=== PATIENT | male | born 1975 ===

== ENCOUNTER → 2020-03-12 15:29 | Outpatient (BNVA) | payer OTHER, SELFPAY | PROVIDERS: PCP Internal Medicine; Visit Provider Internal Medicine | DX: Z76.89 Persons encountering health services in other specified circumstances (principal) ==

== ENCOUNTER → 2020-05-13 15:58 | Outpatient (BNVA) | payer BC, SELFPAY | PROVIDERS: PCP Internal Medicine; Visit Provider Internal Medicine ==

== ENCOUNTER → 2020-08-11 15:59 | Outpatient (BNVA) | payer BC, SELFPAY | PROVIDERS: PCP Internal Medicine; Visit Provider Internal Medicine ==

== ENCOUNTER → 2020-11-28 08:38 | Outpatient (BNVA) | payer BC, SELFPAY | PROVIDERS: PCP Internal Medicine; Visit Provider Urology | DX: N52.9 Male erectile dysfunction, unspecified (principal); R39.15 Urgency of urination; R35.0 Frequency of micturition | CPT/HCPCS: 51798 ==

== ENCOUNTER 2021-03-17 11:30 | Outpatient (REF) | payer BC, SELFPAY ==
[2021-03-17 11:46] LABS: Binax Internal Control QC Valid; Binax Now Covid-19 Ag Negative (Negative)
== END 2021-03-17 11:31 | disposition home or self-care (01) ==
LOC: HO.LAB 11:30
PROVIDERS: PCP Internal Medicine; Visit Provider Internal Medicine
DX: Z13.89 Encounter for screening for other disorder (principal)

== ENCOUNTER 2021-09-02 10:52 | Outpatient (REF) | payer BC, SELFPAY ==
[2021-09-02 13:44] LABS: Hematocrit 48.5 % (42.0-52.0); Hemoglobin 16.3 g/dl (14.0-18.0); Mean Corpuscular HGB Conc 33.6 g/dl (31.0-36.0); Mean Corpuscular Hemoglobin 30.1 pg (27.0-33.0); Mean Corpuscular Volume 89.6 fL (80.0-98.0); Mean Platelet Volume 9.1 fL (9.4-12.4); Platelet Count 210 X10*3/uL (160-400); Red Blood Count 5.41 X10*6/uL (4.60-5.80); Red Cell Distribution Width 12.3 % (11.0-16.0)
[2021-09-02 14:03] LABS: Alanine Aminotransferase 91 U/L (0-40); Albumin Level 4.5 g/dL (3.5-5.0); Alkaline Phosphatase 49 U/L (39-117); Anion Gap 11 (12-20); Aspartate Amino Transferase 48 U/L (5-37); Bilirubin Direct 0.3 mg/dL (0.0-0.5); Bilirubin Total 0.8 mg/dL (0.0-1.0); Blood Urea Nitrogen 17 mg/dL (9-16); Calcium 9.2 mg/dL (8.4-10.2); Carbon Dioxide 27 mmol/L (22-29); Chloride 106 mmol/L (96-108); Cholesterol 322 mg/dL; Estimated Glomerular Filt Rate > 60; Glucose Random 93 mg/dL (60-115); HDL Cholesterol 47 mg/dL; LDL Cholesterol Calculated 218 mg/dl; Potassium 4.5 mmol/L (3.3-5.1); Sodium 139 mmol/L (135-145); Total Protein 7.6 g/dL (6.5-8.0); Triglycerides 285 mg/dL
[2021-09-02 14:28] LABS: Prostate Specific Antigen Scr 2.03 ng/mL (<0.05-4.0); Thyroid Stimulating Hormone 1.21 uIU/mL (0.32-4.0)
== END 2021-09-02 10:53 | disposition home or self-care (01) ==
LOC: HO.HMGCLDS 10:52
PROVIDERS: PCP Internal Medicine; Visit Provider Internal Medicine
DX: R31.9 Hematuria, unspecified (principal)
CPT/HCPCS: 36415; 80048; 80061; 80076; 84153; 84443; 85027

== ENCOUNTER 2021-09-04 15:49 | Outpatient (REF) | payer BC, SELFPAY ==
[2021-09-04 16:46] LABS: Appearance Urine CLEAR; Color Urine YELLOW; Glucose Urine UA NEG (NEG); Leukocyte Esterase Urine NEG (NEG); Nitrite Urine NEG (NEG); PH 5.5 (5.0-8.0); Specific Gravity - Urine >= 1.030 (1.005-1.025); Urine Blood TRACE (NEG); Urine Ketones NEG (NEG); Urine Protein NEG (NEG-TRACE)
[2021-09-04 16:51] LABS: Squamous Epithelial Cell Urine 1+ /LPF; WBC Urine 0-2 /HPF (0-4)
== END 2021-09-04 15:50 | disposition home or self-care (01) ==
LOC: HO.LAB 15:49
PROVIDERS: PCP Internal Medicine; Visit Provider Internal Medicine
DX: R31.9 Hematuria, unspecified (principal)
CPT/HCPCS: 81001

== ENCOUNTER 2021-09-07 08:48 | Outpatient (REF) | payer BC, SELFPAY ==
[2021-09-07 10:02] LABS: COVID-19 Test Negative (Negative)
== END 2021-09-07 08:49 | disposition home or self-care (01) ==
LOC: HO.LAB 08:48
PROVIDERS: Visit Provider Internal Medicine
DX: Z20.822 Contact with and (suspected) exposure to COVID-19 (principal)
CPT/HCPCS: 87635; C9803

== ENCOUNTER 2021-10-21 08:52 | Outpatient (REF) | payer BC, SELFPAY ==
[2021-10-21 09:23] LABS: COVID-19 Test Positive (Negative); IDNOW Serial# 55D5AD1C
== END 2021-10-21 08:53 | disposition home or self-care (01) ==
LOC: HO.LAB 08:52
PROVIDERS: Visit Provider Internal Medicine
DX: Z20.822 Contact with and (suspected) exposure to COVID-19 (principal)
CPT/HCPCS: 87635; C9803

== ENCOUNTER 2023-07-25 15:28 | Outpatient (AMB) | payer BC, SELFPAY ==
[2023-07-25 15:31] VITALS: BP 122/80; BMI 34.2
--- NOTE | 2023-07-25 15:31 | A.OFFPC_ITS ---
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 Required: No Accompanied by: Significant Other Allergies Seasonal Allergies Allergy (Mild, Verified 07/25/23 15:50) Unknown oxycodone [Percocet] Adverse Reaction (Unknown, Verified 07/25/23 15:50) nausea Medication List - Last Reconciled 07/25/23 by Xochilt Campbell MD comp.[email or web address],[email or web address],long,large ([facility] Anti-Embolism Stocking) As Directed rivaroxaban (Xarelto) 1 tab PO DAILY Tobacco use date assessed: 07/25/23 Dental Screening Dental Screen Date: 07/25/23 Did you have a dental visit in the last 12 months?: No Did you have a dental problem in the last 6 months where you did not have access to dental care?: No Was dental information given to patient?: Patient has dentist HPI HPI Comments History of Present Illness Details This is a 48-year-old male with chronic bilateral leg DVT, obesity lumbar spondylosis that comes today accompanied by complaining of episodes of tremors and dizziness like feeling that he is going to faint that resolved with sugar. This has been going on for the past 6 months. He bought a glucometer and takes his blood glucose regularly and it ranges from 56 to 90 after eating. He denies any weight loss but does have polyuria and polydipsia. On chronic anticoagulation for his DVT. He has obese with a BMI of 34.2 and was advised to do diet and exercise to reach BMI goal less than 30. Has chronic low back pain due to lumbar spondylosis and I will refer him to pain management. No chest pain or shortness on breath. [facility] Medical History (Updated 07/25/23 @ 16:40 by Xochilt Campbell MD) Neck pain Nocturnal hypoxemia Obesity (BMI 30-39.9) History of renal failure Hypercholesteremia History of DVT (deep vein thrombosis) JESSICA (obstructive sleep apnea) Surgical History History of hip surgery H/O knee surgery History of back surgery H/O kidney removal Family History (Updated 07/25/23 @ 15:37 by MARISABEL Almanza) Mother No problems noted. Father No problems noted. Social History (Updated 07/25/23 @ 15:37 by MARISABEL Almanza) Housing: House Alcohol intake: current Alcohol intake frequency: holidays/special occasions only Alcohol type: beer Patient Tobacco Use Status: Never used Tobacco e-Cigarette/Vaping Use: Never Used Second Hand Smoke Exposure: No service: No Current occupational status: employed Current occupational exposures/hazards: No Cognitive needs: No Hearing needs: No Vision needs: Yes Questionnaire PHQ-9 Over the last 2 weeks, how often have you been bothered by any of the following problems? 1. Little interest or pleasure in doing things: not at all 2. Feeling down, depressed, or hopeless: not at all 3. Trouble falling or staying asleep, or sleeping too much: not at all 4. Feeling tired or having little energy: not at all 5. Poor appetite or overeating: not at all 6. Feeling bad about yourself - or that you are a failure or have let yourself or your family down: not at all 7. Trouble concentrating on things, such as reading the newspaper or watching television: not at all 8. Moving or speaking so slowly that other people could have noticed. Or the opposite - being so fidgety or restless that you have been moving around a lot more than usual: not at all 9. Thoughts that you would be better off or of hurting yourself in some way: not at all Total score: 0 Depression Screening Interpretation: Negative Depression Screening Done: Yes [id number] - PHQ-9 Billing: Yes Source: Developed by Drs. Hieu Rothman, Tina Greenberg, Kennedy Nicholson and colleagues, with an educational tera from [employer]. Thrive Questionnaire Date Thrive assessed: 07/25/23 I am a: Patient What is your living situation today?: I have a steady place to live Within the past 12 months, did the food you bought not last and you didn't have the money to get more?: Never true Within the past 12 months, did you worry whether your food would run out before you got money to buy more?: Never true Do you have trouble paying for medicines?: No Do you have trouble getting transportation to medical appointments?: No Do you have trouble paying your heating and electricity bill?: No Do you have trouble taking care of your child, family member or friend?: No Do you have trouble with day-to-day activities such as bathing, preparing meals, shopping, managing finances, etc.?: No Are you currently unemployed and looking for a job?: No Are you interested in more education?: No Please select the resources that you would like help with: None Currently or been in a relationship where the following occur: no concerns r eported THRIVE Score: 0 AUDIT C Alcohol Use Questionnaire (AUDIT-C) 1. How often do you have a drink containing alcohol?: Monthly or less 2. How many drinks containing alcohol do you have on a typical day when you are drinking?: 1 or 2 3. How often do you have six or more drinks on one occasion?: Never Total Score: 1 Score Reviewed/Action Taken: No ANGELIC-7 AMB Questionnaire ANGELIC-7 Date ANGELIC - 7 assessed: 07/25/23 Feeling nervous, anxious, or on edge: 0 = Not at all Not being able to stop or control worryin = Not at all Worrying too much about different things: 0 = Not at all Trouble relaxin = Not at all Being so restless that it is hard to sit still: 0 = Not at all Becoming easily annoyed or irritable: 0 = Not at all Feeling afraid as if something awful might happen: 0 = Not at all Total ANGELIC-7 score (0-4 normal; 5-9 mild; 10-14 moderate; 15-21 severe): 0 Source: Developed by Drs. Hieu Rothman, Tian Greenberg, Kennedy Nicholson and colleagues, with an educational tera from [employer]. ANGELIC-7 Assessment Billing ANGELIC-7 Assessment Tool: ANGELIC-7 Assessment 68199 Review of Systems Const All systems reviewed & are unremarkable except as noted in HPI and below Eyes Reports no additional complaints, Denies change in vision and Denies other visual disturbances Card Denies chest pain at rest, Denies chest pain with activity, Denies edema, Denies irregular heart rhythm, Denies claudication, Denies dyspnea, Denies dyspnea on exertion, Denies orthopnea, Denies paroxysmal nocturnal dyspnea and Denies slow heart rate Resp Denies cough, Denies dyspnea and Denies dyspnea on exertion Physical exam (Primary Care) Vital Signs: Last Vital Signs BP 122/80 07/25/23 15:31 BMI result Body Mass Index 34.2 Tobacco/Smoking Status: Tobacco use Status Tobacco use date assessed 07/25/23 07/25/23 15:40 Patient Tobacco Use Status Never used Tobacco 07/25/23 15:40 e-Cigarette/Vaping Use Never Used 07/25/23 15:40 PHQ-9: PHQ-9 Score PHQ-9: Total score 0 07/25/23 15:53 Depression Screening Interpretation: Negative Thrive Assessment: Date of Thrive Assessment Date Thrive assessed 07/25/23 07/25/23 15:40 Currently or been in a relationship where the following occur: no concerns reported Resp Effort & Inspection: normal respiratory effort Auscultation: clear to auscultation bilaterally Cardio Jugular venous distension: no JVD Rate: regular rate Rhythm: regular rhythm Heart sounds: S1 normal heart sound present and S2 normal heart sound present Extrem General: Yes full ROM Assessment and Plan Assessment & Plan (1) Hypoglycemia: Code(s): E16.2 - Hypoglycemia, unspecified Plan: Labs ordered. (2) Lumbar spondylolysis: Code(s): M43.06 - Spondylolysis, lumbar region Plan: Referred to pain management. (3) Obesity (BMI 30.0-34.9): Code(s): E66.9 - Obesity, unspecified Plan: Start diet and exercise. BMI goal is less than 30. (4) DVT, bilateral lower limbs: Code(s): I82.403 - Acute embolism and thrombosis of unspecified deep veins of lower extremity, bilateral Qualifiers: Affected thrombotic vein of extremity: unspecified vein of extremity Chronicity: chronic Qualified Code(s): I82.503 - Chronic embolism and thrombosis of unspecified deep veins of lower extremity, bilateral Plan: Continue Xarelto. Orders: Orders Glucagon Today E16.2 - Hypoglycemia, unspecified Lipid Panel Today E78.5 - Hyperlipidemia, unspecified Comprehensive [place]. Panel Fast Today E16.2 - Hypoglycemia, unspecified Insulin Today E16.2 - Hypoglycemia, unspecified Referrals Pain Management Referral M43.06 - Spondylolysis, lumbar region Coding Level of Care Code Est Pt Level 4 (19166) Complex EM visit Add On G2211 Diagnoses Hypoglycemia E16.2 Lumbar spondylolysis M43.06 Obesity (BMI 30.0-34.9) E66.9 Chronic deep vein thrombosis (DVT) of both lower extremities, unspecified vein I82.503 Affected thrombotic vein of extremity: unspecified vein of extremity Chronicity: chronic Additional Codes ANGELIC-7 Assessment Billing - ANGELIC-7 Assessment Tool: ANGELIC-7 Assessment 31347 ([id number]) Time Spent (min) 23
== END 2023-07-25 16:03 | disposition home or self-care (01) ==
PROVIDERS: PCP Internal Medicine; Visit Provider Internal Medicine
DX: E16.2 Hypoglycemia, unspecified (principal); I82.503 Chronic embolism and thrombosis of unspecified deep veins of lower extremity, bilateral; E66.9 Obesity, unspecified; Z68.34 Body mass index [BMI] 34.0-34.9, adult; M43.06 Spondylolysis, lumbar region
CPT/HCPCS: 99214

== ENCOUNTER 2023-07-29 07:50 | Outpatient (REF) | payer BC, SELFPAY ==
--- NOTE | ~2023-07-29 | XR_ITS ---
EXAMINATION: XR lumbar spine 4V min CLINICAL INFORMATION: Reason for Exam M43.06 - Spondylolysis, lumbar region COMPARISON: None available TECHNIQUE: 3 views of the lumbar spine FINDINGS: 5 nonrib-bearing lumbar-type vertebral bodies. Vertebral body heights are maintained. Alignment is maintained. Minimal degenerative change and small anterior disc osteophyte complexes. Disc space heights are maintained. Atherosclerotic calcifications of the abdominal aorta. Partially visualized left femoral orthopedic hardware. XR/XR lumbar spine 4V min IMPRESSION: Mild spondylosis of the lumbar spine, as above detailed.
--- NOTE | ~2023-07-29 | XR_ITS ---
EXAMINATION: XR HIP, LEFT CLINICAL INFORMATION: Pain in the left hip COMPARISON: Report of x-ray of the left femur November 2008. X-ray of the left hip March 2010 TECHNIQUE: Two views of the left hip. FINDINGS: Postoperative changes with femoral nail and proximal screws in place. Screws extend through the gustavo into the femoral head through the neck. Hardware intact. Mild deformity of the proximal humerus only partially visualized in the [id number] the exam. Findings consistent with healed remote fracture. This is noted on the report on x-ray performed in 2008. Images not available for review. XR/XR hip LT w PEL1V IMPRESSION: 1. Postoperative changes. No acute abnormality. 2. Partial visualization of a Deformity of the proximal femur consistent with history of healed remote fracture.
[2023-07-29 08:56] LABS: Alanine Aminotransferase 74 U/L (0-40); Albumin Level 4.2 g/dL (3.5-5.0); Alkaline Phosphatase 59 U/L (39-117); Anion Gap 10 (12-20); Aspartate Amino Transferase 39 U/L (5-37); Bilirubin Total 0.7 mg/dL (0.0-1.0); Blood Urea Nitrogen 15 mg/dL (9-16); Calcium 9.6 mg/dL (8.4-10.2); Carbon Dioxide 30 mmol/L (22-29); Chloride 105 mmol/L (96-108); Cholesterol 263 mg/dL (<200); Estimated Glomerular Filt Rate > 60; Glucose Fasting 95 mg/dL (60-99); HDL Cholesterol 47 mg/dL (>40); LDL Cholesterol Calculated 168 mg/dL (<100); Potassium 4.3 mmol/L (3.3-5.1); Sodium 141 mmol/L (135-145); Total Protein 7.3 g/dL (6.5-8.0); Triglycerides 240 mg/dL (<150)
[2023-07-29 09:11] LABS: Insulin 29 uU/mL (2-29); Thyroid Stimulating Hormone 0.97 uIU/mL (0.32-4.0)
[2023-07-31 07:04] LABS: C Peptide 3.69 ng/mL (0.80-3.85)
[2023-08-11 14:59] LABS: Insulin Growth Factor 2 456 ng/mL (267-616)
== END 2023-07-29 07:51 | disposition home or self-care (01) ==
LOC: HO.LAB 07:50
PROVIDERS: Absent Provider Nurse Practitioner Family; PCP Internal Medicine; Visit Provider Internal Medicine
DX: E66.9 Obesity, unspecified (principal); E16.2 Hypoglycemia, unspecified; E78.5 Hyperlipidemia, unspecified; M43.06 Spondylolysis, lumbar region; M25.552 Pain in left hip; Z98.890 Other specified postprocedural states
CPT/HCPCS: 36415; 72110; 73502; 80053; 80061; 82943; 83525; 83789; 84134; 84443; 84681

== ENCOUNTER 2023-07-29 11:15 | Outpatient (AMB) | payer BC, SELFPAY ==
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
[2023-07-29 11:25] VITALS: BP 140/90; PULSE 76; O2SAT 100; BMI 34.1
== END 2023-07-29 12:09 | disposition home or self-care (01) ==
PROVIDERS: PCP Internal Medicine; Referring Provider Internal Medicine; Visit Provider Nurse Practitioner Family
DX: M54.2 Cervicalgia (principal); M43.06 Spondylolysis, lumbar region; M62.838 Other muscle spasm; M25.552 Pain in left hip; Z98.890 Other specified postprocedural states; M53.3 Sacrococcygeal disorders, not elsewhere classified
CPT/HCPCS: 99204

== ENCOUNTER → 2023-10-12 14:22 | Outpatient (RCR) | payer OTHER, SELFPAY ==
--- NOTE | 2020-03-07 15:51 | P.PNHO_ITS ---
Medical Summary - Medical Summary Date of Service: 03/07/20 Chief complaint: Follow-up for: Bilateral DVT. Medical Summary: DIAGNOSIS: Left lower extremity DVT in 1999 after knee surgery. Recurrent DVT 2002. Right lower extremity DVT 2006. CURRENT THERAPY: On Xarelto 20 mg daily. Interval History Interval history: This is a pleasant 44 year-old gentleman, here for a follow-up visit. He is doing extremely well. He tells me he was recently diagnosed with sleep apnea syndrome. He had the sleep study done twice at home. He would like to follow-up with a automobile mechanic assistant. He denies any lower extremity edema. No headache dizziness. Denies chest pain or trouble breathing. He denies nausea vomiting, heartburn nor indigestion. He has no diarrhea. No gross blood in the stools. He enjoys a good apetite, now. He has gained some weight. Now his aim is to focus on healthy eating and exercising. No fever chills or night sweats. He is in good spirits. Rest of the ROS is unremarkable. Previous history: His cholesterol is high. He does not wish to take medications. Would rather do weight with diet control and exercise. He had to have the stimulator removed, from his backside. It was sticking out, and uncomfortable. The battery had already, so it was of no use. He is off all pain medications. He was tired of all the side effects. Review of Systems - Constitutional Reports system reviewed and no additional complaints, except as documented, Denies body ache(s) - Eyes Reports system reviewed and no additional complaints, except as documented, Denies blurry vision - ENT Reports system reviewed and no additional complaints, except as documented - Cardiovascular Reports system reviewed and no additional complaints, except as documented, Denies chest pain at rest - Respiratory Reports no additional respiratory complaints, Denies chest congestion - Gastrointestinal Reports system reviewed and no additional complaints, except as documented, Denies abdominal pain, Denies change in bowel habits - Genitourinary Genitourinary: Reports no additional male genitourinary complaints - Musculoskeletal Reports system reviewed and no additional complaints, except as documented - Integumentary/Breasts Skin/Breast: Reports no additional skin complaints - Neurologic Reports system reviewed and no additional complaints, except as documented - Psychiatric Reports system reviewed and no additional complaints, except as documented - Endocrine Reports no additional endocrine complaints - Hematologic/Lymphatic Reports system reviewed and no additional complaints, except as documented - Allergic/Immunologic Reports system reviewed and no additional complaints, except as documented [facility] Medical History: Medical History (Last Updated 03/07/20 @ 15:57 by Lindsay Johnson RN) History of DVT (deep vein thrombosis) History of renal failure Hypercholesteremia JESSICA (obstructive sleep apnea) Functional capacity: independent ambulation Patient : No Surgical History: Surgical History (Last Updated 03/07/20 @ 15:57 by Lindsay Jhonson RN) H/O kidney removal H/O knee surgery History of back surgery History of hip surgery Home Medications and Allergies Home Medications Medication Instructions Recorded Confirmed Type rivaroxaban [Xarelto] 1 tab PO DAILY 03/07/20 03/07/20 History Allergies Allergy/AdvReac Type Severity Reaction Status Date / Time oxycodone [Percocet] AdvReac Unknown nausea Verified 09/25/19 00:00 Exam - Constitutional Present: no acute distress - Routine HEENT Exam Head: Present: normal inspection Eye: Present: normal appearance ENT: Present: mucous membranes moist - Routine Neck Exam Present: full ROM - Routine Respiratory Exam Present: CTAB - Routine Cardiovascular Exam Cardiovascular: Present: RRR, S1, S2 - Routine Abdominal Exam Present: soft, nontender - Routine Extremities Exam Present: nontender - Routine Back/Spine/Pelvis Exam Back/Spine: Present: full ROM - Routine Skin Exam Present: intact - Routine Neurological Exam Present: alert, oriented X3 - Routine Psychiatric Exam Present: normal affect Data - Labs CBC & Chem 7: 03/07/20 15:45 03/07/20 15:45 Progress Note: A/P (1) DVT, bilateral lower limbs Status: Acute Assessment and plan: 44 year-old male with history of left, Recurrent Thrombosis, dating back to 1999 and right lower extremity deep vein thrombosis in 2006. He has developed recurrent blood clots when he was taken off Coumadin and has been recommended long-term anticoagulation. He was seen back in October of 2013. He was restarted on warfarin. However he elected to stop it. At this time, I have discussed pros and cons of long-term anticoagulation and he is willing to be compliant with the medication and for follow up at hematology clinic. He has been started on a NOAC, for convenience, in November of last year. He is clinically doing well. D-DIMER is <200, today. That is reassuring. PLAN: I have set up an appointment with Dr. Medina, for his sleep apnea syndrome so a CPAP machine can be arranged. His appointment is on TuesdayMarch 12 at 15:30. The plan is to continue to monitor him. He will return in 1 year for a follow-up visit. He will call in case he needs to have surgery, for toy-operative anticoagulation. Thank you, CC: Xochilt Campbell. Dr. Estrada. Dr. Medina. - Time Spent With Patient Total time spent is greater than 50% in coordination of care (as documented) at patient's floor/unit and/or counseling patient: 25 - 35 minutes
[2020-03-07 15:52] VITALS: BP 142/78; PULSE 76; RESP 18; TEMP 36.1; O2SAT 95; BMI 34.0
[2020-03-07 15:52] LABS: MANUAL DIFF FLAG NO
[2020-03-07 15:58] LABS: Basophils Absolute Auto 0.1 X10*3/uL (0.0-0.2); Basophils Percent Auto 0.7 % (0-2); Eosinophils Absolute Auto 0.2 X10*3/uL (0.0-0.4); Eosinophils Percent Auto 3.3 % (0-4); Hematocrit 46.4 % (42-52); Imm Gran Abs Auto 0.03 X10*3/uL (0.00-0.03); Imm Gran Pct Auto 0.4 % (0.0-0.4); Lymphocytes Absolute Auto 2.5 X10*3/uL (1.2-4.9); Lymphocytes Percent Auto 33.7 % (20-40); Mean Corpuscular HGB Conc 34.5 g/dl (31.0-36.0); Mean Corpuscular Hemoglobin 30.5 pg (27.0-33.0); Mean Corpuscular Volume 88.5 fL (80-98); Mean Platelet Volume 8.6 fL (9.4-12.4); Monocytes Absolute Auto 0.9 X10*3/uL (0.1-1.2); Monocytes Percent Auto 12.5 % (2-11); Neutrophils Absolute Auto 3.6 X10*3/uL (2.0-8.3); Neutrophils Percent Auto 49.4 % (45-73); Platelet Count 202 X10*3/uL (160-400); Red Blood Count 5.24 X10*6/uL (4.60-5.80); White Blood Count 7.4 X10*3/uL (4.8-10.8)
[2020-03-07 16:12] LABS: D Dimer < 200 NG/ML
[2020-03-07 16:20] LABS: Alanine Aminotransferase 58 U/L (0-40); Albumin Level 4.2 g/dL (3.5-5.0); Alkaline Phosphatase 53 U/L (39-117); Anion Gap 10 (12-20); Aspartate Amino Transferase 26 U/L (5-37); Bilirubin Total 0.6 mg/dL (0.0-1.0); Blood Urea Nitrogen 19 mg/dL (9-16); Calcium 9.5 mg/dL (8.4-10.2); Carbon Dioxide 31 mmol/L (22-29); Chloride 103 mmol/L (96-108); Creatinine Clr Calc Pharmacy 100.7; Estimated Glomerular Filt Rate > 60; Glucose Random 93 mg/dL (60-115); Potassium 4.1 mmol/l (3.3-5.1); Sodium 140 mmol/L (135-145); Total Protein 6.9 g/dL (6.5-8.0)
--- NOTE | 2021-05-29 10:40 | HE.ONCSEC ---
I CALLED PATIENT BACK TO RESCHEDULE AFTER HEARING THE VOICEMAIL THE PATIENT LEFT SAYING HE HAD TO CANCEL APPT DUE TO WORK EMERGENCY. PATIENT DID NOT ANSWER MY CALL BACK BUT I LEFT A DETAILED MESSAGE INFORMING PATIENT TO CALL BACK TO RESCHEDULE HIS APPT.
--- NOTE | 2022-03-30 15:16 | HE.ONCSEC ---
pt called 03/30. Would like recommendation for Omar around his surgical procedure faxed to [phone], Attn: Gilberto. Dr Deshpande to advise.
--- NOTE | 2022-03-31 11:09 | HO.HEMONCSCH ---
LVM informing pt to stop xarelto 48 hours before procedure.
== END | disposition home or self-care (01) ==
LOC: HO.ONC 03-07 15:31
PROVIDERS: PCP Internal Medicine; Visit Provider Internal Medicine Medical Oncology
DX: Z86.718 Personal history of other venous thrombosis and embolism (principal); G47.33 Obstructive sleep apnea (adult) (pediatric); Z79.01 Long term (current) use of anticoagulants
CPT/HCPCS: 36415; 80053; 85025; 85379; 99214

== ENCOUNTER 2023-10-14 11:20 | Outpatient (AMB) | payer BC, SELFPAY ==
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
[2023-10-14 11:27] VITALS: BP 163/86; PULSE 68; O2SAT 99; BMI 34.9
== END 2023-10-14 12:39 | disposition home or self-care (01) ==
PROVIDERS: PCP Internal Medicine; Visit Provider Nurse Practitioner Family
DX: M43.06 Spondylolysis, lumbar region (principal); M62.838 Other muscle spasm; M25.552 Pain in left hip; Z98.890 Other specified postprocedural states; M25.562 Pain in left knee
CPT/HCPCS: 99214

== ENCOUNTER → 2023-10-14 11:20 | Outpatient (BNVA) | payer BC, SELFPAY | PROVIDERS: PCP Internal Medicine; Visit Provider Nurse Practitioner Family ==

== ENCOUNTER 2024-07-26 17:17 | Outpatient (AMB) | payer BC, SELFPAY ==
[2024-07-26 17:36] VITALS: BP 150/100; BMI 35.1
--- NOTE | 2024-07-26 17:36 | A.OFFPC_ITS ---
Vital Signs 07/26/24 17:36 Height 5 ft 11 in Weight 252 lb BMI 35.1 BP 150/100 H Blood Pressure Location Lt brachial Position Sitting Intake Visit Reasons: Rsched from 12/21 CPE - see comments Pediatric Medical Assistant Required: No Accompanied by: Spouse Allergies Seasonal Allergies Allergy (Mild, Verified 07/26/24 18:08) Unknown oxycodone [Percocet] Adverse Reaction (Unknown, Verified 07/26/24 18:08) nausea Medication List - Last Reconciled 07/26/24 by Xochilt Campbell MD comp.[email or web address],[email or web address],long,large ([facility] Anti-Embolism Stocking) As Directed rivaroxaban (Xarelto) 1 tab PO DAILY Tobacco use date assessed: 07/26/24 Dental Screening Dental Screen Date: 07/26/24 Did you have a dental visit in the last 12 months?: No Did you have a dental problem in the last 6 months where you did not have access to dental care?: No Was dental information given to patient?: Patient has dentist HPI HPI Comments History of Present Illness Details This is a 49-year-old male that comes for his physical exam accompanied by . Has not had a colonoscopy and will be refer through open access. Has family history of prostate cancer and would like a PSA. Has a finger lesion and would have surgical removal this month by ortho. He also has history of recurrent DVT and needs referral to Hematology-Oncology. Complains of polyuria and will be referred to Urology. Also complains of occasional chest pain and went to [facility] about a year ago same that they had a small heart attack by an EKG. I will refer him to Cardiology and order a stress test. He is obese with a BMI of 35.1 and was advised to do diet and exercise to reach BMI goal less than 30. Vaccines are up-to-date. [facility] Medical History (Updated 07/27/24 @ 14:39 by Xochilt Campbell MD) Neck pain Nocturnal hypoxemia Obesity (BMI 30-39.9) History of renal failure Hypercholesteremia History of DVT (deep vein thrombosis) JESSICA (obstructive sleep apnea) Surgical History History of hip surgery H/O knee surgery History of back surgery H/O kidney removal Family History (Updated 07/26/24 @ 18:11 by Xochilt Campbell MD) Mother Essential hypertension Father CAD (coronary artery disease) Social History Housing: House Alcohol intake: current Alcohol intake frequency: holidays/special occasions only Alcohol type: beer Patient Tobacco Use Status: Never used Tobacco e-Cigarette/Vaping Use: Never Used Second Hand Smoke Exposure: No service: No Current occupational status: employed Current occupational exposures/hazards: No Cognitive needs: No Hearing needs: No Vision needs: Yes Questionnaire PHQ-9 Over the last 2 weeks, how often have you been bothered by any of the following problems? 1. Little interest or pleasure in doing things: not at all 2. Feeling down, depressed, or hopeless: not at all 3. Trouble falling or staying asleep, or sleeping too much: nearly every day 4. Feeling tired or having little energy: several days 5. Poor appetite or overeating: several days 6. Feeling bad about yourself - or that you are a failure or have let yourself or your family down: not at all 7. Trouble concentrating on things, such as reading the newspaper or watching television: several days 8. Moving or speaking so slowly that other people could have noticed. Or the opposite - being so fidgety or restless that you have been moving around a lot more than usual: not at all 9. Thoughts that you would be better off or of hurting yourself in some way: not at all Total score: 6 Depression Screening Interpretation: Positive Depression Screening Follow-up: Existing condition and Follow-up Visit Requested Depression Screening Done: Yes 29271 - PHQ-9 Billing: Yes Source: Developed by Drs. Hieu Rothman, Tina Greenberg, Kennedy Nicholson and colleagues, with an educational tera from [employer]. Thrive Questionnaire Date Thrive assessed: 07/26/24 I am a: Patient What is your living situation today?: I have a steady place to live Within the past 12 months, did the food you bought not last and you didn't have the money to get more?: Never true Within the past 12 months, did you worry whether your food would run out before you got money to buy more?: Never true Do you have trouble paying for medicines?: No Do you have trouble getting transportation to medical appointments?: No Do you have trouble paying your heating and electricity bill?: No Do you have trouble taking care of your child, family member or friend?: No Do you have trouble with day-to-day activities such as bathing, preparing meals, shopping, managing finances, etc.?: No Are you currently unemployed and looking for a job?: No Are you interested in more education?: No Please select the resources that you would like help with: None Currently or been in a relationship where the following occur: No concerns reported THRIVE Score: 0 AUDIT C Alcohol Use Questionnaire (AUDIT-C) 1. How often do you have a drink containing alcohol?: Monthly or less 2. How many drinks containing alcohol do you have on a typical day when you are drinking?: 1 or 2 3. How often do you have six or more drinks on one occasion?: Never Total Score: 1 ANGELIC-7 AMB Questionnaire ANGELIC-7 Date ANGELIC - 7 assessed: 07/26/24 Feeling nervous, anxious, or on edge: 1 = Several days Not being able to stop or control worryin = Not at all Worrying too much about different things: 1 = Several days Trouble relaxin = More than half the days Being so restless that it is hard to sit still: 1 = Several days Becoming easily annoyed or irritable: 1 = Several days Feeling afraid as if something awful might happen: 0 = Not at all Total ANGELIC-7 score (0-4 normal; 5-9 mild; 10-14 moderate; 15-21 severe): 6 Source: Developed by Drs. Hieu Rothman, Tina Greenberg, Kennedy Nicholson and colleagues, with an educational tera from [employer]. ANGELIC-7 Assessment Billing ANGELIC-7 Assessment Tool: ANGELIC-7 Assessment 03025 Review of Systems Const All systems reviewed & are unremarkable except as noted in HPI and below Card Denies chest pain at rest, Denies chest pain with activity, Denies edema, Denies irregular heart rhythm, Denies claudication, Denies dyspnea, Denies dyspnea on exertion, Denies orthopnea, Denies paroxysmal nocturnal dyspnea and Denies slow heart rate Resp Denies cough, Denies dyspnea and Denies dyspnea on exertion GI Denies abdominal pain, Denies change in bowel habits, Denies excessive flatus, Denies nausea and Denies vomiting Denies urinary hesitancy, Denies urinary incontinence and Denies urinary urgency Musc Denies abnormal gait, Denies atrophy, Denies deformity and Denies limited range of motion Skin/Breast Denies bleeding lesions, Denies changing lesions and Denies rash Neuro Denies abnormal gait and Denies lack of coordination Physical exam (Primary Care) Vital Signs: Last Vital Signs BP 150/100 H 07/26/24 17:36 BMI result Body Mass Index 35.1 BMI Assessment/Plan discussion: High BMI High, discussed plan: lifestyle, weight reduction, dietary and physical activity Tobacco/Smoking Status: Tobacco use Status Tobacco use date assessed 07/26/24 07/26/24 17:42 Patient Tobacco Use Status Never used Tobacco 07/26/24 17:42 e-Cigarette/Vaping Use Never Used 07/26/24 17:42 PHQ-9: PHQ-9 Score PHQ-9: Total score 6 07/26/24 18:14 Depression Screening Interpretation: Positive Depression Screening Follow-up: Existing condition and Follow-up Visit Requested Thrive Assessment: Date of Thrive Assessment Date Thrive assessed 07/26/24 07/26/24 17:42 Currently or been in a relationship where the following occur: No concerns reported [facility] Head: Yes normal to inspection, Yes normocephalic and Yes atraumatic Ears: external ears normal Eyes General: appearance normal, both eyes and all related structures Eyelids: Yes eyelids normal Conjunctivae: conjunctivae normal Neck Neck: Yes normal visual inspection and Yes supple Resp Effort & Inspection: normal respiratory effort Auscultation: clear to auscultation bilaterally Cardio Jugular venous distension: no JVD Rate: regular rate Rhythm: regular rhythm Heart sounds: S1 normal heart sound present and S2 normal heart sound present GI Inspection: Yes normal to inspection Palpation (GI): Soft to palpation and nontender Auscultation: normal bowel sounds Skin General skin exam: no rashes or lesions noted Neuro General: no focal motor deficits Extrem General: Yes full ROM Psych Appearance: grossly normal Coding Level of Care Code Est Pt Level 4 (91329) Est Pt Prev Care 40-64y(45648) Diagnoses Physical exam Z00.00 Polyuria R35.89 Chest pain R07.9 Finger lesion L98.9 Chronic deep vein thrombosis (DVT) of both lower extremities, unspecified vein I82.503 Affected thrombotic vein of extremity: unspecified vein of extremity Chronicity: chronic Additional Codes ANGELIC-7 Assessment Billing - ANGELIC-7 Assessment Tool: ANGELIC-7 Assessment 62741 ([id number]) PHQ-9 - 28436 - PHQ-9 Billing: Yes ([id number]) Time Spent (min) 36 Assessment & Plan Assessment & Plan (1) Physical exam: Code(s): Z00.00 - Encounter for general adult medical examination without abnormal findings Category: Medical (2) Polyuria: Code(s): R35.89 - Other polyuria Category: Medical (3) Chest pain: Code(s): R07.9 - Chest pain, unspecified Category: Medical (4) Finger lesion: Code(s): L98.9 - Disorder of the skin and subcutaneous tissue, unspecified Category: Medical (5) DVT, bilateral lower limbs: Code(s): I82.403 - Acute embolism and thrombosis of unspecified deep veins of lower extremity, bilateral Category: Medical Qualifiers: Affected thrombotic vein of extremity: unspecified vein of extremity Chronicity: chronic Qualified Code(s): I82.503 - Chronic embolism and thrombosis of unspecified deep veins of lower extremity, bilateral Plan Repeat physical exam in a year. Order EKG and stress test and referred to Cardiology. Order PSA. Order colonoscopy through open access. Referred to Urology due to polyuria. Referred to Ortho due to finger lesion. Referred to Hematology-Oncology due to history of DVT. Orders: Orders NM cardiolite stress test 07/26/24 R07.9 - Chest pain, unspecified PSA,Total (Free>4and<10) 07/26/24 R35.1 - Nocturia Lipid Panel 07/26/24 E78.5 - Hyperlipidemia, unspecified Complete Blood Count Auto Diff 07/26/24 R07.9 - Chest pain, unspecified ECG 12 lead EKG 07/26/24 R07.9 - Chest pain, unspecified Comprehensive [place]. Panel Fast 07/26/24 R07.9 - Chest pain, unspecified UA CC w/rflx Micro + Cult 07/26/24 R30.0 - Dysuria Thyroid Stimulating Hormone 07/26/24 R07.9 - Chest pain, unspecified Referrals Orthopedics Referral L98.9 - Disorder of the skin and subcutaneous tissue, unspecified Hematology & Oncology Referral I82.503 - Chronic embolism and thrombosis of unspecified deep veins of lower extremity, bilateral Urology Referral R35.89 - Other polyuria Open Access Screening Colonoscopy Referral Z12.12 - Encounter for screening for malignant neoplasm of rectum Cardiology Referral R07.9 - Chest pain, unspecified
== END 2024-07-26 18:12 | disposition home or self-care (01) ==
LOC: HO.HMCH 17:17
PROVIDERS: PCP Internal Medicine; Visit Provider Internal Medicine
DX: Z00.00 Encounter for general adult medical examination without abnormal findings (principal); R35.89 Other polyuria; I82.503 Chronic embolism and thrombosis of unspecified deep veins of lower extremity, bilateral; R07.9 Chest pain, unspecified; L98.9 Disorder of the skin and subcutaneous tissue, unspecified

== ENCOUNTER → 2024-07-26 17:17 | Outpatient (BNVA) | payer BC, SELFPAY | PROVIDERS: PCP Internal Medicine; Visit Provider Internal Medicine | DX: Z00.00 Encounter for general adult medical examination without abnormal findings (principal); R07.9 Chest pain, unspecified; E66.9 Obesity, unspecified; R35.89 Other polyuria; L98.9 Disorder of the skin and subcutaneous tissue, unspecified; I82.503 Chronic embolism and thrombosis of unspecified deep veins of lower extremity, bilateral; R35.1 Nocturia; E78.5 Hyperlipidemia, unspecified; R30.0 Dysuria; Z68.35 Body mass index [BMI] 35.0-35.9, adult; Z85.46 Personal history of malignant neoplasm of prostate | CPT/HCPCS: 96127 ==

== ENCOUNTER 2024-08-10 10:11 | Outpatient (REF) | payer BC, SELFPAY ==
--- NOTE | 2024-08-10 10:16 | ECG_ITS ---
Test Reason : R07.9 Blood Pressure : */* mmHG Vent. Rate : 58 BPM Atrial Rate : 58 BPM P-R Int : 154 ms QRS Dur : 78 ms QT Int : 394 ms P-R-T Axes : 46 11 43 degrees QTcB Int : 386 ms Sinus bradycardia Otherwise normal ECG When compared with ECG of 28-Dec-2013 07:35, No significant change was found Referred By: Xochilt Campbell Electronically Signed By: KONG CEDILLO
[2024-08-10 10:32] LABS: MANUAL DIFF FLAG NO
[2024-08-10 11:25] LABS: Appearance Urine Clear; Color Urine Yellow; Glucose Urine UA Negative (Negative); Leukocyte Esterase Urine Negative (Negative); Nitrite Urine Negative (Negative); Urine Blood Negative (Negative); Urine Ketones Negative (Negative); Urine Protein Negative (Neg-Trace)
[2024-08-10 11:33] LABS: Basophils Absolute Auto 0.1 X10*3/uL (0.0-0.2); Eosinophils Absolute Auto 0.2 X10*3/uL (0.0-0.4); Eosinophils Percent Auto 4.1 % (0-4); Hematocrit 47.7 % (42.0-52.0); Hemoglobin 16.8 g/dl (14.0-18.0); Imm Gran Abs Auto 0.04 X10*3/uL (0.00-0.03); Imm Gran Pct Auto 0.8 % (0.0-0.4); Lymphocytes Absolute Auto 1.8 X10*3/uL (1.2-4.9); Lymphocytes Percent Auto 37.6 % (20-40); Mean Corpuscular HGB Conc 35.2 g/dl (31.0-36.0); Mean Corpuscular Hemoglobin 31.2 pg (27.0-33.0); Mean Corpuscular Volume 88.5 fL (80.0-98.0); Mean Platelet Volume 8.9 fL (9.4-12.4); Monocytes Absolute Auto 0.5 X10*3/uL (0.1-1.2); Monocytes Percent Auto 10.7 % (2-11); Neutrophils Absolute Auto 2.2 x10*3/uL (2.0-8.3); Neutrophils Percent Auto 45.8 % (45-73); Platelet Count 187 X10*3/uL (160-400); Red Blood Count 5.39 X10*6/uL (4.60-5.80); Red Cell Distribution Width 11.8 % (11.0-16.0); White Blood Count 4.8 X10*3/uL (4.8-10.8)
[2024-08-10 11:49] LABS: Alanine Aminotransferase 97 U/L (0-40); Albumin Level 4.1 g/dL (3.5-5.0); Alkaline Phosphatase 62 U/L (39-117); Anion Gap 13 (12-20); Aspartate Amino Transferase 43 U/L (5-37); Bilirubin Total 0.6 mg/dL (0.0-1.0); Blood Urea Nitrogen 11 mg/dL (9-16); Calcium 9.1 mg/dL (8.4-10.2); Carbon Dioxide 26 mmol/L (22-29); Chloride 104 mmol/L (96-108); Cholesterol 282 mg/dL (<200); Estimated Glomerular Filt Rate > 60; Glucose Fasting 88 mg/dL (60-99); HDL Cholesterol 37 mg/dL (>40); Potassium 4.5 mmol/L (3.3-5.1); Sodium 138 mmol/L (135-145); Triglycerides 443 mg/dL (<150)
[2024-08-10 12:11] LABS: PSA,Total (Free>4and<10) 0.74 ng/mL (0.00-4.00)
[2024-08-10 12:13] LABS: Thyroid Stimulating Hormone 0.87 uIU/mL (0.32-4.0)
== END 2024-08-10 10:12 | disposition home or self-care (01) ==
LOC: HO.LAB 10:11
PROVIDERS: PCP Internal Medicine; Visit Provider Internal Medicine
DX: R35.1 Nocturia (principal); R30.0 Dysuria; R07.9 Chest pain, unspecified; E78.5 Hyperlipidemia, unspecified; Z12.5 Encounter for screening for malignant neoplasm of prostate
CPT/HCPCS: 36415; 80053; 80061; 81003; 84153; 84443; 85025; 93005

== ENCOUNTER → 2024-08-10 10:16 | Outpatient (BNV) | payer BC, SELFPAY | PROVIDERS: PCP Internal Medicine; Visit Provider Internal Medicine | DX: R00.1 Bradycardia, unspecified (principal) | CPT/HCPCS: 93010 ==

== ENCOUNTER → 2024-09-13 15:00 | Outpatient (BNV) | payer BC, SELFPAY | PROVIDERS: Visit Provider Internal Medicine Medical Oncology | DX: I82.513 Chronic embolism and thrombosis of femoral vein, bilateral (principal) | CPT/HCPCS: 99204 ==

== ENCOUNTER 2024-09-24 07:45 | Outpatient (REF) | payer BC, SELFPAY ==
--- NOTE | ~2024-09-24 | US_ITS ---
EXAMINATION: US LOWER EXTREMITY VEINS LIMITED FOLLOW UP LEFT HISTORY: HISTORY OF LEFT LEG DVT. COMPARISON: Comparison is made with the prior examination dated 03/23/2018. TECHNIQUE: Duplex and color Doppler sonographic examination of the deep venous system of the left lower extremity was performed. FINDINGS: The common femoral vein is patent demonstrating normal compressibility. There is nonocclusive thrombus in the femoral vein extending into the popliteal vein. Evaluation of the calf veins is limited due to patient body habitus. US/US venous duplex LE LT IMPRESSION: Deep venous thrombosis of the left femoral vein extending into the popliteal vein. A preliminary report was provided to Dr. Deshpande by the radiographer technologist via secure text message on 09/24/2024 at 8:23 AM. Electronically signed by: Hieu Francisco MD 09/24/2024 09:45 AM EDT
== END 2024-09-24 07:46 | disposition home or self-care (01) ==
LOC: HO.US 07:45
PROVIDERS: Visit Provider Internal Medicine Medical Oncology
DX: I82.513 Chronic embolism and thrombosis of femoral vein, bilateral (principal)
CPT/HCPCS: 93971

== ENCOUNTER → 2024-09-24 07:47 | Outpatient (BNV) | payer BC, SELFPAY | PROVIDERS: Visit Provider Radiology Diagnostic Radiology | DX: I82.412 Acute embolism and thrombosis of left femoral vein (principal) | CPT/HCPCS: 93971 ==

== ENCOUNTER 2024-10-05 11:00 | Outpatient (AMB) | payer BC, SELFPAY ==
--- NOTE | 2024-10-05 11:03 | MHC.OFFVIS ---
Vital Signs 10/05/24 11:04 Height 5 ft 11 in Weight 244 lb BMI 34.0 BP 110/64 Blood Pressure Location Rt brachial Position Sitting Pulse 66 Pulse Source Pulse Oximeter Pulse Oximetry (%) 96 Oxygen Delivery Method Room Air Intake Visit Reasons: [place] screening Intake Note: patient new consult for pre Colonoscopy screening. Patient cc: Pt denies any GI sx or concerns at this time. 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 Referred by PCP for pre colonoscopy screening. The patient presents for pre-colonoscopy evaluation and reports generally regular bowel habits with one to three bowel movements per day, influenced by dietary intake. No complaints of constipation or diarrhea, aside from occasional episodes related to specific foods. There is intermittent heartburn after consuming acidic foods, such as spaghetti sauce or pizza, which is typically relieved by Tums. Rare regurgitation episodes occur. Comorbidities include recent changes to anticoagulant therapy from Xarelto to Lovenox due to prior intolerance to Coumadin. Cardiovascular history is notable for a mild heart attack in August 2023, requiring further cardiac clearance before scheduling the colonoscopy. Patient denies a history of GI cancer but reports a great-grandfather with colon cancer. The patient denies blood in stools, abdominal pain, nausea, or vomiting. Also no concerns regarding appetite, weight loss, swallowing difficulties, or other GI symptoms. Social hx: - Abstinent for 40 days, previously occasional cold drinks. No signs of dependency reported. -Occasional cigar use in the context of social drinking by the fireplace; no current use. -denies recreational drug use - family hx as below -denies personal hx of CA -tolerated anesthesia in the past denies difficulty. PFSH Medical History (Updated 10/05/24 @ 11:50 by Shelley Balderrama CNP) Heartburn Colon cancer screening Neck pain Nocturnal hypoxemia Obesity (BMI 30-39.9) History of renal failure Hypercholesteremia History of DVT (deep vein thrombosis) JESSICA (obstructive sleep apnea) Surgical History History of hip surgery H/O knee surgery History of back surgery H/O kidney removal Family History Mother Essential hypertension Father CAD (coronary artery disease) Maternal Grandfather Cancer Social History Housing: House Alcohol intake: current Alcohol intake frequency: holidays/special occasions only Alcohol type: beer Patient Tobacco Use Status: Never used Tobacco e-Cigarette/Vaping Use: Never Used Second Hand Smoke Exposure: No service: No Current occupational status: employed Current occupational exposures/hazards: No Cognitive needs: No Hearing needs: No Vision needs: Yes Review of Systems Const Reports as per HPI ENT Reports as per HPI Card Reports as per HPI Resp Reports as per HPI GI Reports as per HPI Reports as per HPI Physical Exam Vital Signs: Last Vital Signs Pulse 66 10/05/24 11:04 BP 110/64 10/05/24 11:04 Pulse Ox 96 10/05/24 11:04 Oxygen Delivery Method Room Air 10/05/24 11:04 BMI result Body Mass Index 34.0 Const General: healthy appearing, no acute distress and well developed Nutritional Appearance: average body habitus Orientation/consciousness: patient oriented x3 HEENT Head: Yes normal to inspection, Yes normocephalic and Yes atraumatic Face and sinus: Yes normal facial exam Eyes General: appearance normal, both eyes and all related structures Neck Neck: Yes normal visual inspection Resp Effort & Inspection: normal respiratory effort, able to speak in complete sentences, no tracheal deviation and symmetric chest movement Cardio Jugular venous distension: no JVD Rate: regular rate Rhythm: regular rhythm Heart sounds: S1 normal heart sound present, S2 normal heart sound present, no gallops and no murmurs GI Auscultation: normal bowel sounds Neuro General: patient oriented x3 Gait exam (Neuro): Normal gait present Psych Appearance: grossly normal Mental Status: mental status grossly normal Speech and movement: Normal speech and movement present Affect: normal affect Attitude: cooperative Thought process: Normal thought process present Thought content: Normal thought content present Insight: Good insight present (Psych) Judgement: Good judgement present (Psych) Assessment & Plan Assessment & Plan (1) Colon cancer screening: Code(s): Z12.11 - Encounter for screening for malignant neoplasm of colon Category: Medical Plan: Cancer screening based on age and family history of colon cancer (great-grandfather). Additional Testing: Cardiac clearance via scheduled stress test (November 09, 2024) and cardiology review (January 08, 2025). Medication Management: Ensure blood-thinner regimen adjustments closer to the procedure date; bridging therapy with Lovenox anticipated. Lifestyle Recommendations: Follow colonoscopy prep instructions and dietary guidelines as outlined, including clear liquid diet and red/blue/purple color avoidance in beverages/food. Follow-Up: Colonoscopy scheduling after cardiac clearance; patient to expect a scheduling call. (2) Heartburn: Code(s): R12 - Heartburn Category: Medical Plan: Symptoms occur post-consumption of acidic foods and resolve with antacids. No accompanying alarming features. Additional Testing: None required. Medication Management: Continue PRN use of Tums; avoid acidic trigger foods, particularly during evenings. Lifestyle Recommendations: Encourage slower eating pace and chew thoroughly to reduce swallowing difficulties. Follow-Up: As needed, based on symptom resolution. Plan Follow-up after colonoscopy as warranted or sooner as needed Time: I spent a total of 30 minutes on the date of encounter which includes: Preparing to see the patient (reviewed previous documentation, test results and medical history) Performing a medically appropriate exam and/or evaluation Ordering medications, tests, and procedures Documenting clinical information in the health record Medications: New bisacodyl (Dulcolax (bisacodyl)) Take four tablets pre colonoscopy instructions 20 mg (4 x 5 mg) PO ONCE 4 tabs 0RF 1 day polyethylene glycol 3350 (Miralax) per colonoscopy prep instructions 238 grams PO ONCE 238 grams 0RF Coding Level of Care Code New Pt New Pt Level 3 (06585) Patient Type New Diagnoses Colon cancer screening Z12.11 Heartburn R12
[2024-10-05 11:04] VITALS: BP 110/64; PULSE 66; O2SAT 96; BMI 34.0
== END 2024-10-05 11:34 | disposition home or self-care (01) ==
LOC: HO.HGI 11:01
PROVIDERS: PCP Internal Medicine; Visit Provider Nurse Practitioner Family
DX: Z01.818 Encounter for other preprocedural examination (principal); Z12.11 Encounter for screening for malignant neoplasm of colon; R12 Heartburn
CPT/HCPCS: 99203

== ENCOUNTER 2024-10-12 07:37 | Outpatient (REF) | payer BC, SELFPAY ==
--- NOTE | ~2024-10-12 | US_ITS ---
EXAMINATION: US ABDOMEN LIMITED WITH LIVER ELASTOGRAPHY CLINICAL INFORMATION: Elevated liver transaminase levels. COMPARISON: None available. TECHNIQUE: Real-time imaging of the abdominal viscera. Noninvasive ultrasound liver fibrosis assessment is performed using Sheba ElastPQ point quantification shear wave elastography (pSWE) with a 5 MHz transducer. Multiple elastography samples are obtained. FINDINGS: PANCREAS: The visualized pancreatic head and body are normal in appearance. The remainder of the pancreas is obscured from visualization by the overlying bowel gas. LIVER: The liver demonstrates normal size, contour and diffusely mildly increased echogenicity. No focal lesion or intrahepatic biliary duct dilatation. The right lobe measures 13.6 cm in length. The left lobe measures 9.0 cm in length. Portal flow is towards the liver (hepatopetal). Shear wave liver elastography median stiffness is 175 m/s (reference: normal median stiffness is 1.3 m/s or less). IQR/median stiffness to assess sampling precision is 0.08 (reference: good quality data set is IQR/median stiffness of 0.15 or less). This indicates a quality data set. GALLBLADDER: The gallbladder is physiologically distended without evidence of stones, sludge, polyps, wall thickening or pericholecystic fluid. COMMON BILE DUCT: Normal in caliber measuring 0.3 cm in diameter. RIGHT KIDNEY: No hydronephrosis. No renal calculi or focal parenchymal lesions. The kidney measures 12.6 cm in maximum dimension. FREE FLUID: None. US/US abdomen morrison w elastography IMPRESSION: 1. Mildly increased hepatic echogenicity without focal suspicious lesion. Findings most likely represent fatty infiltration and/or underlying hepatocellular disease. 2. Liver elastography: Measurements are suggestive of compensated advanced chronic liver disease but need further test for confirmation. 3. Normal gallbladder and bile ducts. 4. Remainder the exam is normal. REFERENCE: Society of Radiologists in Ultrasound Liver Stiffness Thresholds (2019): LIVER STIFFNESS THRESHOLDS: *Liver Stiffness equal or less than 1.3 m/s: High probability of being normal. *Liver Stiffness less than 1.7 m/s: In the absence of other known clinical signs, rules out compensated advanced chronic liver disease. *Liver Stiffness 1.7-2.1 m/s: Suggestive of compensated advanced chronic liver disease but need further test for confirmation. *Liver Stiffness over 2.1 m/s: Rules in compensated advanced chronic liver disease. *Liver Stiffness over 2.4 m/s: Suggestive of clinically significant portal hypertension. QUALITY OF DATA SET: *IQR/Median value equal or less than 0.15 implies a quality data set. *IQR/Median value over 0.15 implies a poor quality data set. SIGNIFICANT CHANGE FROM PRIOR EXAM: Significant change if liver stiffness measurement is 10% or greater from prior exam. OTHER CONSIDERATIONS: The stage of liver fibrosis may be overestimated in the setting of acute hepatitis, liver inflammation, elevated liver function tests, hepatic vascular congestion, obstructive cholestasis, non-fasting state, and infiltrative diseases such as amyloidosis and lymphoma. In some patients with NAFLD, the liver stiffness thresholds for compensated advanced chronic liver disease may be lower. In causes other than viral hepatitis and NAFLD, liver stiffness thresholds are not well established. Electronically signed by: Moisés Braswell MD 10/12/2024 08:36 AM EDT
== END 2024-10-12 07:38 | disposition home or self-care (01) ==
LOC: HO.US 07:37
PROVIDERS: Visit Provider Internal Medicine
DX: I82.403 Acute embolism and thrombosis of unspecified deep veins of lower extremity, bilateral (principal); R74.01 Elevation of levels of liver transaminase levels
CPT/HCPCS: 76705; 76981

== ENCOUNTER → 2024-10-12 07:40 | Outpatient (BNV) | payer BC, SELFPAY | PROVIDERS: Visit Provider Radiology Diagnostic Radiology | DX: R74.01 Elevation of levels of liver transaminase levels (principal) | CPT/HCPCS: 76705 ==

== ENCOUNTER 2024-10-22 09:18 | Outpatient (REF) | payer BC, SELFPAY ==
--- NOTE | ~2024-10-22 | US_ITS ---
EXAMINATION: US TRIPLEX LOWER EXTREMITY, BILATERAL CLINICAL INFORMATION: Bilateral lower extremity swelling and cramps COMPARISON: None available. TECHNIQUE: Color-flow triplex imaging with spectral analysis and compression Doppler were performed on the bilateral lower extremities. FINDINGS: Right leg: The right common femoral and greater saphenous vein is patent. There is old clot seen along the dependent segment from the proximal to the popliteal vein with mild compression and Doppler flow seen. There is no acute clot visualized at this time. The right peroneal and posterior tibial veins are patent No Trotter's cyst. Left leg: There is old clot visualized from proximal femoral to the popliteal vein with mild compression and Doppler flow visualized.. The left common femoral, peroneal and posterior tibial veins appear patent. There is no acute clot visualized. There is no Trotter's cyst in either lower extremity. US/US venous duplex LE BI IMPRESSION: No acute clot seen. There are bilateral old clots visualized from the proximal superficial femoral vein to the popliteal veins. These are compressible with Doppler flow visualized. Electronically signed by: Sabino Bernardo MD 10/22/2024 10:45 AM EDT
== END 2024-10-22 09:19 | disposition home or self-care (01) ==
LOC: HO.US 09:18
PROVIDERS: PCP Internal Medicine; Visit Provider Internal Medicine Medical Oncology
DX: I82.513 Chronic embolism and thrombosis of femoral vein, bilateral (principal); M79.89 Other specified soft tissue disorders; R25.2 Cramp and spasm
CPT/HCPCS: 93970

== ENCOUNTER → 2024-10-22 09:27 | Outpatient (BNV) | payer BC, SELFPAY | PROVIDERS: PCP Internal Medicine; Visit Provider Radiology Diagnostic Radiology | DX: R22.43 Localized swelling, mass and lump, lower limb, bilateral (principal) | CPT/HCPCS: 93970 ==

== ENCOUNTER → 2024-11-09 07:48 | Outpatient (REF) | payer BC, SELFPAY ==
--- NOTE | ~2024-11-09 | NM_ITS ---
EXERCISE MYOCARDIAL PERFUSION STUDY INDICATION: Chest pain TECHNIQUE: The patient was brought in for an exercise perfusion study on 11/09/2024. Patient performed exercise as per Gilberto protocol and was injected 40 mCi of sestamibi once target heart rate was achieved. Images were obtained using the SPECT gamma camera interlaced with the gating device. Images were obtained in supine position. Resting perfusion study was performed on 11/12/2024. Patient was administered 40 mCi of sestamibi intravenously at rest. Images were then obtained in supine position. Total DLP 91 mGy-cm. Images were processed with the software and compared side to side in short axis, horizontal long axis and vertical long axis views. FINDINGS: Raw aquisition reviewed. The stress perfusion study showed decreased tracer uptake in the distal part of anterior/adjacent anterolateral wall. No significant improvement with CT attenuation correction. The gated study shows normal LV systolic function with calculated LVEF of 70%. LV cavity is normal in size. The gated study shows reduced thickening and contractility in the distal part of anterior wall. Resting study shows no significant perfusion abnormality. Gating at rest reveals normal wall motion with ejection fraction at 66%. The findings are consistent with reversible perfusion defect in the distal part of anterior/the distal anterolateral wall. NM/NM cardiolite stress test IMPRESSION: 1. Myocardial perfusion imaging study shows ischemia in the distal part of anterior/distal anterolateral wall. 2. Gated LVEF is 70% during stress and 66% during rest. 3. Transient ischemic dilatation not present. EKG component of the test reported separately. Electronically signed by: Jelani Marcus MD 11/13/2024 10:32 AM EDT
--- NOTE | 2024-11-09 07:50 | CA_ITS ---
Acquisition Time: 2024-11-09 08:09:17 Total Exercise Time: 00:09:39 Test Indications: CP Medications: XARELTO Protocol: JEISON Max HR: 153 BPM 90% of Pred: 169 BPM Max BP: 160/70 mmHG Max Work Load: 11.1 METS Exercise stress test with exercise 9 mins 39 secs of Jeison Protocol, achieving 90% MPHR, withr eports of 8/10 chest tightness, SOB and dizziness, without any arrythmias, with normotensive response to exercise. Without any EKG changes meeting criteria for ischemia. In recovery, pt's chest tightness gradually improved and breathing returned to baseline. Dizziness resolved. Nuclear images pending. Test reviewed with Dr. Kaiser. Referred By: Xochilt Campbell Electronically Signed By: Holden Guadarrama
== END ==
LOC: HO.CARD 07:48
PROVIDERS: Visit Provider Internal Medicine
DX: R07.9 Chest pain, unspecified (principal); Z79.01 Long term (current) use of anticoagulants
CPT/HCPCS: 78452; 93017; A9500

== ENCOUNTER → 2024-11-09 07:50 | Outpatient (BNV) | payer BC, SELFPAY | DX: R07.9 Chest pain, unspecified (principal); R06.02 Shortness of breath | CPT/HCPCS: 78452; 93016; 93018 ==

== ENCOUNTER 2024-11-22 09:51 | Outpatient (AMB) | payer BC, SELFPAY ==
[2024-11-22 09:57] VITALS: BP 124/88; PULSE 59; BMI 34.4
--- NOTE | 2024-11-22 09:57 | A.OFFVIS_ITS ---
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 He has been having chest pains for the last year. Can happen any time. Sometimes with rest and sometimes during exertion. He has a history of bilateral lower extremity DVT. He has been on Xarelto for a while but more recently on Lovenox. He did exercise stress test during which time he developed chest pain. There were no EKG changes. Perfusion component was our abnormal enhancing referred here. No previous history of any coronary disease or myocardial infarction or cardiomyopathy. Obesity. Has obstructive sleep apnea and has CPAP. [facility] Medical History Heartburn Colon cancer screening Neck pain Nocturnal hypoxemia Obesity (BMI 30-39.9) History of renal failure Hypercholesteremia History of DVT (deep vein thrombosis) JESSICA (obstructive sleep apnea) Surgical History History of hip surgery H/O knee surgery History of back surgery H/O kidney removal Family History Mother Essential hypertension Father CAD (coronary artery disease) Maternal Grandfather Cancer Social History Housing: House Alcohol intake: current Alcohol intake frequency: holidays/special occasions only Alcohol type: beer Patient Tobacco Use Status: Never used Tobacco e-Cigarette/Vaping Use: Never Used Second Hand Smoke Exposure: No service: No Current occupational status: employed Current occupational exposures/hazards: No Cognitive needs: No Hearing needs: No Vision needs: Yes Review of Systems Const Denies daytime sleepiness, Denies difficulty sleeping, Denies snoring, Denies stops breathing during sleep and Denies weakness Eyes Denies loss of vision Card Denies chest pain, Denies rapid heart rate, Denies irregular heart rhythm, Denies claudication, Denies leg edema, Denies lightheadedness, Reports palpitations, Reports dyspnea, Denies dyspnea on exertion, Denies orthopnea, Denies paroxysmal nocturnal dyspnea and Denies slow heart rate Resp Denies cough, Reports dyspnea, Denies dyspnea on exertion, Denies snoring and Denies wheezing GI Reports no additional complaints, Denies hematochezia, Denies change in stool character and Denies dyspepsia Denies dysuria and Denies urinary frequency Musc Denies abnormal gait, Denies muscle weakness and Denies numbness Skin/Breast Denies nail changes and Denies rash Neuro Denies abnormal gait, Denies loss of vision, Denies memory loss, Denies numbness and Denies weakness Psych Denies depression, Reports difficulty concentrating, Denies auditory hallucinations and Denies memory loss Endo Reports palpitations [place]/Lymph Denies easy bruising Aller/Immun Denies wheezing Physical Exam Vital Signs: Last Vital Signs Pulse 59 11/22/24 09:57 BP 124/88 11/22/24 09:57 BMI result Body Mass Index 34.4 Const General: comfortable and no acute distress Orientation/consciousness: patient oriented x3 HEENT Other: Unremarkable Head: Yes normal to inspection Neck Neck: Yes normal visual inspection Chest Chest palpation & inspection: normal inspection of the chest Resp Auscultation: clear to auscultation bilaterally Cardio Palpation: normal PMI Heart sounds: S1 normal heart sound present, S2 normal heart sound present, no gallops, no murmurs and no rubs GI Palpation (GI): Soft to palpation Back/Spine/Pelvis Other: unremarkable Skin General skin exam: no rashes or lesions noted Neuro General: patient oriented x3 Extrem General: Yes normal to inspection Psych Mental Status: mental status grossly normal Office Procedures EKG Details: EKG with underlying sinus rhythm at 59/Min; no ischemic changes; [place] [address]-[id number], Complete Assessment & Plan Assessment & Plan (1) Chest pain: Code(s): R07.9 - Chest pain, unspecified Category: Medical Plan Pertinent studies reviewed. In the recent lower extremity ultrasound, bilateral old clots from proximal superficial femoral vein to popliteal veins. During the exercise stress test, she was able to exercise for 11.1 METS on Gilberto protocol and reached target heart rate. Developed 8/10 chest tightness, shortness of breath and dizzy. No EKG evidence of ischemia. Perfusion component with a ischemia reported in the distal anterior/anterolateral wall. He needs further evaluation. We will ensure there is no concurrent pulmonary embolism due to extensive venous thromboembolic disease. Hence we will do a chest CTA. We will also get an echocardiogram for cardiac function assessment, wall motion findings and any right ventricular dysfunction or pulmonary hypertension. Unless any acute pulmonary embolism, we will plan on cardiac catheterization. For the time being, try low-dose beta-blockers but not sure if he will be able tolerate as he does have lowish heart rates. Sublingual nitroglycerin as needed. Avoid any strenuous physical activity that brings on chest pains. Seek emergency care as needed. Plan discussed with patient as well as significant other and they are in agreement. Orders: Orders CA echo transthoracic complete Today I25.10 - Atherosclerotic heart disease of [place] coronary artery without angina pectoris CT angio chest PE protocol Today I82.503 - Chronic embolism and thrombosis of unspecified deep veins of lower extremity, bilateral, R07.9 - Chest pain, unspecified Medications: New nitroglycerin do not exceed 3 doses per episode 0.4 mg sublingual Q5M PRN 30 tabs 5RF chest pain R07.2 - Precordial pain metoprolol succinate ER (Toprol XL) 25 mg PO DAILY 30 tabs 3RF Coding Level of Care Code New Pt Level 5 (61816) Complex EM visit Add On G2211 Diagnoses Chest pain R07.9 CPT Codes EKG - CPT: 11049-Kdhlirclckwmenlla, Complete ([id number])
== END 2024-11-22 10:39 | disposition home or self-care (01) ==
LOC: HO.HCS 09:51
PROVIDERS: Family Provider Internal Medicine; Visit Provider Internal Medicine
DX: R07.9 Chest pain, unspecified (principal)
CPT/HCPCS: 93010; 99215

== ENCOUNTER → 2024-11-22 09:51 | Outpatient (BNVA) | payer BC, SELFPAY | PROVIDERS: Family Provider Internal Medicine; Visit Provider Internal Medicine | DX: R07.9 Chest pain, unspecified (principal); R00.1 Bradycardia, unspecified | CPT/HCPCS: 93005 ==

== ENCOUNTER → 2024-11-23 07:51 | Outpatient (REF) | payer BC, SELFPAY ==
--- NOTE | 2024-11-23 07:54 | CA_ITS ---
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 Study Quality: Adequate w/Contast ECG Rhythm: Sinus Conclusions: - 1. Normal LV ejection fraction 55-60% 2. Normal cardiac valvular Dopplers 3. No gross pericardial effusion Findings Procedure Information Contrast agent, definity, is being given per protocol without apparent complications. Left Ventricle Normal left ventricular size, thickness, and systolic function. The visually estimated ejection fraction is between 55-60%. Spectral Doppler is indicative of a normal filling pattern. Right Ventricle Normal right ventricular cavity size and systolic function. Atria Both atria are normal in size. Interatrial shunt cannot be excluded. Aortic Valve Normal aortic valve structure and function. There is no aortic valve stenosis. There is no aortic valve regurgitation. Mitral Valve Normal mitral valve structure and function. There is trace mitral valve regurgitation. There is no mitral valve stenosis. Pulmonic Valve The pulmonic valve is likely normal. Tricuspid Valve Likely normal tricuspid valve structure and function. Tricuspid regurgitation envelope is inadequate for calculation of right ventricular systolic pressure. Normal right atrial pressure. Great Vessels All visible segments of the aorta are normal in size. The pulmonary artery was not well visualized. Venous The inferior vena cava is normal in size and collapses greater than 50% with inspiration. Pericardium/Pleural There is no evidence of pericardial effusion. large echolucent structure noted in the liver suggestive of assist. Consider dedicated imaging Prior Study Comparison No prior study available for comparison. Measurements 2D Linear Measurements IVSd: 1.14 0.6-0.9/0.6-1.0 cm LVIDd: 4.87 3.9-5.3/4.2-5.9 cm LVIDd Index: 2.12 2.4-3.2/2.2-3.1 cm/m2 LVIDs: 3.00 2.0-3.6 cm LVPWd: 1.04 0.7-1.1 cm LA Diam: 3.30 2.7-3.8/3.0-4.0 cm LAIDs Index: 1.43 1.5-2.3 cm/m2 LV Mass: 244.30 67-162/88-224 g LV Mass Index: 106.22 43-95/49-115 g/m2 LVOT Diam: 2.40 3.0+(-)1.3 cm 2D Systolic Function EF 4C: 58.70 >55% EF 2C: 51.50 >55% EF BiP: 55.20 >55% Mitral Valve MV Pk E: 0.76 MV PK A: 0.50 MV Decel Time: 165.00 E/A: 1.50 E'Lateral: 11.30 E'Medial: 5.87 E/E' Med: 12.90 E/E' Lat: 6.70 PHT: 48.00 MVA PHT: 4.[address] [place]: 4.58 Aortic Valve AoV Pk Van: 1.13 AoV Mn Van: 0.81 AoV VTI: 0.23 AoV Pk Grad: 5.00 Aov Mn Grad: 3.00 YADIEL Cont.VTI: 3.55 LVOT LVOT Pk Van: 0.95 LVOT Mn Van: 0.64 LVOT VTI: 0.18 LVOT Pk Grad: 4.00 LVOT Mn Grad: 2.00 LVOT Diam: 2.40 LVOT Area: 4.52 Diastolic Function MV Pk E: 0.76 MV Pk A: 0.50 E/A: 1.50 E'Medial: 5.87 E/E' Med: 12.90 E' Laterial: 11.30 E/E' Lat: 6.70 Right Ventricle TAPSE (mm): 24.30 TVS' Van: 13.50 Tricuspid Valve RA Press: 3.00 Great Vessels Aorta Sinus of Valsalva: 3.80 2.0-3.5 cm Ao Asc: 3.20 2.1-3.4 cm Updated in Other Vendor System with Status of Final Hiram Biggs MD electronically signed on 11/23/2024 5:17:17 PM with status of Final
== END ==
LOC: HO.CARD 07:51
PROVIDERS: PCP Internal Medicine; Visit Provider Internal Medicine
DX: I25.10 Atherosclerotic heart disease of native coronary artery without angina pectoris (principal)
CPT/HCPCS: 93306; Q9957

== ENCOUNTER → 2024-11-23 07:54 | Outpatient (BNV) | payer BC, SELFPAY | PROVIDERS: PCP Internal Medicine; Visit Provider Internal Medicine Cardiovascular Disease | DX: I25.10 Atherosclerotic heart disease of native coronary artery without angina pectoris (principal) | CPT/HCPCS: 93306 ==

== ENCOUNTER 2024-11-27 14:39 | Outpatient (REF) | payer BC, SELFPAY ==
--- NOTE | ~2024-11-27 | CT_ITS ---
EXAMINATION: CT ANGIOGRAM CHEST CLINICAL INFORMATION: R07.9 - Chest pain, unspecified COMPARISON: None available. TECHNIQUE: Multiple axial images were obtained through the chest after the administration of 85 mL of Omnipaque 350 intravenous contrast. Extensive vascular post-processing including two-dimensional and three-dimensional reformatted images were created and reviewed on an independent workstation. This CT examination was performed using dose optimization techniques as appropriate, variously including the following: *Automated exposure control *Adjustment of mA and/or kV according to patient size (this includes techniques or standardized protocols for targeted exams where dose is matched to indication/reason for exam; i.e. extremities or head) *Use of iterative reconstruction technique FINDINGS: QUALITY OF STUDY/CONTRAST BOLUS: Suboptimal with incomplete opacification of tertiary branches. PULMONARY ARTERIES: No central pulmonary emboli are present. There is focal low attenuation at a branch point in a pulmonary artery leading in to the posterior medial right lower lobe. THORACIC AORTA: Atherosclerotic ossifications are present in the arch. There is no aneurysm or dissection. LUNGS AND PLEURA: There is minimal dependent atelectasis. Lungs are clear otherwise. There is no pleural effusion or pleural thickening. MEDIASTINUM: No mass, adenopathy, or abnormality. CORONARY ARTERY CALCIFICATION: Present CHEST WALL/AXILLA: No axillary or internal mammary lymphadenopathy. UPPER ABDOMEN: Unremarkable BONES: Unremarkable CT/CT angio chest PE protocol IMPRESSION: Low-attenuation in a posterior right lower lobe pulmonary artery at a branch point raises question of a pulmonary embolus. Fleischner guidelines were followed. Electronically signed by: Cortez Hussein MD 11/27/2024 04:25 PM EDT
[2024-11-27] MEDS: iohexoL 350 MG/ML 100 ML INFUS..BTL IV (16:04)
[2024-11-28 15:47] LABS: Creatinine POC 1.1 mg/dL (0.5-1.4); GFR POC > 60
== END 2024-11-27 14:40 | disposition home or self-care (01) ==
LOC: HO.CT 14:39
PROVIDERS: PCP Internal Medicine; Visit Provider Internal Medicine
DX: R07.9 Chest pain, unspecified (principal); I82.503 Chronic embolism and thrombosis of unspecified deep veins of lower extremity, bilateral
CPT/HCPCS: 71275; 82565; Q9967

== ENCOUNTER → 2024-11-27 14:40 | Outpatient (BNV) | payer BC, SELFPAY | PROVIDERS: PCP Internal Medicine; Visit Provider Radiology Diagnostic Radiology | DX: R07.9 Chest pain, unspecified (principal) | CPT/HCPCS: 71275 ==

== ENCOUNTER 2024-11-28 06:02 | Inpatient (IN) | payer BC, SELFPAY ==
--- NOTE | ~2024-11-28 | XR_ITS ---
EXAMINATION: XR CHEST CLINICAL INFORMATION: Chest pain COMPARISON: None available. TECHNIQUE: Frontal view of the chest was obtained. FINDINGS: The cardiac, hilar, and mediastinal contours are normal. The lungs are clear bilaterally. No pneumothorax or effusion. No focal osseous or soft tissue abnormality. XR/XR chest 1V IMPRESSION: No active pulmonary disease. Electronically signed by: Moisés Braswell MD 12/03/2024 04:32 PM EDT
--- NOTE | ~2024-11-28 | US_ITS ---
EXAMINATION: US TRIPLEX LOWER EXTREMITY, BILATERAL CLINICAL INFORMATION: Pulmonary embolism. COMPARISON: July 22, 2007 examination is not available on PACS at the time of the interpretation. TECHNIQUE: Color-flow triplex imaging with spectral analysis and compression Doppler were performed on the bilateral lower extremities. FINDINGS: The interrogated veins demonstrated normal compressibility and augmentation with the exception of the right and left femoral and popliteal veins demonstrated an old nonocclusive thrombus. There is no Trotter's cyst. US/US venous duplex LE BI IMPRESSION: No acute deep venous thrombosis in either lower extremity. Old nonocclusive thrombus at the femoral popliteal veins, both lower extremities. Electronically signed by: Carlos Loera MD 11/28/2024 12:05 PM EDT
[2024-11-28 06:03] VITALS: BP 119/74; PULSE 60; RESP 18; TEMP 36.6; O2SAT 98; BMI 33.6
--- NOTE | 2024-11-28 06:14 | ECG_ITS ---
Test Reason : CHEST TIGHTNESS Blood Pressure : */* mmHG Vent. Rate : 51 BPM Atrial Rate : 51 BPM P-R Int : 170 ms QRS Dur : 80 ms QT Int : 394 ms P-R-T Axes : 50 13 32 degrees QTcB Int : 363 ms Sinus bradycardia Otherwise normal ECG When compared with ECG of 10-Aug-2024 10:21, No significant change was found Referred By: Generic ED Physician Electronically Signed By: Haroon Kaiser
--- NOTE | 2024-11-28 06:15 | PC.NURSE ---
Dr. Barfield made aware of +CTA result for PE per pt. orders placed as his recommendation. pt moved to [id number].
[2024-11-28 07:04] LABS: MANUAL DIFF FLAG NO
[2024-11-28 07:11] LABS: Hematocrit 46.8 % (42.0-52.0); Hemoglobin 15.8 g/dl (14.0-18.0); Imm Gran Abs Auto 0.02 X10*3/uL (0.00-0.03); Imm Gran Pct Auto 0.4 % (0.0-0.4); Lymphocytes Absolute Auto 2.1 X10*3/uL (1.2-4.9); Mean Corpuscular HGB Conc 33.8 g/dl (31.0-36.0); Mean Corpuscular Hemoglobin 30.0 pg (27.0-33.0); Mean Corpuscular Volume 88.8 fL (80.0-98.0); NRBC Abs Auto 0.000 X10*3/uL (0.0-0.012); NRBC Pct Auto 0.0 /100WBC (0.0-0.2); Platelet Count 170 X10*3/uL (160-400); Red Blood Count 5.27 X10*6/uL (4.60-5.80); White Blood Count 4.6 X10*3/uL (4.8-10.8)
[2024-11-28 07:13] LABS: INTERNATIONAL NORM RATIO 1.0 (0.9-1.1); Prothrombin Time 11.4 SEC (10.9-12.4)
[2024-11-28 07:25] LABS: Alanine Aminotransferase 145 U/L (0-40); Albumin Level 4.1 g/dL (3.5-5.0); Alkaline Phosphatase 44 U/L (39-117); Anion Gap 11 (12-20); Aspartate Amino Transferase 44 U/L (5-37); Blood Urea Nitrogen 17 mg/dL (9-16); Calcium 9.5 mg/dL (8.4-10.2); Carbon Dioxide 25 mmol/L (22-29); Chloride 108 mmol/L (96-108); Creatinine Clr Calc Pharmacy 95.5; Estimated Glomerular Filt Rate > 60; Magnesium 1.9 mg/dL (1.6-2.6); Potassium 4.0 mmol/L (3.3-5.1); Sodium 140 mmol/L (135-145); Total Protein 6.8 g/dL (6.5-8.0)
[2024-11-28 07:32] LABS: Troponin-I High Sensitivity 5.2 ng/L (<3.5-35.0)
--- NOTE | 2024-11-28 07:46 | ED_ITS ---
HPI - Chest Pain General Chief Complaint: Dyspnea Stated Complaint: Dyspnea Time Seen by Provider: 11/28/24 07:23 Source: patient and family Mode of arrival: ambulatory Limitations: no limitations History of Present Illness ED Provider: DR. Barfield HPI narrative: 49-year-old male with history of bilateral lower extremity DVT patient has been taking Xarelto but recently he is taking Lovenox after he developed DVT in the other lower extremity, history of JESSICA on CPAP, HLD, presented with right mid back pleuritic chest pain with movement and taking a deep breath. Patient last week was on a cruise. No fever, no chills, no chest trauma. Related Data Previous Rx's ?Medication ?Instructions ?Recorded comp.stocking,thigh,long,large #2 ea 08/19/20 ([facility] Anti-Embolism Stocking) enoxaparin 120 mg/0.8 mL 120 mg (0.8 mL) subcut Q12H #60 mL 09/24/24 subcutaneous syringe (Lovenox) bisacodyl 5 mg tablet,delayed 20 mg (4 x 5 mg) PO ONCE 1 day #4 10/05/24 release (Dulcolax (bisacodyl)) tabs polyethylene glycol 3350 17 238 g PO ONCE #238 grams 0 10/05/24 gram/dose oral powder (Miralax) metoprolol succinate 25 mg 25 mg PO DAILY #30 tabs 11/08 tablet,extended release 24 hr (Toprol XL) nitroglycerin 0.4 mg sublingual 0.4 mg sublingual Q5M PRN chest 11/22/24 tablet pain #30 tabs Allergies Allergy/AdvReac Type Severity Reaction Status Date / Time oxycodone (Percocet) AdvReac Unknown nausea Verified 11/28/24 06:08 Review of Systems 2 Review of Systems: All other systems are reviewed and are negative Constitutional: Reports as per HPI and Reports no additional constitutional complaints Eyes: Reports as per HPI and Reports no additional eye complaints Reports system reviewed and no additional complaints, except as documented Cardiovascular: Reports as per HPI and Reports no additional cardiovascular complaints Respiratory: Reports as per HPI and Reports no additional respiratory complaints Gastrointestinal: Reports as per HPI and Reports no additional gastrointestinal complaints Genitourinary: Reports no additional female genitourinary complaints Musculoskeletal: Reports no additional musculoskeletal complaints Skin/Breast: Reports system reviewed and no additional complaints, except as docu Psychiatric: Reports no additional psychiatric complaints Endocrine: Reports no additional endocrine complaints Hematologic/Lymphatic: Reports no additional hematologic/lymphatic complaints Allergic/Immunologic: Reports no additional allergic/immunologic complaints Reports system reviewed and no additional complaints, except as documented and Reports Abnormal speech present [facility] Past Medical History Medical History Heartburn Colon cancer screening Neck pain Nocturnal hypoxemia Obesity (BMI 30-39.9) History of renal failure Hypercholesteremia History of DVT (deep vein thrombosis) JESSICA (obstructive sleep apnea) Surgical History History of hip surgery H/O knee surgery History of back surgery H/O kidney removal Family History Family History Mother Essential hypertension Father CAD (coronary artery disease) Maternal Grandfather Cancer Social History Social History Housing: House Alcohol intake: current Alcohol intake frequency: holidays/special occasions only Alcohol type: beer Patient Tobacco Use Status: Never used Tobacco e-Cigarette/Vaping Use: Never Used Second Hand Smoke Exposure: No Advance Directives: No Advance Directives Information Provided: Yes Do you have a plan to hurt others: No Plan service: No Current occupational status: employed Current occupational exposures/hazards: No Cognitive needs: No Hearing needs: No Vision needs: Yes Physical Exam 2 Vital Signs: Vital Signs: Last Vital Signs Temp 97.9 F 11/28/24 06:03 Pulse 60 11/28/24 06:03 Resp 18 11/28/24 06:03 BP 119/74 11/28/24 06:03 Pulse Ox 98 11/28/24 06:03 O2 Del Method Room Air 11/28/24 06:03 BMI result Body Mass Index 33.7 Vital signs have been reviewed and appear to be correct. Blood pressure elevated. Heart rate normal. Respiratory rate normal. Temperature normal. Oxygen saturation normal. Appearance: Alert. Oriented X3. No acute distress. Head: Normal external exam. Normocephalic. Atraumatic. No Newman signs noted. No raccoon eyes noted Eyes: PERRLA. EOMI. Conjunctiva and sclera normal. Eyelids normal. ENT: TM's Normal. Pharynx normal. Uvula midline. Moist mucous membranes. No trismus noted. No drooling noted. No muffled voice noted. Neck: Normal inspection. Neck supple. FROM. No adenopathy. Thyroid Normal. No meningeal signs. No neck mass noted. CVS: Normal heart rate and rhythm. Heart sound normal. No murmurs noted. Pulses normal throughout. Respiratory: No respiratory distress. Painless inspiration. Breath sounds normal. No wheezes/rales/rhonchi noted. Chest nontender. No accessory muscle usage noted or decreased air movement noted. Abdomen: Soft and nontender. Bowel sounds normal in all 4 quadrants. No distention noted. No organomegaly noted. No visible injury noted. Back: No CVA tenderness. Full range of motion noted. Skin: Skin warm and dry. Normal skin color. Normal skin turgor. No rashes/lesions/lacerations noted. Extremities: No lower extremity edema. Extremities exhibit normal range of motion. Extremities nontender. Neuro: Oriented X 3. Cranial nerve exam: II-XII are grossly intact No motor deficit. No sensory deficit. Reflexes normal. Course Reevaluation(s) Reevaluation #1: History of complicated DVT change from Eliquis to Lovenox now with pleuritic chest pain CTA reveals suspicion for right pulmonary embolism will start on heparin, admit, get vascular surgery consultation. Patient otherwise hemodynamically stable. Time: 08:13 Medical Decision Making Differential Diagnosis Differential Diagnoses: The differential diagnosis associated with the presentation includes (Pulmonary embolism, pneumonia, pneumothorax, pleural effusion, ACS, electrolyte derangement, severe anemia.) Admission/Observation Consideration of admission/observation: Escalation of care including admission/observation considered Consult Healthcare Provider Management of the patient was discussed with: Hospitalist (Dr. Best) Lab Data MDM Lab Attestation statement: I reviewed the patient's lab results. 11/28/24 06:58 11/28/24 06:58 Labs: Lab Results 11/28/24 Range/Units 06:58 WBC 4.6 L (4.8-10.8) X10*3/uL RBC 5.27 (4.60-5.80) X10*6/uL Hgb 15.8 (14.0-18.0) g/dl Hct 46.8 (42.0-52.0) % MCV 88.8 (80.0-98.0) fL MCH 30.0 (27.0-33.0) pg MCHC 33.8 (31.0-36.0) g/dl RDW 12.0 (11.0-16.0) % Plt Count 170 (160-400) X10*3/uL MPV 8.6 L (9.4-12.4) fL Immature Gran % (Auto) 0.4 (0.0-0.4) % Neut % (Auto) 31.9 L (45-73) % Lymph % (Auto) 45.9 H (20-40) % Wirt % (Auto) 15.6 H (2-11) % Eos % (Auto) 5.3 H (0-4) % Baso % (Auto) 0.9 (0-2) % Lymph # (Auto) 2.1 (1.2-4.9) X10*3/uL Wirt # (Auto) 0.7 (0.1-1.2) X10*3/uL Eos # (Auto) 0.2 (0.0-0.4) X10*3/uL Baso # (Auto) 0.0 (0.0-0.2) X10*3/uL Abs Immat Gran (auto) 0.02 (0.00-0.03) X10*3/uL Absolute Neuts (auto) 1.5 L (2.0-8.3) x10*3/uL Absolute Nucleated RBC 0.000 (0.0-0.012) X10*3/uL Nucleated RBC % (auto) 0.0 (0.0-0.2) /100WBC PT 11.4 D (10.9-12.4) SEC INR 1.0 (0.9-1.1) APTT 46.2 H D (26.7-34.1) SEC Sodium 140 (135-145) mmol/L Potassium 4.0 (3.3-5.1) mmol/L Chloride 108 (96-108) mmol/L Carbon Dioxide 25 (22-29) mmol/L Anion Gap 11 L (12-20) BUN 17 H (9-16) mg/dL Creatinine 1.15 (0.5-1.4) mg/dL Estim Creat Clear Calc 95.5 Estimated GFR > 60 Random Glucose 94 (60-115) mg/dL Calcium 9.5 (8.4-10.2) mg/dL Magnesium 1.9 (1.6-2.6) mg/dL Total Bilirubin 0.6 (0.0-1.0) mg/dL AST 44 H (5-37) U/L ALT 145 H (0-40) U/L Alkaline Phosphatase 44 (39-117) U/L Troponin I High Sens 5.2 (<3.5-35.0) ng/L Total Protein 6.8 (6.5-8.0) g/dL Albumin 4.1 (3.5-5.0) g/dL Independent Interpretation I performed an independent interpretation of an: CT Scan (CT of the chest:Low- attenuation in a posterior right lower lobe pulmonary artery at a branch point raises question of a pulmonary embolus.) Radiology Impression Discussion of test interpretation with radiology: I have reviewed the radiologist's reading. Critical Care Time Critical Care Time Critical Care Time: Yes Total Critical Care Time: 60 Attestation: The patient was critically ill with a high probability of imminent or life- threatening deterioration. I spent greater than 30 minutes of discontinuous time evaluating the patient, delivering critical care at the bedside, discussing evaluating data with consultants. Critical care time does not include time spent performing separately billable procedures or teaching. Time spent performing critical care was 60 minutes. Discharge Plan Discharge Clinical Impression: Pleuritic chest pain, Pulmonary embolism Patient Disposition: Admitted As Inpatient
[2024-11-28 08:21] VITALS: BMI 33.7
[2024-11-28 08:39] LABS: Partial Thromboplastin Time 46.2 SEC (26.7-34.1)
[2024-11-28 08:58] VITALS: BP 105/71; PULSE 54; RESP 18; TEMP 36.6; O2SAT 96
[2024-11-28] MEDS: Heparin Sodium,Porcine/1/2NS 25,000 UNIT/250 ML IV.SOLN 15.3 UNIT IVCONT (09:17)
--- NOTE | 2024-11-28 09:43 | PM.IMHP ---
History of Present Illness Date of Service: 11/29/24 Chief Complaint: chest pain and sob This is a 49-year-old male with a history of recurrent thrombosis, including left lower extremity thrombosis since 1999 and right lower extremity deep vein thrombosis in 2006. He has experienced recurrent blood clots whenever anticoagulation was discontinued. He previously developed a clot while on Xarelto, and most recently, he has been compliant with Lovenox, yet still developed a new clot. He presented with chest pain and shortness of breath. A CT scan performed on 11/27/24 confirmed a pulmonary embolism. He is currently hemodynamically stable and not hypoxic, but is experiencing significant pain. Given his history of clot formation despite compliance with both Lovenox and Xarelto, he is now being started on IV heparin. Review of Systems Review of Systems: Constitutional: No fever or chills. Cardiovascular: Chest pain, no palpitations. Respiratory: Shortness of breath, mild increased work of breathing, no cough. Gastrointestinal: No nausea or vomiting. Neurological: No focal deficits, no syncope. Yes all other systems are reviewed and are negative [facility] Medical History Heartburn Colon cancer screening Neck pain Nocturnal hypoxemia Obesity (BMI 30-39.9) History of renal failure Hypercholesteremia History of DVT (deep vein thrombosis) JESSICA (obstructive sleep apnea) Family History Mother Essential hypertension Father CAD (coronary artery disease) Maternal Grandfather Cancer Surgical History History of hip surgery H/O knee surgery History of back surgery H/O kidney removal Social History Household Members: Spouse Housing: House Do you presently have visiting nurse or other home services: No Alcohol intake: current Alcohol intake frequency: holidays/special occasions only Alcohol type: beer Patient Tobacco Use Status: Never used Tobacco e-Cigarette/Vaping Use: Never Used Second Hand Smoke Exposure: No service: No Current occupational status: employed Current occupational exposures/hazards: No Cognitive needs: No Hearing needs: No Vision needs: Yes Meds Allergies Allergy/AdvReac Type Severity Reaction Status Date / Time oxycodone (Percocet) AdvReac Unknown nausea Verified 11/28/24 06:08 Active Medications: Current Medications Acetaminophen (Acetaminophen 325 Mg Tablet) 650 mg PO Q6H PRN PRN Reason: Pain, Mild 1-3,fever,headache Last Admin: 11/28/24 09:23 Dose: 650 mg Al Hydroxide/Mg Hydroxide (Magnesium Hydrox/Alum Hydrox 30 Ml Oral.Susp) 30 ml PO Q4H PRN PRN Reason: Heartburn Calcium Carbonate (Calcium Carbonate 750 Mg Tab.Chew) 750 mg PO Q4H PRN PRN Reason: Heartburn Heparin Sodium (Porcine) (Heparin Sodium,Porcine 5,000 Unit/Ml Vial) 4,400 unit 40 unit/kg (4400 unit) IVPUSH PROTOCOL BOLUS PRN; Protocol PRN Reason: 40 unit/kg - Heparin Protocol Heparin Sodium (Porcine) (Heparin Sodium,Porcine 5,000 Unit/Ml Vial) 8,700 unit 80 unit/kg (8700 unit) IVPUSH PROTOCOL BOLUS PRN; Protocol PRN Reason: 80 unit/kg - Heparin Protocol Heparin Sodium/Sodium Chloride (Heparin Sodium,Porcine/1/2ns) 25,000 unit in 250 mls @ 0 mls/hr IVCONT .Q0M ON LICENSE OF [facility]; Protocol Last Admin: 11/28/24 09:17 Dose: 14 units/kg/hr, 15.3 mls/hr Magnesium Hydroxide (Milk Of Magnesia 30 Ml Oral.Susp) 30 ml PO DAILY PRN PRN Reason: Constipation Melatonin (Melatonin 3 Mg Tablet) 6 mg PO BEDTIME PRN PRN Reason: Insomnia Ondansetron HCl (Ondansetron Hcl 4 Mg/2 Ml Vial) 4 mg IVPUSH Q8H PRN PRN Reason: Nausea and Vomiting Polyethylene Glycol (Polyethylene Glycol 3350 17 Gm Powd.Pack) 17 gm PO DAILY PRN PRN Reason: Constipation Sodium Chloride (0.9 % Sodium Chloride Flush 3 Ml Syringe) 3 ml IVFLUSH [facility] Home Medications ?Medication ?Instructions ?Recorded ?Confirmed ?Last Taken ?Type metoprolol succinate 25 mg 25 mg PO BEDTIME 11/28/24 11/28/24 11/26/24 History tablet,extended release 24 hr (Toprol XL) Physical Exam Vital Signs and Narrative: Vital Signs: Last Vital Signs Temp 97.9 F 11/28/24 08:58 Pulse 54 11/28/24 08:58 Resp 18 11/28/24 08:58 BP 105/71 11/28/24 08:58 Pulse Ox 96 11/28/24 08:58 O2 Del Method Room Air 11/28/24 08:58 BMI result Body Mass Index 33.7 Const: Other: Vital Signs: Stable, afebrile, normotensive, not hypoxic General: Mild increased work of breathing, in pain Cardiovascular: Regular rate and rhythm, no murmurs Respiratory: Mild increased work of breathing, clear to auscultation Extremities: No new swelling or tenderness Neurological: Alert and oriented, no focal deficits Results Labs 11/29/24 05:24 11/29/24 05:24 Labs: Laboratory Results - last 24 hr 11/28/24 06:58 MCV 88.8 MCH 30.0 MCHC 33.8 RDW 12.0 Plt Count 170 MPV 8.6 L Immature Gran % (Auto) 0.4 Neut % (Auto) 31.9 L Lymph % (Auto) 45.9 H Taney % (Auto) 15.6 H Eos % (Auto) 5.3 H Baso % (Auto) 0.9 Lymph # (Auto) 2.1 Taney # (Auto) 0.7 Eos # (Auto) 0.2 Baso # (Auto) 0.0 Abs Immat Gran (auto) 0.02 Absolute Neuts (auto) 1.5 L Absolute Nucleated RBC 0.000 Nucleated RBC % (auto) 0.0 PT 11.4 D INR 1.0 APTT 46.2 H D Anion Gap 11 L Estim Creat Clear Calc 95.5 Estimated GFR > 60 Random Glucose 94 Calcium 9.5 Magnesium 1.9 Total Bilirubin 0.6 AST 44 H ALT 145 H Alkaline Phosphatase 44 Troponin I High Sens 5.2 Total Protein 6.8 Albumin 4.1 Assessment and Plan (1) Pulmonary embolism: Status: Acute (2) DVT, bilateral lower limbs: Qualifiers: Affected thrombotic vein of extremity: unspecified vein of extremity Chronicity: chronic Qualified Code(s): I82.503 - Chronic embolism and thrombosis of unspecified deep veins of lower extremity, bilateral Status: Acute Plan This is a 49-year-old male with a history of recurrent venous thromboembolism, who developed a pulmonary embolism while compliant with Lovenox. He has previously failed Xarelto and Coumadin. He is currently hemodynamically stable and not hypoxic, but is experiencing significant pain and mild increased work of breathing. Acute pulmonary embolism The patient developed a PE while compliant with Lovenox, with a history of recurrent VTE on multiple anticoagulants. He is hemodynamically stable and not hypoxic. He will be started on IV heparin for anticoagulation, with close monitoring of coagulation parameters and clinical status. Hematology will be consulted for evaluation of probable underlying hypercoagulable state and guidance on long-term anticoagulation strategy. Recurrent VTE despite anticoagulation Given his history of recurrent thrombosis on multiple agents, further workup for hypercoagulable disorders will be initiated. Consideration for long-term or alternative anticoagulation strategies will be discussed with hematology. Pain management The patient is experiencing significant pain related to the PE. Morphine for pain Indication for Admission: The patient requires inpatient admission for management of acute pulmonary embolism, particularly given his history of recurrent VTE despite compliance with multiple anticoagulants, and currrently on Lovenox. He requires initiation of IV heparin, close monitoring for potential clinical deterioration, further evaluation for hypercoagulable states, and multidisciplinary management. Quality Stroke Does the patient have a stroke diagnosis?: No VTE Prior VTE?: Yes VTE Risk Level:: Medical - moderate - high VTE Device Contraindication: Treatment Not Indicated VTE Drug Contraindication: N/A - Med Ordered
--- NOTE | 2024-11-28 11:34 | PHA.MEDREC ---
Addendum entered by Tres Nelson PharmD 11/28/24 11:38: reviewed Original Note: Pharmacy Consult ? Medication Reconciliation Pharmacy has completed the medication reconciliation. Spoke to at bedside to confirm med list. was able to name all of patient medications.
[2024-11-28 13:27] VITALS: BP 138/79; PULSE 53; RESP 9; TEMP 36.7; O2SAT 95
[2024-11-28 14:08] VITALS: BP 146/72; PULSE 53; RESP 16; TEMP 36.5; O2SAT 97
--- NOTE | 2024-11-28 16:25 | PM.CNCAR ---
History of Present Illness History of Present Illness Date of Service: 11/28/24 Requesting physician: Jak Best Chief complaint: PE Narrative: [age] year gentleman who is presenting with chest pain. He has been getting right-sided chest pain for approximately 2 weeks. He was seen in the office and had stress testing performed recently which showed distal LAD perfusion defect. He did exercise during the stress test and did not have any dynamic EKG changes. He has been experiencing persistent discomfort which is pleuritic and he had CT scan performed today which is showing small right lower lobe PE. He has extensive history of DVT in the past. He initially had left lower extremity DVT approximately 25 years ago. Subsequently had another DVT in the right lower extremity. While being on Xarelto he had bilateral lower extremity DVT couple of months ago and at that stage after discussion with hematology was started on enoxaparin. His CT scan is suspicious for small PE and given the fact that he has pleuritic chest pain also points towards small sized PE which reached the subpleural area and is causing some pleuritic pain. [facility] Past Medical History Medical History Heartburn Colon cancer screening Neck pain Nocturnal hypoxemia Obesity (BMI 30-39.9) History of renal failure Hypercholesteremia History of DVT (deep vein thrombosis) JESSICA (obstructive sleep apnea) Family History Family History Mother Essential hypertension Father CAD (coronary artery disease) Maternal Grandfather Cancer Surgical History Surgical History History of hip surgery H/O knee surgery History of back surgery H/O kidney removal Social History Social History Household Members: Spouse Housing: House Do you presently have visiting nurse or other home services: No Alcohol intake: current Alcohol intake frequency: holidays/special occasions only Alcohol type: beer Patient Tobacco Use Status: Never used Tobacco e-Cigarette/Vaping Use: Never Used Second Hand Smoke Exposure: No service: No Current occupational status: employed Current occupational exposures/hazards: No Cognitive needs: No Hearing needs: No Vision needs: Yes Meds Allergies Allergy/AdvReac Type Severity Reaction Status Date / Time oxycodone (Percocet) AdvReac Unknown nausea Verified 11/28/24 06:08 Active Medications: Current Medications Acetaminophen (Acetaminophen 325 Mg Tablet) 650 mg PO Q6H PRN PRN Reason: Pain, Mild 1-3,fever,headache Last Admin: 11/28/24 09:23 Dose: 650 mg Al Hydroxide/Mg Hydroxide (Magnesium Hydrox/Alum Hydrox 30 Ml Oral.Susp) 30 ml PO Q4H PRN PRN Reason: Heartburn Calcium Carbonate (Calcium Carbonate 750 Mg Tab.Chew) 750 mg PO Q4H PRN PRN Reason: Heartburn Heparin Sodium (Porcine) (Heparin Sodium,Porcine 5,000 Unit/Ml Vial) 4,400 unit 40 unit/kg (4400 unit) IVPUSH PROTOCOL BOLUS PRN; Protocol PRN Reason: 40 unit/kg - Heparin Protocol Heparin Sodium (Porcine) (Heparin Sodium,Porcine 5,000 Unit/Ml Vial) 8,700 unit 80 unit/kg (8700 unit) IVPUSH PROTOCOL BOLUS PRN; Protocol PRN Reason: 80 unit/kg - Heparin Protocol Heparin Sodium/Sodium Chloride (Heparin Sodium,Porcine/1/2ns) 25,000 unit in 250 mls @ 0 mls/hr IVCONT .Q0M [facility]; Protocol Last Titration: 11/28/24 13:57 Dose: 14 units/kg/hr, 15.3 mls/hr Magnesium Hydroxide (Milk Of Magnesia 30 Ml Oral.Susp) 30 ml PO DAILY PRN PRN Reason: Constipation Melatonin (Melatonin 3 Mg Tablet) 6 mg PO BEDTIME PRN PRN Reason: Insomnia Morphine Sulfate (Morphine Sulfate 4 Mg/Ml Cartridge) 2 mg IVPUSH Q6H PRN; Protocol PRN Reason: Pain, Severe (Pain Scale 7-10) Last Admin: 11/28/24 16:09 Dose: 2 mg Ondansetron HCl (Ondansetron Hcl 4 Mg/2 Ml Vial) 4 mg IVPUSH Q8H PRN PRN Reason: Nausea and Vomiting Polyethylene Glycol (Polyethylene Glycol 3350 17 Gm Powd.Pack) 17 gm PO DAILY PRN PRN Reason: Constipation Sodium Chloride (0.9 % Sodium Chloride Flush 3 Ml Syringe) 3 ml IVFLUSH [facility] Last Admin: 11/28/24 16:11 Dose: Not Given Home Medications ?Medication ?Instructions ?Recorded ?Confirmed ?Last Taken ?Type metoprolol succinate 25 mg 25 mg PO BEDTIME 11/28/24 11/28/24 11/26/24 History tablet,extended release 24 hr (Toprol XL) Physical Exam Vital Signs: Vital Signs: Last Vital Signs Temp 97.7 F 11/28/24 14:08 Pulse 53 11/28/24 14:08 Resp 16 11/28/24 14:08 BP 146/72 H 11/28/24 14:08 Pulse Ox 97 11/28/24 14:08 O2 Del Method Room Air 11/28/24 14:08 BMI result Body Mass Index 33.7 GENERAL APPEARANCE: in no acute distress, pleasant. NECK: no carotid bruit, no jugular venous distention. SKIN: no suspicious lesions, warm and dry. HEART: no murmurs, regular rate and rhythm. LUNGS: clear to auscultation bilaterally. ABDOMEN: soft, nontender. EXTREMITIES: no edema. PERIPHERAL PULSES: equal. NEUROLOGIC: No gross deficits, AAO X 3 Objective Labs and Meds 11/28/24 06:58 11/28/24 06:58 Lab results: Laboratory Results - last 24 hr 11/28/24 06:58 WBC 4.6 L RBC 5.27 Hgb 15.8 Hct 46.8 MCV 88.8 MCH 30.0 MCHC 33.8 RDW 12.0 Plt Count 170 MPV 8.6 L Immature Gran % (Auto) 0.4 Neut % (Auto) 31.9 L Lymph % (Auto) 45.9 H [place] % (Auto) 15.6 H Eos % (Auto) 5.3 H Baso % (Auto) 0.9 Lymph # (Auto) 2.1 [place] # (Auto) 0.7 Eos # (Auto) 0.2 Baso # (Auto) 0.0 Abs Immat Gran (auto) 0.02 Absolute Neuts (auto) 1.5 L Absolute Nucleated RBC 0.000 Nucleated RBC % (auto) 0.0 PT 11.4 D INR 1.0 APTT 46.2 H D Sodium 140 Potassium 4.0 Chloride 108 Carbon Dioxide 25 Anion Gap 11 L BUN 17 H Creatinine 1.15 Estim Creat Clear Calc 95.5 Estimated GFR > 60 Random Glucose 94 Calcium 9.5 Magnesium 1.9 Total Bilirubin 0.6 AST 44 H ALT 145 H Alkaline Phosphatase 44 Troponin I High Sens 5.2 Total Protein 6.8 Albumin 4.1 Imaging Radiologist's impression: Impressions Venous Duplex 11/28/24 11:09 IMPRESSION: No acute deep venous thrombosis in either lower extremity. Old nonocclusive thrombus at the femoral popliteal veins, both lower extremities. Electronically signed by: Carlos Loera MD 11/28/2024 12:05 PM EDT RP Assessment and Plan (1) Chest pain: Status: Acute (2) Pulmonary embolism: Status: Acute Plan [age] year gentleman with chest pain and abnormal nuclear perfusion stress test. He also has significant history of thromboembolism and currently has PE by CT pulmonary angiogram. He has extensive history of DVT in the past and while being on Xarelto he had bilateral lower extremity DVTs which led to changed to enoxaparin. I think stopping any anticoagulation to do diagnostic angiography to explain the stress test currently is not the right thing to do. I think we should wait and do this in at least 1 month's time. He has been following with Hematology and by his report he was told that he may have some genetic predisposition for thromboembolism. There is some discussion about placing an IVC filter in him. The concern is that if he has genetic issues and already has thromboembolism happening on anticoagulation-it may be risky to place a filter as it may thrombose and may cause IVC thrombosis in that case which has been reported before. Continue enoxaparin without interruption. Thank you for allowing me to participate in the care of your patient. Please feel free to contact me if you have any questions. Procedures Date of Service Date of Service: 11/28/24
[2024-11-28 16:50] LABS: PTT Heparin Drip > 200.0 SEC (53-77.9)
--- NOTE | 2024-11-28 18:12 | PC.NURSE ---
PTT- HD returned high ay >200. Heparin held per protocol at 1650 and stat PTT-HD placed for 1750. Will await heparin protocol and adjust as needed. Pt a/ox4 and made aware. Advised to notifiy staff immediately for any bleeding
[2024-11-28 19:27] LABS: PTT Heparin Drip 129.0 SEC (53-77.9)
[2024-11-28 20:12] LABS: PTT Heparin Drip 64.5 SEC (53-77.9)
[2024-11-28 23:35] VITALS: BP 119/75; PULSE 62; RESP 18; TEMP 36.8; O2SAT 93
[2024-11-29] VITALS (16 sets, daily range): BP systolic 109–143; BP diastolic 60–81; PULSE 51–66; RESP 12–24; TEMP 36.1–36.7; O2SAT 94–100
--- NOTE | 2024-11-29 | ECG_ITS ---
Test Reason : chest pain Blood Pressure : */* mmHG Vent. Rate : 52 BPM Atrial Rate : 52 BPM P-R Int : 182 ms QRS Dur : 86 ms QT Int : 412 ms P-R-T Axes : 58 15 42 degrees QTcB Int : 383 ms Sinus bradycardia Otherwise normal ECG When compared with ECG of 28-Nov-2024 06:19, No significant change was found Referred By: Elizabeth Ogden Electronically Signed By: Haroon Kaiser
--- NOTE | 2024-11-29 02:32 | PC.NURSE ---
Addendum entered by Heidi Mzea RN 11/29/24 02:37: 0215 pt states dilaudid effective pain down to 5/10. Addendum entered by Heidi Meza RN 11/29/24 02:33: 0120 pt continues to have chest and back pain little relief from morphine.GISELE Ogden notified.Dilaudid 1.5mg IV ordered x1 and EKG ordered.EKG was normal. Original Note: 2346 pt c/o 9/10 chest and back pain.pt medicated with morphine 2 mg IV.
[2024-11-29 03:01] LABS: PTT Heparin Drip 88.3 SEC (53-77.9)
--- NOTE | 2024-11-29 04:42 | PM.EVENT ---
Event Note Date of Service: 11/29/24 Event Note: 0110 AM nursing reported that patient is admitted for PE and is complaining of continued chest and back pain related to a pleuritic type of chest pain. EKG was checked negative for any acute or ischemic findings. Patient was able to fall back asleep and received Dilaudid that was more effective than the morphine. Echo was negative for any pericarditis on 11/23/2024. Time Spent With Patient Time: Total time managing care of this patient today ____ minutes.
[2024-11-29 06:01] LABS: MANUAL DIFF FLAG NO
[2024-11-29 06:06] LABS: Hematocrit 49.2 % (42.0-52.0); Hemoglobin 16.4 g/dl (14.0-18.0); Imm Gran Abs Auto 0.02 X10*3/uL (0.00-0.03); Imm Gran Pct Auto 0.4 % (0.0-0.4); Lymphocytes Absolute Auto 2.9 X10*3/uL (1.2-4.9); Mean Corpuscular HGB Conc 33.3 g/dl (31.0-36.0); Mean Corpuscular Hemoglobin 29.7 pg (27.0-33.0); Mean Corpuscular Volume 89.1 fL (80.0-98.0); NRBC Abs Auto 0.000 X10*3/uL (0.0-0.012); NRBC Pct Auto 0.0 /100WBC (0.0-0.2); Platelet Count 167 X10*3/uL (160-400); Red Blood Count 5.52 X10*6/uL (4.60-5.80); White Blood Count 5.3 X10*3/uL (4.8-10.8)
[2024-11-29 06:13] LABS: INTERNATIONAL NORM RATIO 1.0 (0.9-1.1); Prothrombin Time 11.5 SEC (10.9-12.4)
[2024-11-29 06:28] LABS: Alanine Aminotransferase 157 U/L (0-40); Albumin Level 4.0 g/dL (3.5-5.0); Alkaline Phosphatase 43 U/L (39-117); Anion Gap 13 (12-20); Aspartate Amino Transferase 47 U/L (5-37); Blood Urea Nitrogen 13 mg/dL (9-16); Calcium 9.0 mg/dL (8.4-10.2); Carbon Dioxide 26 mmol/L (22-29); Chloride 105 mmol/L (96-108); Creatinine Clr Calc Pharmacy 100.9; Estimated Glomerular Filt Rate > 60; Potassium 4.0 mmol/L (3.3-5.1); Sodium 140 mmol/L (135-145); Total Protein 6.8 g/dL (6.5-8.0)
--- NOTE | 2024-11-29 09:11 | HO.PM.IMPN ---
Subjective Subjective Date of Service: 11/29/24 Interval History: Persistent Chest pain. No shortness of breath. Physical Exam Vital Signs: Vital Signs: Last Vital Signs Temp 98 F 11/29/24 06:51 Pulse 60 11/29/24 06:51 Resp 17 11/29/24 06:51 BP 117/64 11/29/24 06:51 Pulse Ox 99 11/29/24 06:51 O2 Del Method Nasal Cannula 11/29/24 06:51 O2 Flow Rate 2 11/29/24 06:51 BMI result Body Mass Index 33.7 Const: Other: General: AO X 3, no acute distress Resp: CTA bilateral CVS: S1,S2,RRR GI: +BS, NT, no distention Skin: No rash Neuro: motor grossly intact Psych: appropriate affect Objective Data Active Medications Acetaminophen (Acetaminophen 325 Mg Tablet) 650 mg PO Q6H PRN PRN Reason: Pain, Mild 1-3,fever,headache Last Admin: 11/28/24 09:23 Dose: 650 mg Documented By: TEE Al Hydroxide/Mg Hydroxide (Magnesium Hydrox/Alum Hydrox 30 Ml Oral.Susp) 30 ml PO Q4H PRN PRN Reason: Heartburn Calcium Carbonate (Calcium Carbonate 750 Mg Tab.Chew) 750 mg PO Q4H PRN PRN Reason: Heartburn Heparin Sodium (Porcine) (Heparin Sodium,Porcine 5,000 Unit/Ml Vial) 4,400 unit 40 unit/kg (4400 unit) IVPUSH PROTOCOL BOLUS PRN; Protocol PRN Reason: 40 unit/kg - Heparin Protocol Heparin Sodium (Porcine) (Heparin Sodium,Porcine 5,000 Unit/Ml Vial) 8,700 unit 80 unit/kg (8700 unit) IVPUSH PROTOCOL BOLUS PRN; Protocol PRN Reason: 80 unit/kg - Heparin Protocol Heparin Sodium/Sodium Chloride (Heparin Sodium,Porcine/1/2ns) 25,000 unit in 250 mls @ 0 mls/hr IVCONT .Q0M [facility]; Protocol Last Titration: 11/29/24 03:33 Dose: 8 units/kg/hr, 8.74 mls/hr Documented By: ELISEO Co-signed By: JUSTIN Magnesium Hydroxide (Milk Of Magnesia 30 Ml Oral.Susp) 30 ml PO DAILY PRN PRN Reason: Constipation Melatonin (Melatonin 3 Mg Tablet) 6 mg PO BEDTIME PRN PRN Reason: Insomnia Morphine Sulfate (Morphine Sulfate 4 Mg/Ml Cartridge) 2 mg IVPUSH Q6H PRN; Protocol PRN Reason: Pain, Severe (Pain Scale 7-10) Last Admin: 11/28/24 23:46 Dose: 2 mg Documented By: ELISEO Ondansetron HCl (Ondansetron Hcl 4 Mg/2 Ml Vial) 4 mg IVPUSH Q8H PRN PRN Reason: Nausea and Vomiting Polyethylene Glycol (Polyethylene Glycol 3350 17 Gm Powd.Pack) 17 gm PO DAILY PRN PRN Reason: Constipation Sodium Chloride (0.9 % Sodium Chloride Flush 3 Ml Syringe) 3 ml IVFLUSH QSHIFT [facility] Last Admin: 11/29/24 07:31 Dose: Not Given Documented By: SHAHANA Non-Admin Reason: IV Running Labs 11/29/24 05:24 11/29/24 05:24 Labs: Laboratory Results - last 24 hr 11/28/24 11/28/24 11/28/24 15:45 18:08 18:10 MCV MCH MCHC RDW Plt Count MPV Immature Gran % (Auto) Neut % (Auto) Lymph % (Auto) [place] % (Auto) Eos % (Auto) Baso % (Auto) Lymph # (Auto) [place] # (Auto) Eos # (Auto) Baso # (Auto) Abs Immat Gran (auto) Absolute Neuts (auto) Absolute Nucleated RBC Nucleated RBC % (auto) Hold Purple Top SEE NOTE PT INR aPTT Heparin Protocol > 200.0 H* 129.0 H* D Anion Gap Estim Creat Clear Calc Estimated GFR Random Glucose Calcium Total Bilirubin AST ALT Alkaline Phosphatase Total Protein Albumin 11/28/24 11/29/24 11/29/24 19:57 02:42 05:24 MCV 89.1 MCH 29.7 MCHC 33.3 RDW 12.0 Plt Count 167 MPV 8.7 L Immature Gran % (Auto) 0.4 Neut % (Auto) 28.0 L Lymph % (Auto) 54.0 H [place] % (Auto) 12.1 H Eos % (Auto) 4.7 H Baso % (Auto) 0.8 Lymph # (Auto) 2.9 [place] # (Auto) 0.6 Eos # (Auto) 0.3 Baso # (Auto) 0.0 Abs Immat Gran (auto) 0.02 Absolute Neuts (auto) 1.5 L Absolute Nucleated RBC 0.000 Nucleated RBC % (auto) 0.0 Hold Purple Top PT 11.5 INR 1.0 aPTT Heparin Protocol 64.5 D 88.3 H D Anion Gap 13 Estim Creat Clear Calc 100.9 Estimated GFR > 60 Random Glucose 101 Calcium 9.0 Total Bilirubin 0.4 AST 47 H ALT 157 H Alkaline Phosphatase 43 Total Protein 6.8 Albumin 4.0 Assessment and Plan (1) DVT, bilateral lower limbs: Status: Acute (2) Pulmonary embolism: Status: Acute Plan This is a 49-year-old male with a history of recurrent venous thromboembolism, who developed a pulmonary embolism while compliant with Lovenox. He has previously failed Xarelto and Coumadin. He is currently hemodynamically stable and not hypoxic, but is experiencing significant pain and mild increased work of breathing. Acute pulmonary embolism The patient developed a PE while compliant with Lovenox, with a history of recurrent VTE on multiple anticoagulants. He is hemodynamically stable and not hypoxic. US of the legs show old clot no new clots continue IV heparin Hematology consultation There is a plan for IVC filter today Recurrent VTE despite anticoagulation Given his history of recurrent thrombosis on multiple agents, further workup for hypercoagulable disorders will be initiated. Consideration for long-term or alternative anticoagulation strategies will be discussed with hematology. Pain management: he is experiencing significant pain related to the PE. Tylenol for mild pain, Morphine for severe pain Need for inpatient: The patient requires inpatient admission for management of acute pulmonary embolism, particularly given his history of recurrent VTE despite compliance with multiple anticoagulants, and currrently on Lovenox. He requires initiation of IV heparin, close monitoring for potential clinical deterioration, further evaluation for hypercoagulable states, and multidisciplinary management. Quality Stroke Does the patient have a stroke diagnosis?: No VTE Prior VTE?: Yes VTE Risk Level:: Medical - moderate - high VTE Device Contraindication: Treatment Not Indicated VTE Drug Contraindication: N/A - Med Ordered
[2024-11-29 09:50] LABS: PTT Heparin Drip 71.0 SEC (53-77.9)
[2024-11-29] MEDS: Heparin Sodium,Porcine/1/2NS 25,000 UNIT/250 ML IV.SOLN 8.74 UNIT IVCONT (10:21)
--- NOTE | 2024-11-29 10:52 | P.CONGS_ITS ---
History of Present Illness Consult details Consult date: 11/29/24 Reason for consult: other (PE) Narrative: Very complex case of a 49-year-old gentleman who originally presented of shortness of breath. Upon workup there was concern of a pulmonary embolism. Upon reviewing his chart he has a very long history of recurrent VTE despite compliance with multiple different anticoagulants. He is currently on Lovenox. He has been admitted with IV heparin therapy. He now presents for evaluation for potential IVC filter Review of Systems 2 Review of Systems: Yes all other systems are reviewed and are negative Constitutional: Constitutional: Reports no additional constitutional complaints ENT: Reports Normal hearing present Cardiovascular: Cardiovascular: Denies chest pain, Denies chest pain at rest, Denies chest pain with activity and Denies pedal edema Respiratory: Respiratory: Denies cough Gastrointestinal: Gastrointestinal: Denies abdominal pain Musculoskeletal: Musculoskeletal: Denies abnormal gait, Denies muscle cramps and Denies radiating pain into limb Integumentary/Breasts: Skin/Breast: Denies skin ulcer and Denies wounds Neurologic: Reports Normal hearing present and Denies abnormal gait Psychiatric: Psychiatric: Reports no additional psychiatric complaints PMFSH Past Medical History Medical History Heartburn Colon cancer screening Neck pain Nocturnal hypoxemia Obesity (BMI 30-39.9) History of renal failure Hypercholesteremia History of DVT (deep vein thrombosis) JESSICA (obstructive sleep apnea) Family History Family History Mother Essential hypertension Father CAD (coronary artery disease) Maternal Grandfather Cancer Surgical History Surgical History History of hip surgery H/O knee surgery History of back surgery H/O kidney removal Social History Social History Household Members: Spouse Housing: House Do you presently have visiting nurse or other home services: No Alcohol intake: current Alcohol intake frequency: holidays/special occasions only Alcohol type: beer Patient Tobacco Use Status: Never used Tobacco e-Cigarette/Vaping Use: Never Used Second Hand Smoke Exposure: No service: No Current occupational status: employed Current occupational exposures/hazards: No Cognitive needs: No Hearing needs: No Vision needs: Yes Meds Allergies Allergy/AdvReac Type Severity Reaction Status Date / Time oxycodone (Percocet) AdvReac Unknown nausea Verified 11/28/24 06:08 Active Medications: Current Medications Acetaminophen (Acetaminophen 325 Mg Tablet) 650 mg PO Q6H PRN PRN Reason: Pain, Mild 1-3,fever,headache Last Admin: 11/28/24 09:23 Dose: 650 mg Al Hydroxide/Mg Hydroxide (Magnesium Hydrox/Alum Hydrox 30 Ml Oral.Susp) 30 ml PO Q4H PRN PRN Reason: Heartburn Calcium Carbonate (Calcium Carbonate 750 Mg Tab.Chew) 750 mg PO Q4H PRN PRN Reason: Heartburn Heparin Sodium (Porcine) (Heparin Sodium,Porcine 5,000 Unit/Ml Vial) 4,400 unit 40 unit/kg (4400 unit) IVPUSH PROTOCOL BOLUS PRN; Protocol PRN Reason: 40 unit/kg - Heparin Protocol Heparin Sodium (Porcine) (Heparin Sodium,Porcine 5,000 Unit/Ml Vial) 8,700 unit 80 unit/kg (8700 unit) IVPUSH PROTOCOL BOLUS PRN; Protocol PRN Reason: 80 unit/kg - Heparin Protocol Heparin Sodium/Sodium Chloride (Heparin Sodium,Porcine/1/2ns) 25,000 unit in 250 mls @ 0 mls/hr IVCONT .Q0M [facility]; Protocol Last Admin: 11/29/24 10:21 Dose: 8 units/kg/hr, 8.74 mls/hr Magnesium Hydroxide (Milk Of Magnesia 30 Ml Oral.Susp) 30 ml PO DAILY PRN PRN Reason: Constipation Melatonin (Melatonin 3 Mg Tablet) 6 mg PO BEDTIME PRN PRN Reason: Insomnia Morphine Sulfate (Morphine Sulfate 4 Mg/Ml Cartridge) 2 mg IVPUSH Q6H PRN; Protocol PRN Reason: Pain, Severe (Pain Scale 7-10) Last Admin: 11/28/24 23:46 Dose: 2 mg Ondansetron HCl (Ondansetron Hcl 4 Mg/2 Ml Vial) 4 mg IVPUSH Q8H PRN PRN Reason: Nausea and Vomiting Polyethylene Glycol (Polyethylene Glycol 3350 17 Gm Powd.Pack) 17 gm PO DAILY PRN PRN Reason: Constipation Sodium Chloride (0.9 % Sodium Chloride Flush 3 Ml Syringe) 3 ml IVFLUSH [facility] Last Admin: 11/29/24 07:31 Dose: Not Given Home Medications ?Medication ?Instructions ?Recorded ?Confirmed ?Last Taken ?Type metoprolol succinate 25 mg 25 mg PO BEDTIME 11/28/24 1 11/26/24 History tablet,extended release 24 hr (Toprol XL) Physical Exam 2 Vital Signs: Vital Signs: Last Vital Signs Temp 98 F 11/29/24 06:51 Pulse 60 11/29/24 06:51 Resp 17 11/29/24 06:51 BP 117/64 11/29/24 06:51 Pulse Ox 99 11/29/24 06:51 O2 Del Method Nasal Cannula 11/29/24 06:51 O2 Flow Rate 2 11/29/24 06:51 BMI result Body Mass Index 33.7 Const: General: cooperative, healthy appearing and comfortable O rientation/consciousness: oriented to person, oriented to place and oriented to time HEENT: Head: Yes normal to inspection Neck: Neck: Yes normal visual inspection Carotids: no bruits Chest: Chest palpation & inspection: normal inspection of the chest Resp: Effort & Inspection: normal respiratory effort and able to speak in complete sentences Auscultation: clear to auscultation bilaterally, no crackles, no rales, no rhonchi and no wheezes Cardio: Rate: regular rate Rhythm: regular rhythm Heart sounds: S1 normal heart sound present and S2 normal heart sound present Bruits: no carotid bruits Peripheral pulses: Peripheral pulses 2+ throughout GI: Inspection: Yes normal to inspection Skin: Wounds: no wounds Hair: normal Neuro: General: oriented to person, oriented to place and oriented to time Cranial nerves: Yes CN's II-XII intact bilaterally and Yes Normal hearing present Cognition (Neuro): normal cognition Motor exam (neuro): 5/5 motor strength present throughout Extrem: Other: venous exam: +1 edema General: No clubbing, No cyanosis and No edema Psych: Appearance: grossly normal Mental Status: mental status grossly normal Speech and movement: Normal speech and movement present Results Labs 11/29/24 05:24 11/29/24 05:24 Labs: Abnormal lab results 11/28/24 11/28/24 11/29/24 Range/Units 15:45 18:08 02:42 MPV (9.4-12.4) fL Neut % (Auto) (45-73) % Lymph % (Auto) (20-40) % [place] % (Auto) (2-11) % Eos % (Auto) (0-4) % Absolute Neuts (auto) (2.0-8.3) x10*3/uL aPTT Heparin Protocol > 200.0 H* 129.0 H* D 88.3 H D (53-77.9) SEC AST (5-37) U/L ALT (0-40) U/L 11/29/24 Range/Units 05:24 MPV 8.7 L (9.4-12.4) fL Neut % (Auto) 28.0 L (45-73) % Lymph % (Auto) 54.0 H (20-40) % [place] % (Auto) 12.1 H (2-11) % Eos % (Auto) 4.7 H (0-4) % Absolute Neuts (auto) 1.5 L (2.0-8.3) x10*3/uL aPTT Heparin Protocol (53-77.9) SEC AST 47 H (5-37) U/L ALT 157 H (0-40) U/L Short CBC 11/29/24 Range/Units 05:24 WBC 5.3 (4.8-10.8) X10*3/uL Hgb 16.4 (14.0-18.0) g/dl Hct 49.2 (42.0-52.0) % Plt Count 167 (160-400) X10*3/uL BMP 11/29/24 05:24 Sodium 140 Potassium 4.0 Chloride 105 Carbon Dioxide 26 BUN 13 Creatinine 1.09 Calcium 9.0 Liver Function 11/29/24 Range/Units 05:24 Total Bilirubin 0.4 (0.0-1.0) mg/dL AST 47 H (5-37) U/L ALT 157 H (0-40) U/L Alkaline Phosphatase 43 (39-117) U/L Albumin 4.0 (3.5-5.0) g/dL All other labs normal. Assessment and Plan (1) Pulmonary embolism: Qualifiers: Pulmonary embolism type: other Chronicity: acute Acute cor pulmonale presence: unspecified Qualified Code(s): I26.99 - Other pulmonary embolism without acute cor pulmonale Status: Acute Plan In short patient has a pulmonary embolism. I did review the study with Radiology although poor quality study there is concern of subsegmental pulmonary embolism. In addition this patient has had recurrent venous thromboembolisms despite multiple anticoagulants. The concern here is the use of recurrent pulmonary embolism. Risks benefits complications of the procedure were discussed in detail with the patient he agreed and would like to move forward. He is scheduled for later today. Thank you for allowing us to assist in his care Procedures Date of Service Date of Service: 11/29/24
--- NOTE | 2024-11-29 11:01 | PC.NURSE ---
Per Dr. Osborne Heparin gtt paused at 1102 prior to IVC filter procedure.
--- NOTE | 2024-11-29 12:43 | P.OP_ITS ---
Operative Note Operative Note Date of Service: 11/29/24 Narrative: Angiogram report from [facility] Preoperative diagnosis: Deep venous thrombosis with pulmonary embolism Postoperative diagnosis: Same Procedure: 1. Ultrasound-guided right common femoral vein access 2. Inferior vena cavogram 3. Placement of inferior vena cava filter Surgeon:Milton Osborne M.D., FACS, RPVI Fire Prevention Forester:None Anesthesia: Local with moderate conscious sedation. Total intraservice moderat e sedation time was 23 minutes. I monitored the patient's level of consciousness and physiologic status continuously throughout the procedure. Specimens:none Drains:none Estimated blood loss: Less than 10 ml Radiation dose: 34.6 mGy Implant: Bard Liss retrievable vena cava filter Indications: 49-year-old gentleman with previously diagnosed DVTs who has been on multiple medical regimens and has had increasing DVT and most recently a pulmonary embolism now presents for IVC filter placement. The patient has signed the informed consent after reviewing risks, complications, benefits, and alternatives previously discussed with the patient. The patient was given the opportunity to ask any additional questions or voice any concerns. All questions were answered to the patient's satisfaction. Procedure in detail: Patient was brought to the angiography suite prior to which a time-out was called for patient identification and site verification. Bilateral groins were prepped and draped in the standard surgical fashion. Under ultrasound guidance right common femoral vein was punctured with micro puncture needle and wire. Subsequently a precision 5 Northern Irish sheath was then placed. Bentson wire was advanced to the level of the vena cava. Vena cavogram was then undertaken through the 5 Northern Irish sheath. This was a baseline study to define the variant anatomy, caval size, location and number of renal veins, and to evaluate for ileo caval thrombus. Under direct fluoroscopic guidance we exchanged out the 5 Northern Irish sheath for the Bard Liss sheath. We brought the filter into position. This was then subsequently deployed. The inner cannula was then removed. Through the sheath a hand injection was performed to assess filter position. Once this was accomplished the sheath was then removed, and hemostasis was achieved with 10 minutes of direct compression. No immediate complications occurred and the patient was returned to the recovery suite with no complications Interpretation of films: 1. Ultrasound demonstrates appropriate femoral vein puncture. Image of which was saved. 2. There was no ileal caval thrombus noted 3. There are single renal veins bilaterally and the IVC is normal in caliber. There is no aberrant anatomy. 4. The filter was deployed appropriately and position below the lowest renal vein. Conclusion: 1. Successful placement of Bard Liss IVC filter 2. Anticoagulation status: Resume regular anticoagulation as indicated 4 hours post filter placement This note is constructed using voice recognition software. While every effort has been made to ensure accuracy, electric motor winder errors may have been included. Thank you for allowing me to participate in the care of your patient. Yours sincerely, Milton Osborne MD, FACS, R.P.V.I.
[2024-11-29 15:54] LABS: PTT Heparin Drip 55.2 SEC (53-77.9)
--- NOTE | 2024-11-29 16:16 | MHC.CM.PN ---
PT SLEEPING, CM MET WITH PTS AT BEDSIDE PT IS INDEPENDENT WITH CARE AND WORKS HE USES A CPAP AND HAS NO SERVICES SHE DOES NOT THINK HE HAS COMPLETED A HCP PCP: RYAN FORTUNE DCP: HOME VIA PRIVATE TRANSPORT
--- NOTE | 2024-11-29 16:22 | P.CNHO_ITS ---
Subjective - Subjective Chief complaint: Chest pain Patient: known to practice within the last 3 years Consult date: 11/29/24 Primary Care Provider: Xochilt Campbell MD Trouble Dispatcher Utilized?: No - Finnish Speaking HPI - Consult Narrative Reason for consult: History of recurrent DVT, ? Pulmonary embolism Narrative: Josh Langford is a 49 year old male with recurrent thrombosis dating back to 1999 involving right lower extremity. He follows Dr. Deshpande. He was switched to Lovenox in September 2024 because of recurrent left femoral vein DVT. Prior to that he was on Xarelto. He was seen by Cardiology for chest pain, CT angiogram ordered by Dr. Marcus. This was performed on 11/27/24 and was read as question of pulmonary embolism in 1 posterior branch point of the pulmonary artery. Patient got admitted and he was switched from Lovenox to unfractionated heparin. He underwent IVC filter placement today. Review of Systems - Neurologic Reports hearing normal, Denies abnormal gait PMFSH Medical History: Medical History (Last Reviewed 11/28/24 @ 07:55 by Marcell Barfield MD) Colon cancer screening Heartburn History of DVT (deep vein thrombosis) History of renal failure Hypercholesteremia Neck pain Nocturnal hypoxemia Obesity (BMI 30-39.9) JESSICA (obstructive sleep apnea) Family History: Family History (Last Reviewed 11/28/24 @ 07:55 by Marcell Barfield MD) Mother Essential hypertension Father CAD (coronary artery disease) Maternal Grandfather Cancer Surgical History: Surgical History (Last Reviewed 11/28/24 @ 07:55 by Marcell Barfield MD) H/O kidney removal H/O knee surgery History of back surgery History of hip surgery Social History: Social History (Last Reviewed 11/28/24 @ 07:55 by Marcell Barfield MD) Living Situation History: Household Members: Spouse Housing: House Are you a primary wound care technician to a significant other at home: No Do you presently have visiting nurse or other home services: No Tobacco History: Patient Tobacco Use Status: Never used Tobacco e-Cigarette/Vaping Use: Never Used Second Hand Smoke Exposure: No Occupation Assessmet: service: No Current occupational status: employed Current occupational exposures/hazards: No Home Medications and Allergies Current Medications: Current Medications Acetaminophen (Acetaminophen 325 Mg Tablet) 650 mg PO Q6H PRN PRN Reason: Pain, Mild 1-3,fever,headache Last Admin: 11/28/24 09:23 Dose: 650 mg Al Hydroxide/Mg Hydroxide (Magnesium Hydrox/Alum Hydrox 30 Ml Oral.Susp) 30 ml PO Q4H PRN PRN Reason: Heartburn Calcium Carbonate (Calcium Carbonate 750 Mg Tab.Chew) 750 mg PO Q4H PRN PRN Reason: Heartburn Heparin Sodium (Porcine) (Heparin Sodium,Porcine 5,000 Unit/Ml Vial) 4,400 unit 40 unit/kg (4400 unit) IVPUSH PROTOCOL BOLUS PRN; Protocol PRN Reason: 40 unit/kg - Heparin Protocol Heparin Sodium (Porcine) (Heparin Sodium,Porcine 5,000 Unit/Ml Vial) 8,700 unit 80 unit/kg (8700 unit) IVPUSH PROTOCOL BOLUS PRN; Protocol PRN Reason: 80 unit/kg - Heparin Protocol Hydromorphone HCl (Hydromorphone Hcl 2 Mg Tablet) 1 mg PO Q6H PRN PRN Reason: Pain, Moderate(Pain Scale 4-6) Last Admin: 11/29/24 14:18 Dose: 1 mg Heparin Sodium/Sodium Chloride (Heparin Sodium,Porcine/1/2ns) 25,000 unit in 250 mls @ 0 mls/hr IVCONT .Q0M RAINE; Protocol Last Titration: 11/29/24 16:13 Dose: 8 units/kg/hr, 8.74 mls/hr Magnesium Hydroxide (Milk Of Magnesia 30 Ml Oral.Susp) 30 ml PO DAILY PRN PRN Reason: Constipation Melatonin (Melatonin 3 Mg Tablet) 6 mg PO BEDTIME PRN PRN Reason: Insomnia Morphine Sulfate (Morphine Sulfate 4 Mg/Ml Cartridge) 2 mg IVPUSH Q6H PRN; Protocol PRN Reason: Pain, Severe (Pain Scale 7-10) Ondansetron HCl (Ondansetron Hcl 4 Mg/2 Ml Vial) 4 mg IVPUSH Q8H PRN PRN Reason: Nausea and Vomiting Polyethylene Glycol (Polyethylene Glycol 3350 17 Gm Powd.Pack) 17 gm PO DAILY PRN PRN Reason: Constipation Sodium Chloride (0.9 % Sodium Chloride Flush 3 Ml Syringe) 3 ml IVFLUSH [facility] Last Admin: 11/29/24 16:18 Dose: Not Given Home Medications ?Medication ?Instructions ?Recorded ?Confirmed ?Type metoprolol succinate 25 mg 25 mg PO BEDTIME 11/28/24 11/28/24 Histo ry tablet,extended release 24 hr (Toprol XL) Allergies Allergy/AdvReac Type Severity Reaction Status Date / Time oxycodone (Percocet) AdvReac Unknown nausea Verified 11/28/24 06:08 Physical Exam Vital signs: Vital Signs Temp 97.9 F 11/29/24 13:34 Pulse 55 11/29/24 13:34 Resp 15 11/29/24 13:34 BP 111/72 11/29/24 13:34 Pulse Ox 98 11/29/24 13:34 O2 Del Method Nasal Cannula 11/29/24 13:34 O2 Flow Rate 2 11/29/24 13:34 Intake & Output 11/28/24 11/29/24 11/29/24 18:59 06:59 18:59 Intake Total 116.28 / 592.426 476.146 / 592.426 108.849 / 108.849 Balance 116.28 / 592.426 476.146 / 592.426 108.849 / 108.849 Intake: Intake, Oral Amount 400 / 400 Intake, IV Amount 116.28 / 192.426 76.146 / 192.426 108.849 / 108.849 Heparin Sodium,Porcine/1/2NS 25 116.28 / 192.426 76.146 / 192.426 108.849 / 108.849 ,000 unit In 250 ml @ Per Protocol IVCONT .Q0M [facility] Rx#: [id number] Other: NPO Yes Lunch % Eaten 0% Dinner % Eaten 100% Evening Snack % Eaten 100 Number of Unmeasured Voids 2 Urine Bathroom Last Bowel Movement 11/27/24 Weight 109.6 kg Weight 109.6 kg - Constitutional Present: no acute distress, obese - Routine HEENT Exam Head: Present: normal inspection Eye: Present: EOMI - Routine Neck Exam Absent: lymphadenopathy - Routine Respiratory Exam Present: CTAB. Absent: wheezes - Routine Cardiovascular Exam Cardiovascular: Present: S1, S2 - Routine Extremities Exam Present: pulses intact Hem/Onc Consult Result - Labs CBC & Chem 7: 11/29/24 05:24 11/29/24 05:24 Labs: Short CBC 11/29/24 Range/Units 05:24 WBC 5.3 (4.8-10.8) X10*3/uL Hgb 16.4 (14.0-18.0) g/dl Hct 49.2 (42.0-52.0) % Plt Count 167 (160-400) X10*3/uL BMP 11/29/24 05:24 Sodium 140 Potassium 4.0 Chloride 105 Carbon Dioxide 26 BUN 13 Creatinine 1.09 Calcium 9.0 Liver Function 11/29/24 Range/Units 05:24 Total Bilirubin 0.4 (0.0-1.0) mg/dL AST 47 H (5-37) U/L ALT 157 H (0-40) U/L Alkaline Phosphatase 43 (39-117) U/L Albumin 4.0 (3.5-5.0) g/dL Assessment and Plan Patient Active problem list reviewed?: Yes (1) 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 This is a 49-year-old male with history of recurrent lower extremity DVT who was recently switched from rivaroxaban to Lovenox in September 2024. He had nonspecific diffuse chest pain. CT angiogram was read as possible pulmonary embolism. I reviewed images with Dr. Ricci. There was no visible or obvious PE. Could be an artifact. He had a repeat bilateral lower extremity venous Doppler which shows no acute clot. Old nonocclusive thrombus at the femoral/popliteal vein of both lower extremities. Recommend that he continue with Lovenox 1 milligram/kilos b.i.d. upon discharge. He was advised to follow up with Dr. Deshpande in a week or 2. Thank you. - Time Spent With Patient Time Spent with Patient (in minutes): 15
[2024-11-30 05:56] LABS: PTT Heparin Drip 60.5 SEC (53-77.9)
[2024-11-30 07:13] VITALS: BP 121/80; PULSE 68; RESP 17; TEMP 36.8; O2SAT 96
--- NOTE | 2024-11-30 07:13 | HO.PM.IMPN ---
Subjective Subjective Date of Service: 11/30/24 Physical Exam Vital Signs: Vital Signs: Last Vital Signs Temp 97.7 F 11/29/24 23:43 Pulse 53 11/29/24 23:43 Resp 18 11/29/24 23:43 BP 143/80 H 11/29/24 23:43 Pulse Ox 95 11/29/24 23:43 O2 Del Method CPAP 11/29/24 23:43 O2 Flow Rate 2 11/29/24 13:34 BMI result Body Mass Index 33.7 Objective Data Active Medications Acetaminophen (Acetaminophen 325 Mg Tablet) 650 mg PO Q6H PRN PRN Reason: Pain, Mild 1-3,fever,headache Last Admin: 11/29/24 18:09 Dose: 650 mg Documented By: SHAHANA Al Hydroxide/Mg Hydroxide (Magnesium Hydrox/Alum Hydrox 30 Ml Oral.Susp) 30 ml PO Q4H PRN PRN Reason: Heartburn Calcium Carbonate (Calcium Carbonate 750 Mg Tab.Chew) 750 mg PO Q4H PRN PRN Reason: Heartburn Heparin Sodium (Porcine) (Heparin Sodium,Porcine 5,000 Unit/Ml Vial) 4,400 unit 40 unit/kg (4400 unit) IVPUSH PROTOCOL BOLUS PRN; Protocol PRN Reason: 40 unit/kg - Heparin Protocol Heparin Sodium (Porcine) (Heparin Sodium,Porcine 5,000 Unit/Ml Vial) 8,700 unit 80 unit/kg (8700 unit) IVPUSH PROTOCOL BOLUS PRN; Protocol PRN Reason: 80 unit/kg - Heparin Protocol Hydromorphone HCl (Hydromorphone Hcl 2 Mg Tablet) 1 mg PO Q6H PRN PRN Reason: Pain, Moderate(Pain Scale 4-6) Last Admin: 11/29/24 14:18 Dose: 1 mg Documented By: SHAHANA Heparin Sodium/Sodium Chloride (Heparin Sodium,Porcine/1/2ns) 25,000 unit in 250 mls @ 0 mls/hr IVCONT .Q0M COUNTS INCLUDE 234 BEDS AT THE [facility]; Protocol Last Titration: 11/30/24 06:05 Dose: 8 units/kg/hr, 8.74 mls/hr Documented By: ELISEO Co-signed By: JUSTIN Ibuprofen (Ibuprofen 400 Mg Tablet) 400 mg PO Q8H COUNTS INCLUDE 234 BEDS AT THE [facility] Last Admin: 11/30/24 05:15 Dose: 400 mg Documented By: ELISEO Magnesium Hydroxide (Milk Of Magnesia 30 Ml Oral.Susp) 30 ml PO DAILY PRN PRN Reason: Constipation Melatonin (Melatonin 3 Mg Tablet) 6 mg PO BEDTIME PRN PRN Reason: Insomnia Morphine Sulfate (Morphine Sulfate 4 Mg/Ml Cartridge) 2 mg IVPUSH Q6H PRN; Protocol PRN Reason: Pain, Severe (Pain Scale 7-10) Ondansetron HCl (Ondansetron Hcl 4 Mg/2 Ml Vial) 4 mg IVPUSH Q8H PRN PRN Reason: Nausea and Vomiting Polyethylene Glycol (Polyethylene Glycol 3350 17 Gm Powd.Pack) 17 gm PO DAILY PRN PRN Reason: Constipation Sodium Chloride (0.9 % Sodium Chloride Flush 3 Ml Syringe) [facility] Last Admin: 11/29/24 23:23 Dose: Not Given Documented By: ELISEO Non-Admin Reason: IV Running Labs 11/29/24 05:24 11/29/24 05:24 Labs: Laboratory Results - last 24 hr 11/29/24 11/29/24 11/30/24 09:26 15:40 05:15 aPTT Heparin Protocol 71.0 55.2 D 60.5 Quality Stroke Does the patient have a stroke diagnosis?: No VTE Prior VTE?: Yes VTE Risk Level:: Medical - moderate - high VTE Device Contraindication: Treatment Not Indicated VTE Drug Contraindication: N/A - Med Ordered
[2024-11-30] MEDS: Milk of Magnesia 30 ML ORAL.SUSP PO (08:53)
[2024-11-30] MEDS: Heparin Sodium,Porcine/1/2NS 25,000 UNIT/250 ML IV.SOLN 8.74 UNIT IVCONT (11:00)
--- NOTE | 2024-11-30 11:15 | P.DS_ITS ---
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: Status: Chronic Physical Exam Vital Signs: Vital Signs: Last Vital Signs Temp 98.2 F 11/30/24 07:13 Pulse 68 11/30/24 07:13 Resp 17 11/30/24 07:13 BP 121/80 11/30/24 07:13 Pulse Ox 96 11/30/24 07:13 O2 Del Method Room Air 11/30/24 07:13 O2 Flow Rate 2 11/29/24 13:34 BMI result Body Mass Index 33.7 DS: Data Data Completed and Pending Labs on day of discharge: Laboratory Results - last 24 hr 11/29/24 11/30/24 15:40 05:15 aPTT Heparin Protocol 55.2 D 60.5 Discharge Plan Discharge Referrals: Xochilt Vides MD [Primary Care Provider, Internal Medicine] - 1 Week Discharge Medications: No Action (DME) EMS Anti-Embolism Stocking Misc Qty: 2 1RF Rx Instructions: As Directed metoprolol succinate [Toprol XL] 25 mg tablet extended release 24 hr 25 mg PO BEDTIME enoxaparin [Lovenox] 120 mg/0.8 mL Syringe 120 mg SUBCUT Q12H Qty: 60 3RF nitroglycerin 0.4 mg tablet, sublingual 0.4 mg sublingual Q5M PRN (Reason: chest pain) Qty: 30 5RF Rx Instructions: do not exceed 3 doses per episode Print Language: Cambodian
--- NOTE | 2024-11-30 11:27 | HO.VASCPN ---
Subjective Subjective Date of Service: 11/30/24 Patient reports: no new complaints and still having pain Interval history: Very complex an anxious 49-year-old gentleman for follow-up status post IVC filter placement. Unclear exactly what has occurred here whether there has been and intolerance to certain anticoagulants or an element of noncompliance. He did have a DVT with what appears to be a PE. Although study was poor quality he did demonstrate signs and symptoms of a pulmonary embolism and so the decision was made to place a filter. He underwent procedure yesterday and appears to be doing relatively well today. Physical Exam Vital Signs: Vital Signs: Last Vital Signs Temp 98.2 F 11/30/24 07:13 Pulse 68 11/30/24 07:13 Resp 17 11/30/24 07:13 BP 121/80 11/30/24 07:13 Pulse Ox 96 11/30/24 07:13 O2 Del Method Room Air 11/30/24 07:13 O2 Flow Rate 2 11/29/24 13:34 BMI result Body Mass Index 33.7 Const: General: cooperative, healthy appearing and comfortable Orientation/consciousness: oriented to person, oriented to place and oriented to time HEENT: Head: Yes normal to inspection Neck: Neck: Yes normal visual inspection Carotids: no bruits Chest: Chest palpation & inspection: normal inspection of the chest Resp: Effort & Inspection: normal respiratory effort and able to speak in complete sentences Auscultation: clear to auscultation bilaterally, no crackles, no rales, no rhonchi and no wheezes Cardio: Rate: regular rate Rhythm: regular rhythm Heart sounds: S1 normal heart sound present and S2 normal heart sound present Bruits: no carotid bruits Peripheral pulses: Peripheral pulses 2+ throughout GI: Inspection: Yes normal to inspection Skin: Other: Small groin hematoma Wounds: no wounds Hair: normal Neuro: General: oriented to person, oriented to place and oriented to time Cranial nerves: Yes CN's II-XII intact bilaterally and Yes Normal hearing present Cognition (Neuro): normal cognition Motor exam (neuro): 5/5 motor strength present throughout Extrem: Other: venous exam: No significant superficial varicosities or spider telangiectasias, minimal edema General: No clubbing, No cyanosis and No edema Psych: Appearance: grossly normal Mental Status: mental status grossly normal Speech and movement: Normal speech and movement present Progress Note: A&P Assessment and plan (1) Pulmonary embolism: Status: Acute Assessment and Plan: In short patient has had IVC filter placed. No postprocedure complications. A retrievable filter was placed should the decision be made to retrieve this in a proximally 6 months or so. Would discuss with Heme-Onc team about appropriate anticoagulation for his very complex case. In terms of his lower extremity DVTs I did review all his previous imaging no intervention indicated for those as they are chronic and small in nature. He will follow up with us on an as-needed basis. Thank you for allowing us to assist in his care. If there are any questions or concerns please do not hesitate to contact us. Time Spent With Patient Time: Total time managing care of this patient today ____ minutes. Procedures Date of Service Date of Service: 11/30/24 Quality Stroke Does the patient have a stroke diagnosis?: No VTE Prior VTE?: Yes VTE Risk Level:: Medical - moderate - high VTE Device Contraindication: Treatment Not Indicated VTE Drug Contraindication: N/A - Med Ordered
[2024-11-30 12:47] VITALS: BP 133/83; O2SAT 97
--- NOTE | 2024-11-30 13:31 | P.PNIM_ITS ---
Subjective Subjective Date of Service: 11/30/24 Interval History: Patient continues to endorse chest pain, dizziness, like an elephant on the chest. Workup thus far negative for any cardiac etiology Continue heparin drip PTOT evaluated the patient and he appears very wobbly and weak hence they are recommending short-term rehab Hence discharge planning will likely happen on Tuesday Review of Systems Review of Systems: Yes all other systems are reviewed and are negative Physical Exam 2 Exam: Exam: Appears extremely anxious Vital Signs: Vital Signs: Last Vital Signs Temp 98.2 F 11/30/24 07:13 Pulse 68 11/30/24 07:13 Resp 17 11/30/24 07:13 BP 133/83 11/30/24 12:47 Pulse Ox 97 11/30/24 12:47 O2 Del Method Room Air 11/30/24 07:13 O2 Flow Rate 2 11/29/24 13:34 BMI result Body Mass Index 33.7 Const: Other: General: AO X 3, no acute distress Resp: CTA bilateral CVS: S1,S2,RRR GI: +BS, NT, no distention Skin: No rash Neuro: motor grossly intact Psych: appropriate affect Objective Data Active Medications Acetaminophen (Acetaminophen 325 Mg Tablet) 650 mg PO Q6H PRN PRN Reason: Pain, Mild 1-3,fever,headache Last Admin: 11/29/24 18:09 Dose: 650 mg Documented By: SHAHANA Al Hydroxide/Mg Hydroxide (Magnesium Hydrox/Alum Hydrox 30 Ml Oral.Susp) 30 ml PO Q4H PRN PRN Reason: Heartburn Calcium Carbonate (Calcium Carbonate 750 Mg Tab.Chew) 750 mg PO Q4H PRN PRN Reason: Heartburn Heparin Sodium (Porcine) (Heparin Sodium,Porcine 5,000 Unit/Ml Vial) 4,400 unit 40 unit/kg (4400 unit) IVPUSH PROTOCOL BOLUS PRN; Protocol PRN Reason: 40 unit/kg - Heparin Protocol Heparin Sodium (Porcine) (Heparin Sodium,Porcine 5,000 Unit/Ml Vial) 8,700 unit 80 unit/kg (8700 unit) IVPUSH PROTOCOL BOLUS PRN; Protocol PRN Reason: 80 unit/kg - Heparin Protocol Hydromorphone HCl (Hydromorphone Hcl 2 Mg Tablet) 1 mg PO Q6H PRN PRN Reason: Pain, Moderate(Pain Scale 4-6) Last Admin: 11/30/24 12:27 Dose: 1 mg Documented By: SHAHANA Heparin Sodium/Sodium Chloride (Heparin Sodium,Porcine/1/2ns) 25,000 unit in 250 mls @ 0 mls/hr IVCONT .Q0M [facility]; Protocol Last Admin: 11/30/24 11:00 Dose: 8 units/kg/hr, 8.74 mls/hr Documented By: SHAHANA Co-signed By: KEVIN Ibuprofen (Ibuprofen 400 Mg Tablet) 400 mg PO Q8H [facility] Last Admin: 11/30/24 12:27 Dose: 400 mg Documented By: SHAHANA Magnesium Hydroxide (Milk Of Magnesia 30 Ml Oral.Susp) 30 ml PO DAILY PRN PRN Reason: Constipation Last Admin: 11/30/24 08:53 Dose: 30 ml Documented By: SHAHANA Melatonin (Melatonin 3 Mg Tablet) 6 mg PO BEDTIME PRN PRN Reason: Insomnia Morphine Sulfate (Morphine Sulfate 4 Mg/Ml Cartridge) 2 mg IVPUSH Q6H PRN; Protocol PRN Reason: Pain, Severe (Pain Scale 7-10) Last Admin: 11/30/24 07:17 Dose: 2 mg Documented By: SHAHANA Ondansetron HCl (Ondansetron Hcl 4 Mg/2 Ml Vial) 4 mg IVPUSH Q8H PRN PRN Reason: Nausea and Vomiting Polyethylene Glycol (Polyethylene Glycol 3350 17 Gm Powd.Pack) 17 gm PO DAILY PRN PRN Reason: Constipation Sodium Chloride (0.9 % Sodium Chloride Flush 3 Ml Syringe) [facility] Last Admin: 11/30/24 08:36 Dose: Not Given Documented By: SHAHANA Non-Admin Reason: IV Running Labs 11/29/24 05:24 11/29/24 05:24 Labs: Laboratory Results - last 24 hr 11/29/24 11/30/24 15:40 05:15 aPTT Heparin Protocol 55.2 D 60.5 Assessment and Plan (1) DVT, bilateral lower limbs: Status: Acute (2) Pulmonary embolism: Status: Acute Plan This is a 49-year-old male with a history of recurrent venous thromboembolism, who developed a pulmonary embolism while compliant with Lovenox. He has previously failed Xarelto and Coumadin. He is currently hemodynamically stable and not hypoxic, but is experiencing significant pain and mild increased work of breathing. Acute pulmonary embolism, likely failed oral Xarelto. Hemodynamically stable-on heparin drip He underwent IVC filter placement on 11/29/2024 however it does prothrombotic Likely significant peripheral pleural pain-pulmonary hygiene and pain control The patient developed a PE while stated compliancy on Lovenox, with a history of recurrent VTE on multiple anticoagulants. He is hemodynamically stable and not hypoxic. US of the legs show old clot no new clots continue IV heparin Hematology consultation -continue heparin, at the time of discharge, can continue Lovenox Recurrent VTE despite anticoagulation Given his history of recurrent thrombosis on multiple agents, further workup for hypercoagulable disorders will be initiated. Consideration for long-term or alternative anticoagulation strategies will be discussed with hematology. Pain management: he is experiencing significant pain related to the PE. Tylenol for mild pain, Morphine for severe pain Need for inpatient: The patient requires inpatient admission for management of acute pulmonary embolism, particularly given his history of recurrent VTE despite compliance with multiple anticoagulants, and currrently on Lovenox. He requires initiation of IV heparin, close monitoring for potential clinical deterioration, further evaluation for hypercoagulable states, and multidisciplinary management. Continues to complain of severe chest pain-like an elephant on the chest- troponin, EKG unremarkable. Patient is on appropriate therapy in terms of anticoagulation heparin drip. Hematology, vascular surgery, PTOT consulted and we will continue management. Patient states he is very uncomfortable despite appropriate management. He does not feel like he is ready for discharge hence we are continuing to keep him inpatient and need to re-evaluate PTOT and discharge recommendations. This note is constructed using voice recognition software. While every effort has been made to ensure accuracy, marine electrician helper errors may have been included. Quality Stroke Does the patient have a stroke diagnosis?: No VTE Prior VTE?: Yes VTE Risk Level:: Medical - moderate - high VTE Device Contraindication: Treatment Not Indicated VTE Drug Contraindication: N/A - Med Ordered
--- NOTE | 2024-11-30 15:41 | MHC.CM.PN ---
CM MET WITH PT AND AT BEDSIDE THEY ARE AWARE PT HAS RECOMMENDED STR THEY ARE WILLING TO CONSIDER IT PENDING BED OFFERS BROAD REFERRAL MADE BASED ON INSURANCE CONTRACTS
[2024-11-30 15:52] VITALS: BP 118/68; PULSE 61; RESP 19; TEMP 36.2; O2SAT 95
[2024-11-30 23:39] VITALS: BP 127/81; PULSE 51; RESP 16; TEMP 36.1; O2SAT 95
[2024-12-01 05:56] LABS: MANUAL DIFF FLAG NO
[2024-12-01 06:17] LABS: Hematocrit 48.8 % (42.0-52.0); Hemoglobin 16.5 g/dl (14.0-18.0); Imm Gran Abs Auto 0.02 X10*3/uL (0.00-0.03); Imm Gran Pct Auto 0.4 % (0.0-0.4); Lymphocytes Absolute Auto 2.9 X10*3/uL (1.2-4.9); Mean Corpuscular HGB Conc 33.8 g/dl (31.0-36.0); Mean Corpuscular Hemoglobin 29.9 pg (27.0-33.0); Mean Corpuscular Volume 88.4 fL (80.0-98.0); NRBC Abs Auto 0.000 X10*3/uL (0.0-0.012); NRBC Pct Auto 0.0 /100WBC (0.0-0.2); Platelet Count 167 X10*3/uL (160-400); Red Blood Count 5.52 X10*6/uL (4.60-5.80); White Blood Count 5.3 X10*3/uL (4.8-10.8)
[2024-12-01 06:19] LABS: Alanine Aminotransferase 129 U/L (0-40); Albumin Level 4.0 g/dL (3.5-5.0); Alkaline Phosphatase 42 U/L (39-117); Anion Gap 12 (12-20); Aspartate Amino Transferase 37 U/L (5-37); Blood Urea Nitrogen 13 mg/dL (9-16); Calcium 9.3 mg/dL (8.4-10.2); Carbon Dioxide 25 mmol/L (22-29); Chloride 105 mmol/L (96-108); Creatinine Clr Calc Pharmacy 95.6; Estimated Glomerular Filt Rate > 60; Magnesium 2.1 mg/dL (1.6-2.6); Potassium 4.4 mmol/L (3.3-5.1); Sodium 138 mmol/L (135-145); Total Protein 6.7 g/dL (6.5-8.0)
[2024-12-01 07:26] VITALS: BP 115/63; PULSE 51; RESP 16; TEMP 36; O2SAT 96
--- NOTE | 2024-12-01 08:11 | HO.PM.IMPN ---
Subjective Subjective Date of Service: 12/01/24 Physical Exam Vital Signs: Vital Signs: Last Vital Signs Temp 96.8 F 12/01/24 07:26 Pulse 51 12/01/24 07:26 Resp 16 12/01/24 07:26 BP 115/63 12/01/24 07:26 Pulse Ox 96 12/01/24 07:26 O2 Del Method Room Air 12/01/24 07:26 O2 Flow Rate 2 11/29/24 13:34 BMI result Body Mass Index 33.7 Objective Data Active Medications Acetaminophen (Acetaminophen 325 Mg Tablet) 650 mg PO Q6H PRN PRN Reason: Pain, Mild 1-3,fever,headache Last Admin: 11/29/24 18:09 Dose: 650 mg Documented By: SHAHANA Al Hydroxide/Mg Hydroxide (Magnesium Hydrox/Alum Hydrox 30 Ml Oral.Susp) 30 ml PO Q4H PRN PRN Reason: Heartburn Calcium Carbonate (Calcium Carbonate 750 Mg Tab.Chew) 750 mg PO Q4H PRN PRN Reason: Heartburn Last Admin: 11/30/24 21:49 Dose: 750 mg Documented By: BRIGID Heparin Sodium (Porcine) (Heparin Sodium,Porcine 5,000 Unit/Ml Vial) 4,400 unit 40 unit/kg (4400 unit) IVPUSH PROTOCOL BOLUS PRN; Protocol PRN Reason: 40 unit/kg - Heparin Protocol Heparin Sodium (Porcine) (Heparin Sodium,Porcine 5,000 Unit/Ml Vial) 8,700 unit 80 unit/kg (8700 unit) IVPUSH PROTOCOL BOLUS PRN; Protocol PRN Reason: 80 unit/kg - Heparin Protocol Hydromorphone HCl (Hydromorphone Hcl 2 Mg Tablet) 1 mg PO Q6H PRN PRN Reason: Pain, Moderate(Pain Scale 4-6) Last Admin: 11/30/24 12:27 Dose: 1 mg Documented By: SHAHANA Heparin Sodium/Sodium Chloride (Heparin Sodium,Porcine/1/2ns) 25,000 unit in 250 mls @ 0 mls/hr IVCONT .Q0M [facility]; Protocol Last Admin: 11/30/24 11:00 Dose: 8 units/kg/hr, 8.74 mls/hr Documented By: SHAHANA Co-signed By: KEVIN Ibuprofen (Ibuprofen 400 Mg Tablet) 400 mg PO Q8H [facility] Last Admin: 12/01/24 05:28 Dose: 400 mg Documented By: BRIGID Magnesium Hydroxide (Milk Of Magnesia 30 Ml Oral.Susp) 30 ml PO DAILY PRN PRN Reason: Constipation Last Admin: 11/30/24 08:53 Dose: 30 ml Documented By: SHAHANA Melatonin (Melatonin 3 Mg Tablet) 6 mg PO BEDTIME PRN PRN Reason: Insomnia Morphine Sulfate (Morphine Sulfate 4 Mg/Ml Cartridge) 2 mg IVPUSH Q6H PRN; Protocol PRN Reason: Pain, Severe (Pain Scale 7-10) Last Admin: 11/30/24 23:44 Dose: 2 mg Documented By: BRIGID Ondansetron HCl (Ondansetron Hcl 4 Mg/2 Ml Vial) 4 mg IVPUSH Q8H PRN PRN Reason: Nausea and Vomiting Polyethylene Glycol (Polyethylene Glycol 3350 17 Gm Powd.Pack) 17 gm PO DAILY PRN PRN Reason: Constipation Last Admin: 11/30/24 14:31 Dose: 17 gm Documented By: SHAHANA Sodium Chloride (0.9 % Sodium Chloride Flush 3 Ml Syringe) [facility] Last Admin: 12/01/24 08:08 Dose: Not Given Documented By: CATALINA Non-Admin Reason: IV Running Labs 12/01/24 05:31 12/01/24 05:31 Labs: Laboratory Results - last 24 hr 12/01/24 05:31 MCV 88.4 MCH 29.9 MCHC 33.8 RDW 11.9 Plt Count 167 MPV 8.6 L Immature Gran % (Auto) 0.4 Neut % (Auto) 28.8 L Lymph % (Auto) 53.7 H [place] % (Auto) 10.9 Eos % (Auto) 5.3 H Baso % (Auto) 0.9 Lymph # (Auto) 2.9 [place] # (Auto) 0.6 Eos # (Auto) 0.3 Baso # (Auto) 0.1 Abs Immat Gran (auto) 0.02 Absolute Neuts (auto) 1.5 L Absolute Nucleated RBC 0.000 Nucleated RBC % (auto) 0.0 Anion Gap 12 Estim Creat Clear Calc 95.6 Estimated GFR > 60 Random Glucose 94 Calcium 9.3 Magnesium 2.1 Total Bilirubin 0.6 AST 37 ALT 129 H Alkaline Phosphatase 42 Total Protein 6.7 Albumin 4.0 Quality Stroke Does the patient have a stroke diagnosis?: No VTE Prior VTE?: Yes VTE Risk Level:: Medical - moderate - high VTE Device Contraindication: Treatment Not Indicated VTE Drug Contraindication: N/A - Med Ordered
[2024-12-01 08:15] LABS: PTT Heparin Drip 61.1 SEC (53-77.9)
--- NOTE | 2024-12-01 09:29 | MHC.CM.PN ---
pt does not want rehab wamts to go home with vna
--- NOTE | 2024-12-01 10:30 | PM.DS ---
DS: Providers Provider Date of Service: 12/01/24 Date of admission: 11/28/24 08:21 Date of discharge: 12/01/24 Primary care physician: Xochilt Campbell MD Consults: 11/28/24 10:07 Consult to Hematology / Oncology Routine Consulting Provider: [facility] [place] Oncology/Hematology Reason for consultation: PE 11/28/24 10:39 Consult to Cardiology Routine Consulting Provider: [facility] [place] [facility] Reason for consultation: chest pain, positive stress in past DS: Diagnosis Discharge Diagnosis (1) DVT, bilateral lower limbs: Status: Acute (2) Pulmonary embolism: Status: Acute DS: Summary Hospital Course Hospital Course: Acute pulmonary embolism, likely failed oral Xarelto. Hemodynamically stable-on heparin drip He underwent IVC filter placement on 11/29/2024 however it does prothrombotic Likely significant peripheral pleural pain-pulmonary hygiene and pain control This is a 49-year-old male with a history of recurrent venous thromboembolism, who developed a pulmonary embolism while compliant with Lovenox. He has previously failed Xarelto and Coumadin. He is currently hemodynamically stable and not hypoxic, but is experiencing significant pain and mild increased work of breathing, likely deemed pleuritic in etiology. The patient developed a PE while stated compliancy on Lovenox, with a history of recurrent VTE on multiple anticoagulants. He is hemodynamically stable and not hypoxic. Ultrasound of the leg consistently showed persistent DVT, mild peripheral PE likely causing his pleuritic pain. Hematology consulted, was placed on heparin during the admission, per Hematology, can continue Lovenox. Patient has an upcoming appointment next month. Recurrent VTE despite anticoagulation Given his history of recurrent thrombosis on multiple agents, further workup for hypercoagulable disorders will be initiated, PCP to follow up. Need for inpatient: Extensive discussion has been made with Hematology, vascular surgery, PT and deemed that he was safe to go rehab. Explained to the patient why deconditioning might make his pulmonary etiology worse. Patient agreeable to discharge. This note is constructed using voice recognition software. While every effort has been made to ensure accuracy, laboratory inspector errors may have been included. Time spent discussing smoking cessation with patient: more than 10 minutes Status at Discharge Functional status at discharge: uses cane/walker Time Attestation Discharge Coordination Time (in mins): I have spent more than 55 minutes, once in the morning, again coordinating with the caseworker protective services and staff via pager and again going into the patient's room with the caseworker protective services expanding his disposition plan. Quality: Safe Use of Opioids Does Pt have an Active Cancer Diagnosis on the Problem List?: No Quality: Stroke Does the patient have a stroke diagnosis?: No Physical Exam Vital Signs: Vital Signs: Last Vital Signs Temp 96.8 F 12/01/24 07:26 Pulse 51 12/01/24 07:26 Resp 16 12/01/24 07:26 BP 115/63 12/01/24 07:26 Pulse Ox 96 12/01/24 07:26 O2 Del Method Room Air 12/01/24 07:26 O2 Flow Rate 2 11/29/24 13:34 BMI result Body Mass Index 33.7 DS: Data Data Completed and Pending Labs on day of discharge: Laboratory Results - last 24 hr 12/01/24 05:31 WBC 5.3 RBC 5.52 Hgb 16.5 Hct 48.8 MCV 88.4 MCH 29.9 MCHC 33.8 RDW 11.9 Plt Count 167 MPV 8.6 L Immature Gran % (Auto) 0.4 Neut % (Auto) 28.8 L Lymph % (Auto) 53.7 H [place] % (Auto) 10.9 Eos % (Auto) 5.3 H Baso % (Auto) 0.9 Lymph # (Auto) 2.9 [place] # (Auto) 0.6 Eos # (Auto) 0.3 Baso # (Auto) 0.1 Abs Immat Gran (auto) 0.02 Absolute Neuts (auto) 1.5 L Absolute Nucleated RBC 0.000 Nucleated RBC % (auto) 0.0 aPTT Heparin Protocol 61.1 Sodium 138 Potassium 4.4 Chloride 105 Carbon Dioxide 25 Anion Gap 12 BUN 13 Creatinine 1.15 Estim Creat Clear Calc 95.6 Estimated GFR > 60 Random Glucose 94 Calcium 9.3 Magnesium 2.1 Total Bilirubin 0.6 AST 37 ALT 129 H Alkaline Phosphatase 42 Total Protein 6.7 Albumin 4.0 Discharge Plan Discharge Anticipated Discharge Date/Time: 12/01/24 10:09 Patient Disposition: Home Health Service Discharge Diagnosis: Acute PE in a patient who has per thrombosis Referrals: [facility] [Other] - 1 Week Xochilt Vides MD [Primary Care Provider, Internal Medicine] - 1 Week Discharge Medications: New acetaminophen 325 mg Tablet 650 mg PO Q6H PRN (Reason: Pain, Mild 1-3,Fever,Headache) 30 Days Qty: 30 3RF ibuprofen 400 mg Tablet 400 mg PO Q8H 30 Days Qty: 90 3RF Continued (DME) EMS Anti-Embolism Stocking Misc Qty: 2 1RF Rx Instructions: As Directed metoprolol succinate [Toprol XL] 25 mg tablet extended release 24 hr 25 mg PO BEDTIME enoxaparin [Lovenox] 120 mg/0.8 mL Syringe 120 mg SUBCUT Q12H Qty: 60 3RF nitroglycerin 0.4 mg tablet, sublingual 0.4 mg sublingual Q5M PRN (Reason: chest pain) Qty: 30 5RF Rx Instructions: do not exceed 3 doses per episode Discharge Orders: Discharge Order (Routine); Ordered 12/01/24 Ordered By: Jami Polanco Diet: Advance to usual diet Activity on Discharge: As tolerated Stand Alone Forms: Patient Portal Discharge page, Work/School Release Print Language: Italian Activity Restrictions/Additional Instructions: Definition: Pleuritic chest pain is?a sharp, stabbing pain that occurs when the pleura, the thin membranes that line the lungs and chest cavity, become inflamed.Blood clots:?Pulmonary embolism Symptoms:? Sharp, stabbing pain in the chest that worsens with deep breaths, coughing, or sneezing Pain that may radiate to the back, shoulder, or neck Shortness of breath Fever Cough Diagnosis: Physical exam: The doctor will listen to your chest for a rubbing sound called a pleural friction rub.? Chest X-ray: To rule out underlying conditions, such as pneumonia or a tumor? Blood tests: To check for infections or autoimmune diseases? Treatment:? Rest Pain relievers, such as ibuprofen or acetaminophen Anti-inflammatory medications, such as corticosteroids Antibiotics if the pain is caused by an infection Surgery may be required in rare cases, such as for a pleural effusion (fluid buildup in the pleural space) Prognosis:? Most cases of pleuritic chest pain resolve within a few weeks with treatment.?However, the prognosis depends on the underlying cause.?? Care Plan Goals: Pulmonary hygeine Pleuritic chest pain - symptomaticrx Acapella valve, incentive spirometer CPAP Patient continued to complain of chest pain although he was on maximal medical therapy Health Concerns: Consulted Hematology, vascular surgery, Chest pain --pleuritic in etiology Symptomatic management Reassurances were given Plan of Treatment: See above Assessment: See above
[2024-12-01] MEDS: Heparin Sodium,Porcine/1/2NS 25,000 UNIT/250 ML IV.SOLN 8.74 UNIT IVCONT (11:15)
--- NOTE | 2024-12-01 11:33 | W.MHC.F2F ---
Service Date Service Date: 12/01/24 Encounter Date of encounter: 12/01/24 Reasons for Services Signs and symptoms assessed: See below Reason for physical therapy: home safety and mobility, therapeutic exercises and ADL training Reason for occupational therapy: home safety and mobility, therapeutic exercises and ADL training Homebound: Leaving the home is medically contraindicated at this time without the asist of a device and/or another person due th the listed conditions above and below. Reason homebound: unsteady gait / fall risk and leg weakness Certification: Based on the above findings, I certify that this patient is confined to the home and needs intermittent senior care care, physical therapy and/or speech therapy, or continues to need occupational therapy. The patient is under my care, and I have initiated the establishment of the plan of care. The patient will be followed by a physician who will periodically review the plan of care. Time Spent With Patient Time: Total time managing care of this patient today ____ minutes.
[2024-12-01 13:00] VITALS: BP 121/72; PULSE 58; RESP 16; O2SAT 97
[2024-12-01 15:19] VITALS: BP 116/71; PULSE 51; RESP 18; TEMP 36.7; O2SAT 99
[2024-12-01 20:10] VITALS: BP 130/75; PULSE 54; RESP 18; TEMP 36.1; O2SAT 96
[2024-12-02] VITALS: BP 145/87; PULSE 51; RESP 18; TEMP 36.1; O2SAT 98
[2024-12-02 05:10] LABS: MANUAL DIFF FLAG NO
[2024-12-02 05:13] LABS: Hematocrit 48.2 % (42.0-52.0); Hemoglobin 16.7 g/dl (14.0-18.0); Imm Gran Abs Auto 0.02 X10*3/uL (0.00-0.03); Imm Gran Pct Auto 0.4 % (0.0-0.4); Lymphocytes Absolute Auto 2.6 X10*3/uL (1.2-4.9); Mean Corpuscular HGB Conc 34.6 g/dl (31.0-36.0); Mean Corpuscular Hemoglobin 30.1 pg (27.0-33.0); Mean Corpuscular Volume 87.0 fL (80.0-98.0); NRBC Abs Auto 0.000 X10*3/uL (0.0-0.012); NRBC Pct Auto 0.0 /100WBC (0.0-0.2); Platelet Count 170 X10*3/uL (160-400); Red Blood Count 5.54 X10*6/uL (4.60-5.80); White Blood Count 5.5 X10*3/uL (4.8-10.8)
[2024-12-02 05:26] LABS: Alanine Aminotransferase 119 U/L (0-40); Albumin Level 4.1 g/dL (3.5-5.0); Alkaline Phosphatase 44 U/L (39-117); Anion Gap 14 (12-20); Aspartate Amino Transferase 35 U/L (5-37); Blood Urea Nitrogen 13 mg/dL (9-16); Calcium 9.5 mg/dL (8.4-10.2); Carbon Dioxide 24 mmol/L (22-29); Chloride 105 mmol/L (96-108); Creatinine Clr Calc Pharmacy 94.0; Estimated Glomerular Filt Rate > 60; Magnesium 2.0 mg/dL (1.6-2.6); Potassium 4.6 mmol/L (3.3-5.1); Sodium 138 mmol/L (135-145); Total Protein 6.8 g/dL (6.5-8.0)
[2024-12-02 05:30] LABS: PTT Heparin Drip 64.3 SEC (53-77.9)
--- NOTE | 2024-12-02 05:53 | PC.NURSE ---
Pt seen on bed alert and oriented, still with chest heaviness and some SOB with exertion relieved with rest, Heparin drip maintained , PTT WTR, no bleeds noted. Chest heaviness intendsifed after brushing his teeth , prn Moprhine given with good effect. Routine PTT-HD =64.3, Heparin dose unchanged.
[2024-12-02 08:00] VITALS: BP 110/73; PULSE 56; RESP 20; TEMP 36.1; O2SAT 98
[2024-12-02 11:50] VITALS: BMI 33.2
--- NOTE | 2024-12-02 12:00 | HO.PM.IMPN ---
Subjective Subjective Date of Service: 12/02/24 Interval History: Seen and evaluated Overall feels better still reporting back pain with breathing no other events Review of Systems Review of Systems: Yes all other systems are reviewed and are negative Physical Exam Vital Signs: Vital Signs: Last Vital Signs Temp 97.0 F 12/02/24 08:00 Pulse 56 12/02/24 08:00 Resp 20 12/02/24 08:00 BP 110/73 12/02/24 08:00 Pulse Ox 98 12/02/24 08:00 O2 Del Method Room Air 12/02/24 08:00 O2 Flow Rate 2 11/29/24 13:34 BMI result Body Mass Index 33.2 Const: Other: General: AO X 3, no acute distress Resp: CTA bilateral CVS: S1,S2,RRR GI: +BS, NT, no distention Skin: No rash Neuro: motor grossly intact Psych: appropriate affect Objective Data Active Medications Acetaminophen (Acetaminophen 325 Mg Tablet) 650 mg PO Q6H PRN PRN Reason: Pain, Mild 1-3,fever,headache Last Admin: 11/29/24 18:09 Dose: 650 mg Documented By: SHAHANA Al Hydroxide/Mg Hydroxide (Magnesium Hydrox/Alum Hydrox 30 Ml Oral.Susp) 30 ml PO Q4H PRN PRN Reason: Heartburn Calcium Carbonate (Calcium Carbonate 750 Mg Tab.Chew) 750 mg PO Q4H PRN PRN Reason: Heartburn Last Admin: 11/30/24 21:49 Dose: 750 mg Documented By: BRIGID Enoxaparin Sodium (Enoxaparin Sodium 120 Mg/0.8 Ml Syringe) 110 mg SUBCUT Q12H [facility] Last Admin: 12/02/24 11:16 Dose: 110 mg Documented By: CATALINA Hydromorphone HCl (Hydromorphone Hcl 2 Mg Tablet) 1 mg PO Q6H PRN PRN Reason: Pain, Moderate(Pain Scale 4-6) Last Admin: 12/02/24 10:25 Dose: 1 mg Documented By: CATALINA Ibuprofen (Ibuprofen 400 Mg Tablet) 400 mg PO Q8H [facility] Last Admin: 12/02/24 05:26 Dose: 400 mg Documented By: ANGUS Magnesium Hydroxide (Milk Of Magnesia 30 Ml Oral.Susp) 30 ml PO DAILY PRN PRN Reason: Constipation Last Admin: 11/30/24 08:53 Dose: 30 ml Documented By: SHAHANA Melatonin (Melatonin 3 Mg Tablet) 6 mg PO BEDTIME PRN PRN Reason: Insomnia Morphine Sulfate (Morphine Sulfate 4 Mg/Ml Cartridge) 2 mg IVPUSH Q6H PRN; Protocol PRN Reason: Pain, Severe (Pain Scale 7-10) Last Admin: 12/02/24 11:30 Dose: 2 mg Documented By: CATALINA Ondansetron HCl (Ondansetron Hcl 4 Mg/2 Ml Vial) 4 mg IVPUSH Q8H PRN PRN Reason: Nausea and Vomiting Polyethylene Glycol (Polyethylene Glycol 3350 17 Gm Powd.Pack) 17 gm PO DAILY PRN PRN Reason: Constipation Last Admin: 12/01/24 14:48 Dose: 17 gm Documented By: CATALINA Sodium Chloride (0.9 % Sodium Chloride Flush 3 Ml Syringe) 3 ml IVFLUSH QSHIFT [facility] Last Admin: 12/02/24 07:44 Dose: Not Given Documented By: CATALINA Non-Admin Reason: IV Running Labs 12/02/24 05:04 12/02/24 05:09 Labs: Laboratory Results - last 24 hr 12/02/24 12/02/24 05:04 05:09 MCV 87.0 MCH 30.1 MCHC 34.6 RDW 11.9 Plt Count 170 MPV 8.6 L Immature Gran % (Auto) 0.4 Neut % (Auto) 35.4 L Lymph % (Auto) 47.6 H [place] % (Auto) 11.2 H Eos % (Auto) 4.5 H Baso % (Auto) 0.9 Lymph # (Auto) 2.6 [place] # (Auto) 0.6 Eos # (Auto) 0.3 Baso # (Auto) 0.1 Abs Immat Gran (auto) 0.02 Absolute Neuts (auto) 2.0 Absolute Nucleated RBC 0.000 Nucleated RBC % (auto) 0.0 aPTT Heparin Protocol 64.3 Anion Gap 14 Estim Creat Clear Calc 94.0 Estimated GFR > 60 Random Glucose 96 Calcium 9.5 Magnesium 2.0 Total Bilirubin 0.6 AST 35 ALT 119 H Alkaline Phosphatase 44 Total Protein 6.8 Albumin 4.1 Assessment and Plan (1) DVT, bilateral lower limbs: Status: Acute (2) 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 He has previously failed Xarelto and Coumadin. He is currently hemodynamically stable and not hypoxic, but is experiencing significant pain and mild increased work of breathing. Acute pulmonary embolism likely failed oral Xarelto. US of the legs show old clot no new clots Hemodynamically stable, DC heparin drip He underwent IVC filter placement on 11/29/2024 Likely significant peripheral pleural pain-pulmonary hygiene and pain control Start Lovenox 1mg\kg bid To follow with Hematology as outpatient Tylenol for mild pain, Morphine for severe pain Recurrent VTE despite anticoagulation Given his history of recurrent thrombosis on multiple agents, further workup for hypercoagulable disorders will be initiated. Consideration for long-term or alternative anticoagulation strategies will be discussed with hematology as outpatient next month Physical deconditioning PT rec STR placement Pending Auth Code status: Full code Need for inpatient; risk of falls on full anticoagulation pending STR placement Quality Stroke Does the patient have a stroke diagnosis?: No VTE Prior VTE?: Yes VTE Risk Level:: Medical - moderate - high VTE Device Contraindication: Treatment Not Indicated VTE Drug Contraindication: N/A - Med Ordered
[2024-12-02 13:00] VITALS: BP 127/73; PULSE 84; RESP 20; TEMP 37.1; O2SAT 94
[2024-12-02] MEDS: 0.9 % Sodium Chloride Flush 3 ML SYRINGE IVFLUSH ×2 (15:33→19:43)
[2024-12-02] MEDS: Magnesium Hydrox/Alum Hydrox 30 ML ORAL.SUSP PO (15:33)
--- NOTE | 2024-12-02 15:44 | MHC.CM.PN ---
Addendum entered by Elizabeth Lopez 12/03/24 16:05: PT UPDATED THAT AUTH IS STILL PENDING [employer] HAS SUBMITTED MOST RECENT EVALS/PN TO [employer] PT WILL DC TO STR ONCE INSURANCE AUTH IS OBTAINED Original Note: pt and family are aware that[facility] is going for auth with dc likely for tomorrow
[2024-12-02 16:13] VITALS: BP 123/81; PULSE 55; RESP 18; TEMP 36.3; O2SAT 97
[2024-12-02 23:43] VITALS: BP 122/65; PULSE 55; RESP 16; TEMP 36.4; O2SAT 96
[2024-12-03 05:09] LABS: MANUAL DIFF FLAG NO
[2024-12-03 05:11] LABS: Hematocrit 49.0 % (42.0-52.0); Hemoglobin 16.6 g/dl (14.0-18.0); Imm Gran Abs Auto 0.02 X10*3/uL (0.00-0.03); Imm Gran Pct Auto 0.3 % (0.0-0.4); Lymphocytes Absolute Auto 3.2 X10*3/uL (1.2-4.9); Mean Corpuscular HGB Conc 33.9 g/dl (31.0-36.0); Mean Corpuscular Hemoglobin 29.8 pg (27.0-33.0); Mean Corpuscular Volume 88.0 fL (80.0-98.0); NRBC Abs Auto 0.000 X10*3/uL (0.0-0.012); NRBC Pct Auto 0.0 /100WBC (0.0-0.2); Platelet Count 171 X10*3/uL (160-400); Red Blood Count 5.57 X10*6/uL (4.60-5.80); White Blood Count 6.1 X10*3/uL (4.8-10.8)
[2024-12-03 05:20] LABS: PTT Heparin Drip 48.5 SEC (53-77.9)
[2024-12-03 05:27] LABS: Alanine Aminotransferase 108 U/L (0-40); Albumin Level 4.0 g/dL (3.5-5.0); Alkaline Phosphatase 42 U/L (39-117); Anion Gap 14 (12-20); Aspartate Amino Transferase 35 U/L (5-37); Blood Urea Nitrogen 14 mg/dL (9-16); Calcium 9.1 mg/dL (8.4-10.2); Carbon Dioxide 28 mmol/L (22-29); Chloride 100 mmol/L (96-108); Creatinine Clr Calc Pharmacy 75.3; Estimated Glomerular Filt Rate 51; Magnesium 2.1 mg/dL (1.6-2.6); Potassium 4.9 mmol/L (3.3-5.1); Sodium 137 mmol/L (135-145); Total Protein 6.7 g/dL (6.5-8.0)
[2024-12-03 07:48] VITALS: BP 126/70; PULSE 56; RESP 18; TEMP 36.5; O2SAT 94
[2024-12-03] MEDS: 0.9 % Sodium Chloride Flush 3 ML SYRINGE IVFLUSH ×3 (08:04→20:12)
[2024-12-03] MEDS: Milk of Magnesia 30 ML ORAL.SUSP PO (08:25)
[2024-12-03 10:10] VITALS: BP 128/71; PULSE 53
[2024-12-03 10:15] VITALS: BP 119/63; PULSE 60
[2024-12-03 10:20] VITALS: BP 118/64; PULSE 64
[2024-12-03 14:48] VITALS: BP 117/62; PULSE 56; O2SAT 97
--- NOTE | 2024-12-03 16:09 | P.PNIM_ITS ---
Subjective Subjective Date of Service: 12/03/24 Interval History: Reports new left-sided pleuritic chest pain Occasional cough and SOB Feels weak Pt waning prior for STR Review of Systems Review of Systems: Yes all other systems are reviewed and are negative Physical Exam 2 Exam: Exam: General: AOx3, no acute distress. Weak, uncomfortable. Speaking softly Resp: CTA bilaterally CVS: S1, S2, RRR GI: +BS, NT, no distention Skin: Warm, dry Neuro: Cranial nerves II-XII grossly intact bilaterally. Motor grossly intact bilaterally Extremities: No edema Psych: Calm and cooperative Vital Signs: Vital Signs: Last Vital Signs Temp 97.7 F 12/03/24 07:48 Pulse 56 12/03/24 14:48 Resp 18 12/03/24 07:48 BP 117/62 12/03/24 14:48 Pulse Ox 97 12/03/24 14:48 O2 Del Method Room Air 12/03/24 07:48 O2 Flow Rate 2 11/29/24 13:34 BMI result Body Mass Index 33.2 Objective Data Active Medications Acetaminophen (Acetaminophen 325 Mg Tablet) 650 mg PO Q6H PRN PRN Reason: Pain, Mild 1-3,fever,headache Last Admin: 11/29/24 18:09 Dose: 650 mg Documented By: SHAHANA Al Hydroxide/Mg Hydroxide (Magnesium Hydrox/Alum Hydrox 30 Ml Oral.Susp) 30 ml PO Q4H PRN PRN Reason: Heartburn Last Admin: 12/02/24 15:33 Dose: 30 ml Documented By: CATALINA Calcium Carbonate (Calcium Carbonate 750 Mg Tab.Chew) 750 mg PO Q4H PRN PRN Reason: Heartburn Last Admin: 11/30/24 21:49 Dose: 750 mg Documented By: BRIGID Enoxaparin Sodium (Enoxaparin Sodium 120 Mg/0.8 Ml Syringe) 110 mg SUBCUT Q12H [facility] Last Admin: 12/03/24 10:25 Dose: 110 mg Documented By: LAW Hydromorphone HCl (Hydromorphone Hcl 2 Mg Tablet) 2 mg PO Q6H PRN PRN Reason: Pain, Moderate(Pain Scale 4-6) Last Admin: 12/03/24 15:32 Dose: 2 mg Documented By: LAW Ibuprofen (Ibuprofen 400 Mg Tablet) 400 mg PO Q8H [facility] Last Admin: 12/03/24 14:12 Dose: 400 mg Documented By: LAW Magnesium Hydroxide (Milk Of Magnesia 30 Ml Oral.Susp) 30 ml PO DAILY PRN PRN Reason: Constipation Last Admin: 12/03/24 08:25 Dose: 30 ml Documented By: LAW Melatonin (Melatonin 3 Mg Tablet) 6 mg PO BEDTIME PRN PRN Reason: Insomnia Morphine Sulfate (Morphine Sulfate 4 Mg/Ml Cartridge) 2 mg IVPUSH Q6H PRN; Protocol PRN Reason: Pain, Severe (Pain Scale 7-10) Last Admin: 12/03/24 12:17 Dose: 2 mg Documented By: LAW Ondansetron HCl (Ondansetron Hcl 4 Mg/2 Ml Vial) 4 mg IVPUSH Q8H PRN PRN Reason: Nausea and Vomiting Polyethylene Glycol (Polyethylene Glycol 3350 17 Gm Powd.Pack) 17 gm PO DAILY PRN PRN Reason: Constipation Last Admin: 12/02/24 12:29 Dose: 17 gm Documented By: CATALINA Sodium Chloride (0.9 % Sodium Chloride Flush 3 Ml Syringe) 3 ml IVFLUSH [facility] Last Admin: 12/03/24 15:33 Dose: 3 ml Documented By: LAW Labs 12/03/24 05:03 12/03/24 05:03 Labs: Laboratory Results - last 24 hr 12/03/24 05:03 MCV 88.0 MCH 29.8 MCHC 33.9 RDW 12.0 Plt Count 171 MPV 8.9 L Immature Gran % (Auto) 0.3 Neut % (Auto) 30.3 L Lymph % (Auto) 52.6 H [place] % (Auto) 11.2 H Eos % (Auto) 4.8 H Baso % (Auto) 0.8 Lymph # (Auto) 3.2 [place] # (Auto) 0.7 Eos # (Auto) 0.3 Baso # (Auto) 0.1 Abs Immat Gran (auto) 0.02 Absolute Neuts (auto) 1.8 L Absolute Nucleated RBC 0.000 Nucleated RBC % (auto) 0.0 aPTT Heparin Protocol 48.5 L D Anion Gap 14 Estim Creat Clear Calc 75.3 Estimated GFR 51 Random Glucose 88 Calcium 9.1 Magnesium 2.1 Total Bilirubin 0.7 AST 35 ALT 108 H Alkaline Phosphatase 42 Total Protein 6.7 Albumin 4.0 Assessment and Plan (1) Pulmonary embolism: Status: Acute Plan This is a 49-year-old male with a history of recurrent venous thromboembolism, who developed a pulmonary embolism while compliant with Lovenox. He has previously failed Xarelto and Coumadin. He is currently hemodynamically stable and not hypoxic, but is experiencing significant pain and mild increased work of breathing. Acute pulmonary embolism likely failed oral Xarelto US of the legs show old clot, no new clots Hemodynamically stable, heparin drip dc'd He underwent IVC filter placement on 11/29/2024 Likely significant peripheral pleural pain-pulmonary hygiene and pain control Resume Lovenox 1mg\kg bid To follow with Hematology as outpatient Tylenol for mild pain, Morphine for severe pain Chest CXR for left-sided pleuritic discomfort Recurrent VTE despite anticoagulation Given his history of recurrent thrombosis on multiple agents, further workup for hypercoagulable disorders will be initiated Consideration for long-term or alternative anticoagulation strategies will be discussed with hematology as outpatient next month Physical deconditioning PT rec STR placement Pending Auth Code status: Full code Need for inpatient; risk of falls on full anticoagulation pending STR placement. Still waiting on insurance prior auth. Quality Stroke Does the patient have a stroke diagnosis?: No VTE Prior VTE?: Yes VTE Risk Level:: Medical - moderate - high VTE Device Contraindication: Treatment Not Indicated VTE Drug Contraindication: N/A - Med Ordered
[2024-12-03 16:24] VITALS: BP 132/72; PULSE 55; RESP 18; TEMP 36.1; O2SAT 98
[2024-12-04] VITALS (7 sets, daily range): BP systolic 104–126; BP diastolic 54–74; PULSE 50–61; RESP 17–20; TEMP 36.1–36.6; O2SAT 97–99
[2024-12-04 05:30] LABS: MANUAL DIFF FLAG NO
[2024-12-04 05:38] LABS: Hematocrit 46.3 % (42.0-52.0); Hemoglobin 15.8 g/dl (14.0-18.0); Imm Gran Abs Auto 0.01 X10*3/uL (0.00-0.03); Imm Gran Pct Auto 0.2 % (0.0-0.4); Lymphocytes Absolute Auto 3.2 X10*3/uL (1.2-4.9); Mean Corpuscular HGB Conc 34.1 g/dl (31.0-36.0); Mean Corpuscular Hemoglobin 30.4 pg (27.0-33.0); Mean Corpuscular Volume 89.0 fL (80.0-98.0); NRBC Abs Auto 0.000 X10*3/uL (0.0-0.012); NRBC Pct Auto 0.0 /100WBC (0.0-0.2); Platelet Count 171 X10*3/uL (160-400); Red Blood Count 5.20 X10*6/uL (4.60-5.80); White Blood Count 6.4 X10*3/uL (4.8-10.8)
[2024-12-04 05:51] LABS: Alanine Aminotransferase 104 U/L (0-40); Albumin Level 4.1 g/dL (3.5-5.0); Alkaline Phosphatase 43 U/L (39-117); Anion Gap 12 (12-20); Aspartate Amino Transferase 39 U/L (5-37); Blood Urea Nitrogen 15 mg/dL (9-16); Calcium 9.1 mg/dL (8.4-10.2); Carbon Dioxide 28 mmol/L (22-29); Chloride 102 mmol/L (96-108); Creatinine Clr Calc Pharmacy 78.5; Estimated Glomerular Filt Rate 54; Magnesium 2.4 mg/dL (1.6-2.6); Potassium 4.2 mmol/L (3.3-5.1); Sodium 138 mmol/L (135-145); Total Protein 7.1 g/dL (6.5-8.0)
[2024-12-04] MEDS: 0.9 % Sodium Chloride Flush 3 ML SYRINGE IVFLUSH ×2 (08:10→13:23)
[2024-12-04 14:57] LABS: Glucose, Whole Blood 112 mg/dL (60-115)
--- NOTE | 2024-12-04 18:53 | P.PNIM_ITS ---
Subjective Subjective Date of Service: 12/04/24 Interval History: Reports had bowel movement last night Continues to have right-sided chest tightness but left-side now resolved CXR as negative for acute findings Continues to be tired and sleeping poorly Waiting on insurance prior auth Review of Systems Review of Systems: Yes all other systems are reviewed and are negative Physical Exam 2 Exam: Exam: General: AOx3, no acute distress. Appear weak, speaking softly. Resp: CTA bilaterally CVS: S1, S2, RRR GI: +BS, NT, no distention Skin: Warm, dry Neuro: Cranial nerves II-XII grossly intact bilaterally. Motor grossly intact bilaterally Extremities: No edema Psych: Calm and cooperative Vital Signs: Vital Signs: Last Vital Signs Temp 97.8 F 12/04/24 15:47 Pulse 60 12/04/24 15:47 Resp 20 12/04/24 15:47 BP 104/65 12/04/24 15:47 Pulse Ox 97 12/04/24 15:47 O2 Del Method Nasal Cannula 12/04/24 15:47 O2 Flow Rate 2 12/04/24 15:47 BMI result Body Mass Index 33.2 Objective Data Active Medications Acetaminophen (Acetaminophen 325 Mg Tablet) 650 mg PO Q6H PRN PRN Reason: Pain, Mild 1-3,fever,headache Last Admin: 11/29/24 18:09 Dose: 650 mg Documented By: SHAHANA Al Hydroxide/Mg Hydroxide (Magnesium Hydrox/Alum Hydrox 30 Ml Oral.Susp) 30 ml PO Q4H PRN PRN Reason: Heartburn Last Admin: 12/02/24 15:33 Dose: 30 ml Documented By: CATALINA Calcium Carbonate (Calcium Carbonate 750 Mg Tab.Chew) 750 mg PO Q4H PRN PRN Reason: Heartburn Last Admin: 11/30/24 21:49 Dose: 750 mg Documented By: BRIGID Docusate Sodium (Docusate Sodium 100 Mg Capsule) 100 mg PO BID [facility] Last Admin: 12/04/24 08:09 Dose: 100 mg Documented By: ARNOLDO Enoxaparin Sodium (Enoxaparin Sodium 120 Mg/0.8 Ml Syringe) 110 mg SUBCUT Q12H [facility] Last Admin: 12/04/24 10:29 Dose: 110 mg Documented By: ARNOLDO Hydromorphone HCl (Hydromorphone Hcl 2 Mg Tablet) 2 mg PO Q6H PRN PRN Reason: Pain, Moderate(Pain Scale 4-6) Last Admin: 12/04/24 08:57 Dose: 2 mg Documented By: ARNOLDO Ibuprofen (Ibuprofen 400 Mg Tablet) 400 mg PO Q8H [facility] Last Admin: 12/04/24 12:06 Dose: 400 mg Documented By: ARNOLDO Magnesium Hydroxide (Milk Of Magnesia 30 Ml Oral.Susp) 30 ml PO DAILY PRN PRN Reason: Constipation Last Admin: 12/03/24 08:25 Dose: 30 ml Documented By: LAW Melatonin (Melatonin 3 Mg Tablet) 6 mg PO BEDTIME PRN PRN Reason: Insomnia Morphine Sulfate (Morphine Sulfate 4 Mg/Ml Cartridge) 2 mg IVPUSH Q8H PRN; Protocol PRN Reason: Pain, Severe (Pain Scale 7-10) Last Admin: 12/04/24 13:22 Dose: 2 mg Documented By: ARNOLDO Ondansetron HCl (Ondansetron Hcl 4 Mg/2 Ml Vial) 4 mg IVPUSH Q8H PRN PRN Reason: Nausea and Vomiting Polyethylene Glycol (Polyethylene Glycol 3350 17 Gm Powd.Pack) 17 gm PO DAILY PRN PRN Reason: Constipation Last Admin: 12/03/24 20:12 Dose: 17 gm Documented By: ANDRZEJRISElizabeth Sodium Chloride (0.9 % Sodium Chloride Flush 3 Ml Syringe) 3 ml IVFLUSH [facility] Last Admin: 12/04/24 13:23 Dose: 3 ml Documented By: ARNOLDO Labs 12/04/24 05:02 12/04/24 05:02 Labs: Laboratory Results - last 24 hr 12/04/24 12/04/24 05:02 14:49 MCV 89.0 MCH 30.4 MCHC 34.1 RDW 11.9 Plt Count 171 MPV 8.7 L Immature Gran % (Auto) 0.2 Neut % (Auto) 31.0 L Lymph % (Auto) 50.1 H [place] % (Auto) 12.8 H Eos % (Auto) 5.1 H Baso % (Auto) 0.8 Lymph # (Auto) 3.2 [place] # (Auto) 0.8 Eos # (Auto) 0.3 Baso # (Auto) 0.1 Abs Immat Gran (auto) 0.01 Absolute Neuts (auto) 2.0 Absolute Nucleated RBC 0.000 Nucleated RBC % (auto) 0.0 Anion Gap 12 Estim Creat Clear Calc 78.5 Estimated GFR 54 POC Glucose 112 Random Glucose 88 Calcium 9.1 Magnesium 2.4 Total Bilirubin 0.7 AST 39 H ALT 104 H Alkaline Phosphatase 43 Total Protein 7.1 Albumin 4.1 Assessment and Plan (1) Pulmonary embolism: Status: Acute Plan This is a 49-year-old male with a history of recurrent venous thromboembolism, who developed a pulmonary embolism while compliant with Lovenox. He has previously failed Xarelto and Coumadin. He is currently hemodynamically stable and not hypoxic, but is experiencing significant pain and mild increased work of breathing. Acute pulmonary embolism likely failed oral Xarelto US of the legs show old clot, no new clots Hemodynamically stable, heparin drip dc'd He underwent IVC filter placement on 11/29/2024 Likely significant peripheral pleural pain-pulmonary hygiene and pain control Resume Lovenox 1mg\kg bid To follow with Hematology as outpatient for hypercoagulability Switch to p.o. analgesics for pain management Chest CXR negative for acute process Recurrent VTE despite anticoagulation Given his history of recurrent thrombosis on multiple agents, further workup for hypercoagulable disorders will be initiated Consideration for long-term or alternative anticoagulation strategies will be discussed with hematology as outpatient next month Physical deconditioning PT rec STR placement Pending Auth Code status: Full code Need for inpatient; risk of falls on full anticoagulation pending STR placement. Still waiting on insurance prior auth. Quality Stroke Does the patient have a stroke diagnosis?: No VTE Prior VTE?: Yes VTE Risk Level:: Medical - moderate - high VTE Device Contraindication: Treatment Not Indicated VTE Drug Contraindication: N/A - Med Ordered
[2024-12-05] MEDS: 0.9 % Sodium Chloride Flush 3 ML SYRINGE IVFLUSH ×3 (00:22→20:06)
[2024-12-05 05:47] LABS: MANUAL DIFF FLAG NO
[2024-12-05 05:52] LABS: Hematocrit 49.0 % (42.0-52.0); Hemoglobin 16.9 g/dl (14.0-18.0); Imm Gran Abs Auto 0.02 X10*3/uL (0.00-0.03); Imm Gran Pct Auto 0.4 % (0.0-0.4); Lymphocytes Absolute Auto 2.8 X10*3/uL (1.2-4.9); Mean Corpuscular HGB Conc 34.5 g/dl (31.0-36.0); Mean Corpuscular Hemoglobin 29.9 pg (27.0-33.0); Mean Corpuscular Volume 86.7 fL (80.0-98.0); NRBC Abs Auto 0.000 X10*3/uL (0.0-0.012); NRBC Pct Auto 0.0 /100WBC (0.0-0.2); Platelet Count 170 X10*3/uL (160-400); Red Blood Count 5.65 X10*6/uL (4.60-5.80); White Blood Count 5.3 X10*3/uL (4.8-10.8)
[2024-12-05 06:13] LABS: Alanine Aminotransferase 99 U/L (0-40); Albumin Level 4.1 g/dL (3.5-5.0); Alkaline Phosphatase 42 U/L (39-117); Anion Gap 13 (12-20); Aspartate Amino Transferase 35 U/L (5-37); Blood Urea Nitrogen 18 mg/dL (9-16); Calcium 9.3 mg/dL (8.4-10.2); Carbon Dioxide 28 mmol/L (22-29); Chloride 103 mmol/L (96-108); Creatinine Clr Calc Pharmacy 86.7; Estimated Glomerular Filt Rate > 60; Magnesium 2.3 mg/dL (1.6-2.6); Potassium 4.6 mmol/L (3.3-5.1); Sodium 139 mmol/L (135-145); Total Protein 6.9 g/dL (6.5-8.0)
[2024-12-05 07:39] VITALS: BP 115/70; PULSE 50; RESP 18; TEMP 36.5; O2SAT 99
[2024-12-05 10:50] VITALS: PULSE 57; PULSE 62; PULSE 65; O2SAT 94; O2SAT 97; O2SAT 98
[2024-12-05 15:04] VITALS: BP 137/88; PULSE 69; O2SAT 97
--- NOTE | 2024-12-05 15:56 | MHC.CM.PN ---
INS DENIED SNF PLACMENT FAMILY FILED AN APPEAL T/W ASKED DR BURNS TO DO A PEER TO PEER NUMBER FOR SAME GIVEN TO .
[2024-12-05 15:57] VITALS: BP 129/62; PULSE 57; RESP 18; TEMP 35.9; O2SAT 96
--- NOTE | 2024-12-05 20:04 | P.PNIM_ITS ---
Subjective Subjective Date of Service: 12/05/24 Interval History: Reports feels worsened yesterday with right-sided pleuritic pain Reports loose stool yesterday, would like to back off on laxatives Was out of bed yesterday with PT Continues to feel weak, tired, and deconditioned Insurance declined to patient's short-term rehab and patient's is appealing the case which allows her a 72 hour window Review of Systems Review of Systems: Yes all other systems are reviewed and are negative Physical Exam 2 Exam: Exam: General: AOx3, no acute distress. Appears weak Resp: CTA bilaterally CVS: S1, S2, RRR GI: +BS, NT, no distention Skin: Warm, dry Neuro: Cranial nerves II-XII grossly intact bilaterally. Motor grossly intact bilaterally Extremities: No edema Psych: Calm and cooperative Vital Signs: Vital Signs: Last Vital Signs Temp 96.7 F L 12/05/24 15:57 Pulse 57 12/05/24 15:57 Resp 18 12/05/24 15:57 BP 129/62 12/05/24 15:57 Pulse Ox 96 12/05/24 15:57 O2 Del Method Nasal Cannula 12/05/24 15:57 O2 Flow Rate 2 12/05/24 15:57 BMI result Body Mass Index 33.2 Objective Data Active Medications Acetaminophen (Acetaminophen 325 Mg Tablet) 650 mg PO Q6H PRN PRN Reason: Pain, Mild 1-3,fever,headache Last Admin: 11/29/24 18:09 Dose: 650 mg Documented By: SHAHANA Al Hydroxide/Mg Hydroxide (Magnesium Hydrox/Alum Hydrox 30 Ml Oral.Susp) 30 ml PO Q4H PRN PRN Reason: Heartburn Last Admin: 12/02/24 15:33 Dose: 30 ml Documented By: CATALINA Calcium Carbonate (Calcium Carbonate 750 Mg Tab.Chew) 750 mg PO Q4H PRN PRN Reason: Heartburn Last Admin: 11/30/24 21:49 Dose: 750 mg Documented By: BRIGID Docusate Sodium (Docusate Sodium 100 Mg Capsule) 100 mg PO BID PRN PRN Reason: Constipation Enoxaparin Sodium (Enoxaparin Sodium 120 Mg/0.8 Ml Syringe) 110 mg SUBCUT Q12H [facility] Last Admin: 12/05/24 12:16 Dose: 110 mg Documented By: JOAN Hydromorphone HCl (Hydromorphone Hcl 2 Mg Tablet) 2 mg PO Q6H PRN PRN Reason: Pain, Moderate(Pain Scale 4-6) Last Admin: 12/05/24 12:20 Dose: 2 mg Documented By: JOAN Ibuprofen (Ibuprofen 400 Mg Tablet) 400 mg PO Q8H [facility] Last Admin: 12/05/24 12:18 Dose: 400 mg Documented By: JOAN Magnesium Hydroxide (Milk Of Magnesia 30 Ml Oral.Susp) 30 ml PO DAILY PRN PRN Reason: Constipation Last Admin: 12/03/24 08:25 Dose: 30 ml Documented By: LAW Melatonin (Melatonin 3 Mg Tablet) 6 mg PO BEDTIME PRN PRN Reason: Insomnia Ondansetron HCl (Ondansetron Hcl 4 Mg/2 Ml Vial) 4 mg IVPUSH Q8H PRN PRN Reason: Nausea and Vomiting Polyethylene Glycol (Polyethylene Glycol 3350 17 Gm Powd.Pack) 17 gm PO DAILY PRN PRN Reason: Constipation Last Admin: 12/03/24 20:12 Dose: 17 gm Documented By: ELISEO Sodium Chloride (0.9 % Sodium Chloride Flush 3 Ml Syringe) 3 ml IVFLUSH [facility] Last Admin: 12/05/24 16:33 Dose: 3 ml Documented By: JOAN Labs 12/05/24 05:05 12/05/24 05:05 Labs: Laboratory Results - last 24 hr 12/05/24 05:05 MCV 86.7 MCH 29.9 MCHC 34.5 RDW 11.9 Plt Count 170 MPV 8.5 L Immature Gran % (Auto) 0.4 Neut % (Auto) 30.1 L Lymph % (Auto) 52.3 H [place] % (Auto) 11.4 H Eos % (Auto) 4.7 H Baso % (Auto) 1.1 Lymph # (Auto) 2.8 [place] # (Auto) 0.6 Eos # (Auto) 0.3 Baso # (Auto) 0.1 Abs Immat Gran (auto) 0.02 Absolute Neuts (auto) 1.6 L Absolute Nucleated RBC 0.000 Nucleated RBC % (auto) 0.0 Anion Gap 13 Estim Creat Clear Calc 86.7 Estimated GFR > 60 Random Glucose 84 Calcium 9.3 Magnesium 2.3 Total Bilirubin 0.8 AST 35 ALT 99 H Alkaline Phosphatase 42 Total Protein 6.9 Albumin 4.1 Assessment and Plan (1) 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 He has previously failed Xarelto and Coumadin. He is currently hemodynamically stable and not hypoxic, but is experiencing significant pain and mild increased work of breathing. Acute pulmonary embolism likely failed oral Xarelto US of the legs show old clot, no new clots Hemodynamically stable, heparin drip dc'd He underwent IVC filter placement on 11/29/2024 Likely significant peripheral pleural pain-pulmonary hygiene and pain control Resume Lovenox 1mg\kg bid To follow with Hematology as outpatient for hypercoagulability Switch to p.o. analgesics for pain management Chest CXR negative for acute process Recurrent VTE despite anticoagulation Given his history of recurrent thrombosis on multiple agents, further workup for hypercoagulable disorders will be initiated Consideration for long-term or alternative anticoagulation strategies will be discussed with hematology as outpatient next month Physical deconditioning PT rec STR placement Insurance has denied STR; family now appealing decision and have a 72-hour window for appeal Code status: Full code Need for inpatient; risk of falls on full anticoagulation pending STR placement. Prior auth denied; now waiting on insurance appeal Quality Stroke Does the patient have a stroke diagnosis?: No VTE Prior VTE?: Yes VTE Risk Level:: Medical - moderate - high VTE Device Contraindication: Treatment Not Indicated VTE Drug Contraindication: N/A - Med Ordered
--- NOTE | 2024-12-05 23:10 | PC.NURSE ---
Pt complaining of 8/10 right lung pain. Not due for po dilaudid at this time so this RN messaged GISELE Gannon who put in a order for morphine. Morphine adminstered per APR. Pt resting comfortably with eyes closed, respirations even and unlabored. Will continue to monitor.
[2024-12-05 23:41] VITALS: BP 126/74; PULSE 50; RESP 16; TEMP 36.1; O2SAT 96
[2024-12-06 07:46] VITALS: BP 138/73; PULSE 52; RESP 18; TEMP 36.2; O2SAT 96
[2024-12-06] MEDS: 0.9 % Sodium Chloride Flush 3 ML SYRINGE IVFLUSH ×3 (09:08→23:19)
[2024-12-06 09:25] LABS: Hematocrit 48.7 % (42.0-52.0); Hemoglobin 16.6 g/dl (14.0-18.0); Imm Gran Abs Auto 0.01 X10*3/uL (0.00-0.03); Imm Gran Pct Auto 0.3 % (0.0-0.4); Lymphocytes Absolute Auto 2.1 X10*3/uL (1.2-4.9); MANUAL DIFF FLAG NO; Mean Corpuscular HGB Conc 34.1 g/dl (31.0-36.0); Mean Corpuscular Hemoglobin 29.7 pg (27.0-33.0); Mean Corpuscular Volume 87.1 fL (80.0-98.0); NRBC Abs Auto 0.000 X10*3/uL (0.0-0.012); NRBC Pct Auto 0.0 /100WBC (0.0-0.2); Platelet Count 149 X10*3/uL (160-400); Red Blood Count 5.59 X10*6/uL (4.60-5.80); White Blood Count 4.0 X10*3/uL (4.8-10.8)
[2024-12-06 09:46] LABS: Alanine Aminotransferase 92 U/L (0-40); Albumin Level 4.0 g/dL (3.5-5.0); Alkaline Phosphatase 43 U/L (39-117); Anion Gap 12 (12-20); Aspartate Amino Transferase 34 U/L (5-37); Blood Urea Nitrogen 18 mg/dL (9-16); Calcium 9.4 mg/dL (8.4-10.2); Carbon Dioxide 28 mmol/L (22-29); Chloride 103 mmol/L (96-108); Creatinine Clr Calc Pharmacy 90.2; Estimated Glomerular Filt Rate > 60; Magnesium 1.9 mg/dL (1.6-2.6); Potassium 4.1 mmol/L (3.3-5.1); Sodium 139 mmol/L (135-145); Total Protein 6.8 g/dL (6.5-8.0)
--- NOTE | 2024-12-06 15:52 | MHC.CM.PN ---
PROVIDER TO DO A PEER TO PEER VIA TELEPHONE WITH INSURANCE, FAMILY AT BEDSIDE AND STATED THEY PLACED A GRIEVANCE WITH THE INSURANCE COMPANY FOR DENYING ADMISSION TO THE SNF. FAMILY PROVIDED A FAX # FOR CLINICALS TO BE SENT. CM FAXED CLINICALS TO AT [phone]. CM TO AWAIT FINAL DECISION FROM INSURANCE
[2024-12-06 16:00] VITALS: BP 130/74; PULSE 55; RESP 19; TEMP 35.8; O2SAT 97
--- NOTE | 2024-12-06 17:37 | HO.PM.IMPN ---
Subjective Subjective Date of Service: 12/06/24 Interval History: Pt reports feels about the same Weak and lightheaded with ambulation Right-sided chest discomfort/heaviness Continuing to wait on insurance appeal Attempted to contact insurance multiple times without success Review of Systems Review of Systems: Yes all other systems are reviewed and are negative Physical Exam Exam: Exam: General: AOx3, no acute distress. Appears weak Resp: CTA bilaterally CVS: S1, S2, RRR GI: +BS, NT, no distention Skin: Warm, dry Neuro: Cranial nerves II-XII grossly intact bilaterally. Motor grossly intact bilaterally. Global weakness Extremities: No edema Psych: Calm and cooperative Vital Signs: Vital Signs: Last Vital Signs Temp 96.4 F L 12/06/24 16:00 Pulse 55 12/06/24 16:00 Resp 19 12/06/24 16:00 BP 130/74 12/06/24 16:00 Pulse Ox 97 12/06/24 16:00 O2 Del Method Room Air 12/06/24 16:00 O2 Flow Rate 2 12/06/24 07:46 BMI result Body Mass Index 33.2 Objective Data Active Medications Acetaminophen (Acetaminophen 325 Mg Tablet) 650 mg PO Q6H PRN PRN Reason: Pain, Mild 1-3,fever,headache Last Admin: 11/29/24 18:09 Dose: 650 mg Documented By: SHAHANA Acetaminophen (Acetaminophen 325 Mg Tablet) 650 mg PO Q6H [facility] Last Admin: 12/06/24 15:35 Dose: 650 mg Documented By: ROBSON Al Hydroxide/Mg Hydroxide (Magnesium Hydrox/Alum Hydrox 30 Ml Oral.Susp) 30 ml PO Q4H PRN PRN Reason: Heartburn Last Admin: 12/02/24 15:33 Dose: 30 ml Documented By: CATALINA Calcium Carbonate (Calcium Carbonate 750 Mg Tab.Chew) 750 mg PO Q4H PRN PRN Reason: Heartburn Last Admin: 11/30/24 21:49 Dose: 750 mg Documented By: BRIGID Docusate Sodium (Docusate Sodium 100 Mg Capsule) 100 mg PO BID PRN PRN Reason: Constipation Enoxaparin Sodium (Enoxaparin Sodium 120 Mg/0.8 Ml Syringe) 110 mg SUBCUT Q12H [facility] Last Admin: 12/06/24 09:07 Dose: 110 mg Documented By: ROBSON Hydromorphone HCl (Hydromorphone Hcl 2 Mg Tablet) 2 mg PO Q6H PRN PRN Reason: Pain, Moderate(Pain Scale 4-6) Last Admin: 12/06/24 11:23 Dose: 2 mg Documented By: ROBSON Magnesium Hydroxide (Milk Of Magnesia 30 Ml Oral.Susp) 30 ml PO DAILY PRN PRN Reason: Constipation Last Admin: 12/03/24 08:25 Dose: 30 ml Documented By: LAW Meclizine HCl (Meclizine Hcl 25 Mg Tablet) 25 mg PO Q8H PRN PRN Reason: Dizziness Melatonin (Melatonin 3 Mg Tablet) 6 mg PO BEDTIME PRN PRN Reason: Insomnia Last Admin: 12/05/24 20:02 Dose: 6 mg Documented By: ASHLEY Ondansetron HCl (Ondansetron Hcl 4 Mg/2 Ml Vial) 4 mg IVPUSH Q8H PRN PRN Reason: Nausea and Vomiting Polyethylene Glycol (Polyethylene Glycol 3350 17 Gm Powd.Pack) 17 gm PO DAILY PRN PRN Reason: Constipation Last Admin: 12/03/24 20:12 Dose: 17 gm Documented By: ELISEO Sodium Chloride (0.9 % Sodium Chloride Flush 3 Ml Syringe) 3 ml IVFLUSH [facility] Last Admin: 12/06/24 15:35 Dose: 3 ml Documented By: ROBSON Labs 12/06/24 09:17 12/06/24 09:17 Labs: Laboratory Results - last 24 hr 12/06/24 09:17 MCV 87.1 MCH 29.7 MCHC 34.1 RDW 11.8 Plt Count 149 L MPV 8.6 L Immature Gran % (Auto) 0.3 Neut % (Auto) 32.3 L Lymph % (Auto) 52.9 H [place] % (Auto) 8.1 Eos % (Auto) 5.6 H Baso % (Auto) 0.8 Lymph # (Auto) 2.1 [place] # (Auto) 0.3 Eos # (Auto) 0.2 Baso # (Auto) 0.0 Abs Immat Gran (auto) 0.01 Absolute Neuts (auto) 1.3 L Absolute Nucleated RBC 0.000 Nucleated RBC % (auto) 0.0 Anion Gap 12 Estim Creat Clear Calc 90.2 Estimated GFR > 60 Random Glucose 117 H Calcium 9.4 Magnesium 1.9 Total Bilirubin 0.7 AST 34 ALT 92 H Alkaline Phosphatase 43 Total Protein 6.8 Albumin 4.0 Assessment and Plan (1) Pulmonary embolism: Status: Acute Plan This is a 49-year-old male with a history of recurrent venous thromboembolism, who developed a pulmonary embolism while compliant with Lovenox. He has previously failed Xarelto and Coumadin. He is currently hemodynamically stable and not hypoxic, but is experiencing significant pain and mild increased work of breathing. Acute pulmonary embolism Likely failed oral Xarelto US of the legs show chronic clot; no acute clots Hemodynamically stable, heparin drip dc'd He underwent IVC filter placement on 11/29/2024 Continue to experience right-sided pleuritic chest pain; analgesics for pain management Continue Lovenox 1mg\kg bid To follow with Hematology as outpatient for hypercoagulability workup Switch to p.o. analgesics for pain management Chest CXR negative for acute process Recurrent VTE despite anticoagulation Given his history of recurrent thrombosis on multiple agents, further workup for hypercoagulable disorders will be initiated Consideration for long-term or alternative anticoagulation strategies will be discussed with hematology as outpatient next month Physical deconditioning Weakness, dizziness PT rec STR placement Insurance has denied STR; family now appealing decision and have a 72-hour window for appeal Will trial meclizine p.r.n. for dizziness Code status: Full code Need for inpatient; risk of falls on full anticoagulation pending STR placement. Prior auth denied; now waiting on insurance appeal Quality Stroke Does the patient have a stroke diagnosis?: No VTE Prior VTE?: Yes VTE Risk Level:: Medical - moderate - high VTE Device Contraindication: Treatment Not Indicated VTE Drug Contraindication: N/A - Med Ordered
[2024-12-07] VITALS: BP 124/75; PULSE 58; RESP 18; TEMP 36.1; O2SAT 97
[2024-12-07 05:43] LABS: MANUAL DIFF FLAG NO
[2024-12-07 05:48] LABS: Hematocrit 47.3 % (42.0-52.0); Hemoglobin 16.5 g/dl (14.0-18.0); Imm Gran Abs Auto 0.01 X10*3/uL (0.00-0.03); Imm Gran Pct Auto 0.2 % (0.0-0.4); Lymphocytes Absolute Auto 2.7 X10*3/uL (1.2-4.9); Mean Corpuscular HGB Conc 34.9 g/dl (31.0-36.0); Mean Corpuscular Hemoglobin 30.4 pg (27.0-33.0); Mean Corpuscular Volume 87.3 fL (80.0-98.0); NRBC Abs Auto 0.000 X10*3/uL (0.0-0.012); NRBC Pct Auto 0.0 /100WBC (0.0-0.2); Platelet Count 161 X10*3/uL (160-400); Red Blood Count 5.42 X10*6/uL (4.60-5.80); White Blood Count 4.9 X10*3/uL (4.8-10.8)
[2024-12-07 06:08] LABS: Alanine Aminotransferase 86 U/L (0-40); Albumin Level 4.1 g/dL (3.5-5.0); Alkaline Phosphatase 42 U/L (39-117); Anion Gap 13 (12-20); Aspartate Amino Transferase 34 U/L (5-37); Blood Urea Nitrogen 17 mg/dL (9-16); Calcium 9.2 mg/dL (8.4-10.2); Carbon Dioxide 27 mmol/L (22-29); Chloride 103 mmol/L (96-108); Creatinine Clr Calc Pharmacy 94.9; Estimated Glomerular Filt Rate > 60; Magnesium 2.0 mg/dL (1.6-2.6); Potassium 4.1 mmol/L (3.3-5.1); Sodium 139 mmol/L (135-145); Total Protein 6.7 g/dL (6.5-8.0)
[2024-12-07 07:37] VITALS: BP 118/72; PULSE 52; RESP 16; TEMP 36.3; O2SAT 97
[2024-12-07] MEDS: 0.9 % Sodium Chloride Flush 3 ML SYRINGE IVFLUSH ×2 (08:19→15:12)
--- NOTE | 2024-12-07 13:06 | MHC.CM.PN ---
pt dcing today to [facility] at 4:30 pts denial was overturned by [place]
--- NOTE | 2024-12-07 15:40 | PM.DS ---
DS: Providers Provider Date of Service: 12/07/24 Date of admission: 11/28/24 08:21 Date of discharge: 12/07/24 Primary care physician: Xochilt Campbell MD Consults: 11/28/24 10:07 Consult to Hematology / Oncology Routine Consulting Provider: [facility] Oncology/Hematology Reason for consultation: PE 11/28/24 10:39 Consult to Cardiology Routine Consulting Provider: [facility] Reason for consultation: chest pain, positive stress in past DS: Diagnosis Discharge Diagnosis (1) Pulmonary embolism: Status: Acute DS: Summary Hospital Course Hospital Course: From admission HPI: Date of Service: 11/29/24 Chief Complaint: chest pain and sob This is a 49-year-old male with a history of recurrent thrombosis, including left lower extremity thrombosis since 1999 and right lower extremity deep vein thrombosis in 2006. He has experienced recurrent blood clots whenever anticoagulation was discontinued. He previously developed a clot while on Xarelto, and most recently, he has been compliant with Lovenox, yet still developed a new clot. He presented with chest pain and shortness of breath. A CT scan performed on 11/27/24 confirmed a pulmonary embolism. He is currently hemodynamically stable and not hypoxic, but is experiencing significant pain. Given his history of clot formation despite compliance with both Lovenox and Xarelto, he is now being started on IV heparin. Hospital course Pt was admitted to the hospital after outpatient CT on 11/27 was suggestive embolism. Pt was experiencing significant pleuritic chest pain, and was started on IV heparin which was soon transitioned back to his therapeutic Lovenox. Ultrasounds of lower extremities were negative for new thrombosis, but showed chronic clots. Given that pt developed PE while on Lovenox, and has a hx of recurrent VTE on multiple anticoagulants, pt underwent placement of an IVC filter by vascular surgery on 11/29/2024. Was seen and evaluated by respiratory and did not qualify for home oxygen. Pt was initially cleared for discharge on 12/01 and set to home with services, but pt had significant weakness and dizziness secondary to physical deconditioning and hospital stay. Pt was seen and evaluated by Physical therapy who found pt unsafe to be discharged home and recommended short-term rehab. Patient's hospital stay was further prolonged while awaiting insurance prior authorization which was ultimately denied. Family then successfully appealed. Pt should continue therapeutic Lovenox 100 mg subQ b.i.d., will also be prescribed a short course of p.o. analgesics. Pt should follow up with Dr. Deshpande in Hematology for outpatient hypercoagulability workup and discussion about long-term anticoagulation use. He should continue all of his other home medications. Additional details concerning hospital stay as indicated below. Acute pulmonary embolism While on therapeutic Lovenos US of the legs show chronic clot; no acute clots Hemodynamically stable, heparin drip dc'd He underwent IVC filter placement on 11/29/2024 Continue to experience right-sided pleuritic chest pain; analgesics for pain management Continue Lovenox 1mg\kg bid To follow with Hematology as outpatient for hypercoagulability workup Switch to p.o. analgesics for pain management Chest CXR negative for acute process Recurrent VTE despite anticoagulation Given his history of recurrent thrombosis on multiple agents, further workup for hypercoagulable disorders will be initiated Consideration for long-term or alternative anticoagulation strategies will be discussed with hematology as outpatient next month Physical deconditioning Weakness, dizziness PT rec STR placement Insurance has denied STR; family now appealing decision and have a 72-hour window for appeal Pt declined trial of meclizine p.r.n. for dizziness Time Attestation Discharge Coordination Time (in mins): 35 Quality: Safe Use of Opioids Does Pt have an Active Cancer Diagnosis on the Problem List?: No Quality: Stroke Does the patient have a stroke diagnosis?: No Physical Exam Vital Signs: Vital Signs: Last Vital Signs Temp 97.4 F 12/07/24 07:37 Pulse 52 12/07/24 07:37 Resp 16 12/07/24 07:37 BP 118/72 12/07/24 07:37 Pulse Ox 97 12/07/24 07:37 O2 Del Method Room Air 12/07/24 07:37 O2 Flow Rate 2 12/07/24 00:00 BMI result Body Mass Index 33.2 DS: Data Data Completed and Pending Labs on day of discharge: Laboratory Results - last 24 hr 12/07/24 05:14 WBC 4.9 RBC 5.42 Hgb 16.5 Hct 47.3 MCV 87.3 MCH 30.4 MCHC 34.9 RDW 11.8 Plt Count 161 MPV 8.8 L Immature Gran % (Auto) 0.2 Neut % (Auto) 28.4 L Lymph % (Auto) 54.2 H [place] % (Auto) 11.5 H Eos % (Auto) 4.9 H Baso % (Auto) 0.8 Lymph # (Auto) 2.7 [place] # (Auto) 0.6 Eos # (Auto) 0.2 Baso # (Auto) 0.0 Abs Immat Gran (auto) 0.01 Absolute Neuts (auto) 1.4 L Absolute Nucleated RBC 0.000 Nucleated RBC % (auto) 0.0 Sodium 139 Potassium 4.1 Chloride 103 Carbon Dioxide 27 Anion Gap 13 BUN 17 H Creatinine 1.15 Estim Creat Clear Calc 94.9 Estimated GFR > 60 Random Glucose 85 Calcium 9.2 Magnesium 2.0 Total Bilirubin 0.7 AST 34 ALT 86 H Alkaline Phosphatase 42 Total Protein 6.7 Albumin 4.1 Discharge Plan Discharge Anticipated Discharge Date/Time: 12/07/24 15:12 Patient Disposition: Xfer SNF Discharge Diagnosis: Acute PE in a patient who has per thrombosis Referrals: [facility] [Other] - 1 Week Xochilt Vides MD [Primary Care Provider, Internal Medicine] - 1 Week Discharge Medications: New acetaminophen 325 mg Tablet 650 mg PO Q6H PRN (Reason: Pain, Mild 1-3,Fever,Headache) 30 Days Qty: 30 3RF ibuprofen 400 mg Tablet 400 mg PO Q8H 30 Days Qty: 90 3RF Continued (DME) EMS Anti-Embolism Stocking Misc Qty: 2 1RF Rx Instructions: As Directed metoprolol succinate [Toprol XL] 25 mg tablet extended release 24 hr 25 mg PO BEDTIME enoxaparin [Lovenox] 120 mg/0.8 mL Syringe 120 mg SUBCUT Q12H Qty: 60 3RF nitroglycerin 0.4 mg tablet, sublingual 0.4 mg sublingual Q5M PRN (Reason: chest pain) Qty: 30 5RF Rx Instructions: do not exceed 3 doses per episode Discharge Orders: Discharge Order (Routine); Ordered 12/07/24 Ordered By: Deysi Smallwood Diet: Advance to usual diet Activity on Discharge: As tolerated Stand Alone Forms: Patient Portal Discharge page, Work/School Release Print Language: Kenyan Activity Restrictions/Additional Instructions: Definition: Pleuritic chest pain is?a sharp, stabbing pain that occurs when the pleura, the thin membranes that line the lungs and chest cavity, become inflamed.Blood clots:?Pulmonary embolism Symptoms:? Sharp, stabbing pain in the chest that worsens with deep breaths, coughing, or sneezing Pain that may radiate to the back, shoulder, or neck Shortness of breath Fever Cough Diagnosis: Physical exam: The doctor will listen to your chest for a rubbing sound called a pleural friction rub.? Chest X-ray: To rule out underlying conditions, such as pneumonia or a tumor? Blood tests: To check for infections or autoimmune diseases? Treatment:? Rest Pain relievers, such as ibuprofen or acetaminophen Anti-inflammatory medications, such as corticosteroids Antibiotics if the pain is caused by an infection Surgery may be required in rare cases, such as for a pleural effusion (fluid buildup in the pleural space) Prognosis:? Most cases of pleuritic chest pain resolve within a few weeks with treatment.?However, the prognosis depends on the underlying cause.?? Care Plan Goals: Pulmonary hygeine Pleuritic chest pain - symptomaticrx Acapella valve, incentive spirometer CPAP Patient continued to complain of chest pain although he was on maximal medical therapy Health Concerns: Consulted Hematology, vascular surgery, Chest pain --pleuritic in etiology Symptomatic management Reassurances were given Plan of Treatment: You were admitted to the hospital flu pleuritic chest pain in the setting of pulmonary embolism that was found during an outpatient CT scan. You were initially treated with IV heparin which was then transitioned to therapeutic Lovenox. Your pain was controlled with both IV and p.o. analgesics. On 11/29/2024 you underwent an IVC filter placement by vascular surgery. Ultrasound of bilateral legs was negative for acute thrombosis. You were seen and evaluated by Physical therapy who recommended short-term rehab placement due to weakness, dizziness, and generalized physical deconditioning due to prolonged hospital stay. Your hospital stay was initially prolonged due to waiting for insurance authorization and then prolonged further when they denied your case and you and your family successfully appealed. You will now be discharged to short-term rehab. -- continue therapeutic Lovenox 100 mg subQ twice a day -- you will be prescribed analgesics for pain management -- follow up with Dr. Deshpande in Hematology for outpatient hypercoagulability workup and discussion about long-term anticoagulation use -- continue all of your other home medications Assessment: See above
== END 2024-12-07 17:11 | disposition skilled nursing facility (03) | DRG 134 ==
LOC: HO.ED 08:13 → HO.EDOVER 08:21 → HO.S3 12:56
PROVIDERS: Student in an Organized Health Care Education/Training Program; Surgery Vascular Surgery; Admitting Provider Internal Medicine; Emergency Provider Emergency Medicine; PCP Internal Medicine; Visit Provider Student in an Organized Health Care Education/Training Program
PROC: 06H03DZ Insertion of Intraluminal Device into Inferior Vena Cava, Percutaneous Approach (ICD-10-PCS; principal; 2024-11-29 11:30)
DX: I26.99 Other pulmonary embolism without acute cor pulmonale (principal); I82.513 Chronic embolism and thrombosis of femoral vein, bilateral; I82.533 Chronic embolism and thrombosis of popliteal vein, bilateral; G47.33 Obstructive sleep apnea (adult) (pediatric); Z79.01 Long term (current) use of anticoagulants; Z79.899 Other long term (current) drug therapy
CPT/HCPCS: 36415; 37191; 71045; 80053; 82947; 83735; 84484; 85025; 85610; 85730; 93005; 93970; 97110; 97112; 97116; 97162; 97530; 97535; 99152; 99153; 99285; C1769; C1880; C1894; J1171; J1644; J1650; J2250; J2270; J3010; Q9967

== ENCOUNTER 2024-11-28 08:21 | Outpatient (BNV) | payer BC, SELFPAY | END 2024-12-03 16:10 | PROVIDERS: Admitting Provider Internal Medicine; Emergency Provider Emergency Medicine; PCP Internal Medicine; Visit Provider Radiology Diagnostic Radiology | DX: R07.9 Chest pain, unspecified (principal) | CPT/HCPCS: 71045 ==

== ENCOUNTER 2024-11-28 08:21 | Outpatient (BNV) | payer BC, SELFPAY | END 2024-11-28 11:09 | PROVIDERS: Admitting Provider Internal Medicine; Emergency Provider Emergency Medicine; PCP Internal Medicine; Visit Provider Radiology Diagnostic Radiology | DX: R06.02 Shortness of breath (principal); Z86.718 Personal history of other venous thrombosis and embolism | CPT/HCPCS: 93970 ==

== ENCOUNTER 2024-11-28 08:21 | Outpatient (BNV) | payer BC, SELFPAY | END 2024-11-29 01:35 | PROVIDERS: Admitting Provider Internal Medicine; Emergency Provider Emergency Medicine; PCP Internal Medicine; Visit Provider Internal Medicine Cardiovascular Disease | DX: R00.1 Bradycardia, unspecified (principal) | CPT/HCPCS: 93010 ==

== ENCOUNTER → 2024-11-28 08:21 | Outpatient (BNV) | payer BC, SELFPAY | PROVIDERS: Admitting Provider Internal Medicine; Emergency Provider Emergency Medicine; PCP Internal Medicine; Visit Provider Internal Medicine | DX: I82.513 Chronic embolism and thrombosis of femoral vein, bilateral (principal); R07.9 Chest pain, unspecified | CPT/HCPCS: 99253 ==

== ENCOUNTER → 2024-11-28 08:21 | Outpatient (BNV) | payer BC, SELFPAY | PROVIDERS: Admitting Provider Internal Medicine; Emergency Provider Emergency Medicine; PCP Internal Medicine; Visit Provider Surgery Vascular Surgery | DX: I26.99 Other pulmonary embolism without acute cor pulmonale (principal) | CPT/HCPCS: 99232 ==

== ENCOUNTER → 2024-11-28 08:21 | Outpatient (BNV) | payer BC, SELFPAY | PROVIDERS: Admitting Provider Internal Medicine; Emergency Provider Emergency Medicine; PCP Internal Medicine; Visit Provider Internal Medicine Cardiovascular Disease | DX: R00.1 Bradycardia, unspecified (principal) | CPT/HCPCS: 93010 ==

== ENCOUNTER → 2024-11-28 08:21 | Outpatient (BNV) | payer BC, SELFPAY | PROVIDERS: Admitting Provider Internal Medicine; Emergency Provider Emergency Medicine; PCP Internal Medicine; Visit Provider Nurse Practitioner Family | DX: I26.99 Other pulmonary embolism without acute cor pulmonale (principal) | CPT/HCPCS: 99232; 99233; 99239; G0180 ==

== ENCOUNTER 2024-12-25 13:59 | Outpatient (AMB) | payer BC, SELFPAY ==
[2024-12-25 14:20] VITALS: BP 124/70; PULSE 57; BMI 32.6
--- NOTE | 2024-12-25 14:20 | A.OFFVIS_ITS ---
Vital Signs 12/25/24 14:20 Height 5 ft 11 in Weight 233 lb 11.04 oz BMI 32.6 BP 124/70 Blood Pressure Location Lt brachial Position Sitting Pulse 57 Pulse Source Pulse Oximeter Intake Visit Reasons: [facility] DC Follow up Allergies oxycodone (Percocet) Adverse Reaction (Unknown, Verified 12/20/24 10:48) nausea Medication List - Last Reconciled 12/25/24 by Jelani Marcus MD acetaminophen 650 mg (2 x 325 mg) PO Q6H PRN 30 days comp.stocking,thigh,long,large (EMS Anti-Embolism Stocking) As Directed enoxaparin (Lovenox) 120 mg (0.8 mL) subcut Q12H ibuprofen 400 mg PO Q8H 30 days metoprolol succinate ER (Toprol XL) 25 mg PO BEDTIME nitroglycerin 0.4 mg sublingual Q5M PRN oxycodone 5 mg PO DAILY PRN HPI Comments Details: Josh returns for follow-up. Recently seen in consultation regarding chest pains. He has had this for quite some time, going back a year or so. History of recurrent DVTs. He was on Xarelto for a while but more recently put on Lovenox. He had an exercise stress test during which time he developed chest pain but no EKG changes. Perfusion component reported abnormal. Subsequently, he was seen in the clinic and we ordered a chest CTA for pulmonary embolism which was borderline positive. He was then hospitalized and it appears that he underwent IVC filter through vascular surgery. He still has these chest pains which are very pleuritic in nature and happen mainly when he is breathing, twisting, turning extra. Nothing clearly exertional. No previous history of any coronary disease or myocardial infarction or cardiomyopathy. Obesity. Has obstructive sleep apnea and has CPAP. 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 DVT, bilateral lower limbs Chest pain Heartburn Colon cancer screening Neck pain Nocturnal hypoxemia Obesity (BMI 30-39.9) History of renal failure Hypercholesteremia History of DVT (deep vein thrombosis) JESSICA (obstructive sleep apnea) Surgical History History of hip surgery H/O knee surgery History of back surgery H/O kidney removal Family History Mother Essential hypertension Father CAD (coronary artery disease) Maternal Grandfather Cancer Social History Household Members: Spouse Housing: House Are you a primary child care center assistant director to a significant other at home: No Do you presently have visiting nurse or other home services: No Alcohol intake: current Alcohol intake frequency: does not drink Alcohol type: beer Patient Tobacco Use Status: Never used Tobacco e-Cigarette/Vaping Use: Never Used Second Hand Smoke Exposure: No service: No Current occupational status: employed Current occupational exposures/hazards: No Cognitive needs: No Hearing needs: No Vision needs: Yes Review of Systems Const Denies weakness ENT Denies dizziness Card Reports chest pain, Reports chest pain at rest, Reports chest pain with activity, Denies syncope, Denies rapid heart rate, Denies pedal edema, Denies edema, Denies leg edema, Denies lightheadedness, Denies palpitations, Denies dyspnea, Denies dyspnea on exertion and Denies orthopnea Resp Denies cough, Denies dyspnea and Denies dyspnea on exertion GI Denies hematochezia and Denies change in stool character Musc Denies abnormal gait, Denies muscle cramps, Denies muscle weakness, Denies numbness, Denies radiating pain into limb and Denies tingling Neuro Denies abnormal gait, Denies dizziness, Denies syncope, Denies numbness, Denies tingling and Denies weakness Endo Denies palpitations Physical Exam Vital Signs: Last Vital Signs Pulse 57 12/25/24 14:20 BP 124/70 12/25/24 14:20 BMI result Body Mass Index 32.6 Const General: comfortable and no acute distress Orientation/consciousness: patient oriented x3 HEENT Other: Unremarkable Head: Yes normal to inspection Neck Neck: Yes normal visual inspection Chest Chest palpation & inspection: normal inspection of the chest Resp Auscultation: clear to auscultation bilaterally Cardio Palpation: normal PMI Heart sounds: S1 normal heart sound present, S2 normal heart sound present, no gallops, no murmurs and no rubs GI Palpation (GI): Soft to palpation Back/Spine/Pelvis Other: unremarkable Skin General skin exam: no rashes or lesions noted Neuro General: patient oriented x3 Extrem General: Yes normal to inspection Psych Mental Status: mental status grossly normal Assessment & Plan Assessment & Plan (1) Chest pain: Code(s): R07.9 - Chest pain, unspecified Category: Medical (2) Abnormal stress test: Code(s): R94.39 - Abnormal result of other cardiovascular function study Category: Medical Plan Pertinent studies reviewed. In the recent lower extremity ultrasound, bilateral old clots from proximal superficial femoral vein to popliteal veins. In the chest CTA, there is a question of posterior right lower lobe pulmonary artery embolism. During the exercise stress test, she was able to exercise for 11.1 METS on Gilberto protocol and reached target heart rate. Developed 8/10 chest tightness, shortness of breath and dizzy. No EKG evidence of ischemia. Perfusion component with ischemia reported in the distal anterior/anterolateral wall. Overall, his symptoms are highly suggestive of pleuritic pain related to pulmonary embolism. However, the abnormal stress test also warrants further evaluation. We discussed about this at length and we agreed on diagnostic catheterization to be scheduled in the near future. With regard to the Lovenox, we will check with Interventional regarding when he needs to stopped that. Otherwise, current symptoms are mainly related to thromboembolic disease and not anginal sounding but we will clarify coronary findings on catheterization and plan accordingly. Patient agrees with the above. If indeed there is no significant CAD to suggest angina, can stop the beta- blockers. Otherwise, anticoagulation per Hematology. Avoid any strenuous physical activity that brings on chest pains. Seek emergency care as needed. Coding Level of Care Code Est Pt Level 4 (69519) Complex EM visit Add On G2211 Diagnoses Chest pain R07.9 Abnormal stress test R94.39
== END 2024-12-25 14:37 | disposition home or self-care (01) ==
LOC: HO.HCS 14:00
PROVIDERS: PCP Internal Medicine; Visit Provider Internal Medicine
DX: R07.9 Chest pain, unspecified (principal); R94.39 Abnormal result of other cardiovascular function study
CPT/HCPCS: 99214

== ENCOUNTER 2025-01-11 06:13 | Outpatient (REF) | payer BC, SELFPAY ==
[2025-01-11 06:21] LABS: MANUAL DIFF FLAG NO
[2025-01-11 06:26] LABS: Hematocrit 46.6 % (42.0-52.0); Hemoglobin 15.9 g/dl (14.0-18.0); Imm Gran Abs Auto 0.02 X10*3/uL (0.00-0.03); Imm Gran Pct Auto 0.3 % (0.0-0.4); Lymphocytes Absolute Auto 3.1 X10*3/uL (1.2-4.9); Mean Corpuscular HGB Conc 34.1 g/dl (31.0-36.0); Mean Corpuscular Hemoglobin 30.1 pg (27.0-33.0); Mean Corpuscular Volume 88.1 fL (80.0-98.0); NRBC Abs Auto 0.000 X10*3/uL (0.0-0.012); NRBC Pct Auto 0.0 /100WBC (0.0-0.2); Platelet Count 182 X10*3/uL (160-400); Red Blood Count 5.29 X10*6/uL (4.60-5.80); White Blood Count 6.0 X10*3/uL (4.8-10.8)
[2025-01-11 06:41] LABS: Alanine Aminotransferase 100 U/L (0-40); Albumin Level 4.3 g/dL (3.5-5.0); Alkaline Phosphatase 48 U/L (39-117); Anion Gap 11 (12-20); Aspartate Amino Transferase 38 U/L (5-37); Blood Urea Nitrogen 13 mg/dL (9-16); Calcium 9.4 mg/dL (8.4-10.2); Carbon Dioxide 28 mmol/L (22-29); Chloride 107 mmol/L (96-108); Estimated Glomerular Filt Rate 53; Potassium 4.2 mmol/L (3.3-5.1); Sodium 142 mmol/L (135-145); Total Protein 7.3 g/dL (6.5-8.0)
[2025-01-11 06:45] LABS: D Dimer High Sensitivity < 150 NG/ML
== END 2025-01-11 06:14 | disposition home or self-care (01) ==
LOC: HO.LAB 06:13
PROVIDERS: Internal Medicine Medical Oncology; PCP Internal Medicine; Visit Provider Internal Medicine
DX: I82.403 Acute embolism and thrombosis of unspecified deep veins of lower extremity, bilateral (principal)
CPT/HCPCS: 36415; 80053; 85025; 85379

== ENCOUNTER → 2025-01-17 23:59 | Outpatient (BNV) | payer BC, SELFPAY | PROVIDERS: PCP Internal Medicine; Visit Provider Internal Medicine Cardiovascular Disease | DX: I25.118 Atherosclerotic heart disease of native coronary artery with other forms of angina pectoris (principal) | CPT/HCPCS: 92928; 93458; 99152 ==

== ENCOUNTER 2025-02-08 08:29 | Outpatient (AMB) | payer BC, SELFPAY ==
[2025-02-08 08:31] VITALS: BP 120/70; PULSE 51; BMI 34.0
--- NOTE | 2025-02-08 08:31 | MHC.OFFVIS ---
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 Accompanied by: Spouse Allergies oxycodone (Percocet) Adverse Reaction (Unknown, Verified 02/08/25 08:34) nausea Medication List - Last Reconciled 02/08/25 by NATACHA Giles acetaminophen 650 mg (2 x 325 mg) PO Q6H PRN 30 days aspirin 81 mg PO DAILY comp.stocking,thigh,long,large (EMS Anti-Embolism Stocking) As Directed enoxaparin (Lovenox) 120 mg (0.8 mL) subcut Q12H ibuprofen 400 mg PO Q8H PRN metoprolol succinate ER (Toprol XL) 25 mg PO BEDTIME nitroglycerin 0.4 mg sublingual Q5M PRN oxycodone 5 mg PO DAILY PRN ticagrelor (Brilinta) 90 mg PO BID HPI HPI s/p cath: Details: The patient is a 49 year old male presenting for follow up post cardiac catheterization for chest discomfort. He was evaluated for exertional chest discomfort, and a recent exercise stress test was notable for chest discomfort without EKG changes, but an abnormal nuclear perfusion scan showed ischemia in the distal anterior and distal anterolateral carvajal. A CTA of the chest on 11/27/2024 revealed coronary artery calcifications. A cardiac catheterization on 01/17/2025 demonstrated a 90% stenosis in the mid-left anterior descending (LAD) artery and a 100% stenosis of the first septal artery, for which a stent was placed in the LAD. Since the procedure, he has experienced some improvement in his breathing but continues to have episodes of chest tightness, which feel similar to his pre-procedure symptoms and can occur at rest. He reports using a nitroglycerin pill on one occasion, which provided relief. He also describes new-onset palpitations, characterized as fluttering or a skipping, irregular heartbeat that occurs intermittently. His pertinent medical history includes a history of blood clots, which resulted in a pulmonary embolism. He was previously on Coumadin and Xarelto and is currently on Lovenox injections. He has a history of dyslipidemia, with triglycerides of 443 mg/dL in July 2024, and mildly elevated liver function tests. He is not on a statin, having refused it in the past due to concerns about its effects on the liver. An echocardiogram from 11/23/2024 showed a normal ejection fraction of 55-60% with no regional wall motion abnormalities. His current medications include Lovenox, aspirin, Brilinta, and metoprolol. He has had mild bleeding complications from his anticoagulant therapy, including significant bruising and bleeding from injection sites and an episode of epistaxis. present. [facility] Medical History (Updated 02/08/25 @ 09:52 by Kitty Paz, SKI PATROLLER-C) Pulmonary embolism Pleuritic chest pain Chronic bilateral deep vein thrombosis (DVT) of femoral veins DVT, bilateral lower limbs Chest pain Heartburn Colon cancer screening Neck pain Nocturnal hypoxemia Obesity (BMI 30-39.9) History of renal failure Hypercholesteremia History of DVT (deep vein thrombosis) JESSICA (obstructive sleep apnea) Surgical History (Updated 02/08/25 @ 09:49 by Kitty Paz NP-C) History of hip surgery H/O knee surgery History of back surgery H/O kidney removal Family History Mother Essential hypertension Father CAD (coronary artery disease) Maternal Grandfather Cancer Social History Household Members: Spouse Housing: House Are you a primary child day care center worker to a significant other at home: No Do you presently have visiting nurse or other home services: No Alcohol intake: current Alcohol intake frequency: does not drink Alcohol type: beer Patient Tobacco Use Status: Never used Tobacco e-Cigarette/Vaping Use: Never Used Second Hand Smoke Exposure: No service: No Current occupational status: employed Current occupational exposures/hazards: No Cognitive needs: No Hearing needs: No Vision needs: Yes Review of Systems Const All systems reviewed & are unremarkable except as noted in HPI and below Denies daytime sleepiness, Denies difficulty sleeping, Denies snoring, Denies stops breathing during sleep and Denies weakness Card Details: heart palpitations Reports chest pain, Reports chest pain at rest, Denies chest pain with activity, Reports rapid heart rate, Denies irregular heart rhythm, Denies claudication, Denies leg edema, Denies lightheadedness, Reports palpitations, Reports dyspnea, Denies dyspnea on exertion, Denies orthopnea, Denies paroxysmal nocturnal dyspnea and Denies slow heart rate Resp Denies cough, Reports dyspnea, Denies dyspnea on exertion and Denies snoring GI Reports no additional complaints, Denies hematochezia, Denies change in stool character and Denies dyspepsia Musc Denies abnormal gait, Denies muscle weakness and Denies numbness Neuro Denies abnormal gait, Denies numbness and Denies weakness Endo Reports palpitations Physical Exam Vital Signs: Last Vital Signs Pulse 51 02/08/25 08:31 BP 120/70 02/08/25 08:31 BMI result Body Mass Index 34.0 Const General: cooperative, healthy appearing, comfortable and no acute distress Orientation/consciousness: patient oriented x3 Neck Neck: Yes normal visual inspection Resp Effort & Inspection: normal respiratory effort Auscultation: clear to auscultation bilaterally, no crackles, no rales, no rhonchi and no wheezes Cardio Rate: regular rate Rhythm: regular rhythm Heart sounds: S1 normal heart sound present, S2 normal heart sound present, no gallops, no murmurs and no rubs Neuro General: patient oriented x3 Extrem General: Yes normal to inspection and No no pedal edema Psych Appearance: grossly normal Mental Status: mental status grossly normal Speech and movement: Normal speech and movement present Assessment & Plan Assessment & Plan (1) Coronary artery arteriosclerosis: Code(s): I25.10 - Atherosclerotic heart disease of [place] coronary artery without angina pectoris Category: Medical Plan: Confirmed coronary artery disease on recent cardiac catheterization. Significant LAD stenosis requiring angioplasty and stent, 1st septal occlusion requiring angioplasty. Still having mild episodes of chest tightness, occurring mostly at rest. Since his procedure his symptom has improved in severity and is not occurring with exertion and shortness of breath with activity has improved. Will add low-dose amlodipine as 2nd antianginal. Unable to titrate metoprolol due to low resting heart rate. Continue aspirin for at least 1 month and Brilinta uninterrupted for at least 1 year. Continue Lovenox. First will check a fasting lipid and liver panel. He has history of elevated LFTs. May need GI referral. Going forward will consider start of statin therapy if not contraindicated. Will start cardiac rehab. Signs and symptoms of angina reviewed. Cardiology follow-up 2 months, sooner if needed. (2) Stented coronary artery: Comment: 01/17/2025, lad stent Code(s): Z95.5 - Presence of coronary angioplasty implant and graft Category: Surgical (3) S/P cardiac cath: Comment: 01/17/2025. Right dominant circulation, no significant RCA disease, mild disease in the proximal left circumflex, severe mid LAD stenosis, successful PCI to the LAD with angioplasty and stent, large septal branch within the lesion occluded and angioplasty done. Code(s): Z98.890 - Other specified postprocedural states Category: Surgical Plan: Right radial catheterization site healing well (4) Mixed hyperlipidemia: Code(s): E78.2 - Mixed hyperlipidemia Category: Medical Plan: [place] LDL goal less than 70. Will check fasting lipids and liver panel. (5) Elevated liver enzymes: Code(s): R74.8 - Abnormal levels of other serum enzymes Category: Medical Plan: As above (6) Obesity (BMI 30.0-34.9): Code(s): E66.9 - Obesity, unspecified Category: Medical (7) History of DVT (deep vein thrombosis): Code(s): Z86.718 - Personal history of other venous thrombosis and embolism Category: Medical Plan: History of DVT, PE. Follows with Dr. Deshpande. Currently on Lovenox (8) JESSICA (obstructive sleep apnea): Comment: HE HAS RATHER SEVERE OBSTRUCTIVE SLEEP APNEA WITH NOCTURNAL HYPOXEMIA. Code(s): G47.33 - Obstructive sleep apnea (adult) (pediatric) Category: Medical Plan: History of sleep apnea, wear CPAP. (9) Palpitation: Code(s): R00.2 - Palpitations Category: Medical Plan: Report of heart palpitations which is new for him. Like his heart is skipping. Will check Holter monitor. Plan I explained to the patient that the cardiac catheterization found a significant, 90% blockage in his main heart artery (the LAD), which was successfully opened with balloons and a stent. We discussed his ongoing chest tightness and new palpitations, and I informed him that I will consult with Dr. Marcus, his soil and plant scientist, to determine if these symptoms are expected given his coronary anatomy. I will add a low dose of amlodipine to see if this helps his symptom. For his heart palpitations we will check a holter monitor to assess for arrythmia. We reviewed the critical need for a cholesterol-lowering medication (statin) to prevent new blockages from forming, including inside the stent. I explained that we will first check updated blood work for his cholesterol and liver function before deciding on the safest medication, and that a referral to a GI specialist may be necessary if his liver tests remain elevated. We discussed his antithrombotic medications, confirming the plan to continue aspirin for one month post-procedure and Brilinta for one year. I emphasized that he must remain on at least two antiplatelet/anticoagulant agents and that if his kiln transfer operator stops the Lovenox, he would need to resume aspirin with Brilinta. I addressed the bleeding he has experienced, providing guidance on managing injection sites with pressure and using saline spray for his nose to prevent cracking and bleeding. I advised him to watch for signs of more serious bleeding, such as blood in his stool or urine. I placed an order for cardiac rehabilitation, explaining it is an option to help him regain confidence and build up his activity level safely, and he can decide whether to participate. I instructed him that if he chooses to exercise on his own, he must start slowly and progressively, stopping and informing us if any exertional symptoms develop. We will have a follow-up visit in approximately two months, and I will contact him by phone with his lab results before then. Orders: Orders ECG 5 day holter monitor Today NATACHA Giles R00.2 - Palpitations Cardiac Rehab Today NATACHA Giles I25.10 - Atherosclerotic heart disease of [place] coronary artery without angina pectoris, Z95.5 - Presence of coronary angioplasty implant and graft, Z98.890 - Other specified postprocedural states Lipid Panel Today NATACHA Giles E78.2 - Mixed hyperlipidemia Liver Panel Today NATACHA Giles E78.2 - Mixed hyperlipidemia Medications: New amlodipine 2.5 mg PO DAILY 30 tabs 2RF NATACHA Giles Changed From ibuprofen 400 mg PO Q8H 30 days 90 tabs 3RF To ibuprofen 400 mg PO Q8H PRN Jami Polanco MD Patient Instructions: - Continue taking your medications as prescribed, including Brilinta, metoprolol, and your Lovenox injections. - You will continue taking aspirin for one month from the date of your heart procedure (until approximately February 17), after which you can stop it. - You will need to remain on Brilinta for one year. It is very important to stay on two blood-thinning medicines, so if your other doctor stops the Lovenox shots, you will need to go back on aspirin along with the Brilinta. - For bleeding at your injection sites, apply firm pressure until it stops. To make injections less painful and reduce bruising, try injecting into fatty areas like your stomach instead of your leg muscles. - To help prevent nosebleeds, use an [id number] saline (salt water) nasal spray to keep the inside of your nose moist. - Please go to the lab for the blood work we ordered to check your cholesterol and liver. - We have sent a referral for cardiac rehab. They will call you to schedule. This program can help you return to exercise safely. - Call us or seek immediate medical attention if you have chest discomfort that is not improving with rest or NTG or if you notice signs of serious bleeding, such as black or bloody stools, red or pink urine, or if you vomit blood. - We have scheduled a follow-up appointment for you in our office in about two months. Patient was informed and verbally consented to the use of an ambient scribe for clinic note documentation during this visit. Visit time spent on chart review, interview, assessment, orders, documentation. Coding Level of Care Code Est Pt Level 4 (21372) Add On Problem Visit Only Diagnoses Coronary artery arteriosclerosis I25.10 Stented coronary artery Z95.5 S/P cardiac cath Z98.890 Mixed hyperlipidemia E78.2 Elevated liver enzymes R74.8 Obesity (BMI 30.0-34.9) E66.9 History of DVT (deep vein thrombosis) Z86.718 JESSICA (obstructive sleep apnea) G47.33 Palpitation R00.2 Time Spent (min) 32
== END 2025-02-08 09:08 | disposition home or self-care (01) ==
LOC: HO.HCS 08:30
PROVIDERS: PCP Internal Medicine; Visit Provider Nurse Practitioner Family
DX: I25.10 Atherosclerotic heart disease of native coronary artery without angina pectoris (principal); Z95.5 Presence of coronary angioplasty implant and graft; Z98.890 Other specified postprocedural states; E78.2 Mixed hyperlipidemia; R74.8 Abnormal levels of other serum enzymes; E66.9 Obesity, unspecified; Z86.718 Personal history of other venous thrombosis and embolism; G47.33 Obstructive sleep apnea (adult) (pediatric); R00.2 Palpitations
CPT/HCPCS: 99214

== ENCOUNTER 2025-02-11 17:13 | Outpatient (AMB) | payer BC, SELFPAY ==
[2025-02-11 17:21] VITALS: BP 114/62; PULSE 67; O2SAT 96; BMI 33.9
--- NOTE | 2025-02-11 17:21 | MHC.PC.OV ---
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: No Accompanied by: Self / Same As Patient Allergies oxycodone (Percocet) Adverse Reaction (Unknown, Verified 02/11/25 17:30) nausea Medication List - Last Reconciled 02/11/25 by Xochilt Campbell MD acetaminophen 650 mg (2 x 325 mg) PO Q6H PRN 30 days amlodipine 2.5 mg PO DAILY aspirin 81 mg PO DAILY comp.stocking,thigh,long,large (EMS Anti-Embolism Stocking) As Directed enoxaparin (Lovenox) 120 mg (0.8 mL) subcut Q12H ibuprofen 400 mg PO Q8H PRN metoprolol succinate ER (Toprol XL) 25 mg PO BEDTIME nitroglycerin 0.4 mg sublingual Q5M PRN oxycodone 5 mg PO DAILY PRN ticagrelor (Brilinta) 90 mg PO BID Tobacco use date assessed: 07/26/24 Dental Screening Dental Screen Date: 07/26/24 HPI HPI Comments History of Present Illness Details This is a 49-year-old male with stented coronary artery, chronic bilateral DVT of femoral veins and transaminitis that comes today for follow-up on his conditions. Recently had PCI with stent in left anterior descending and still have palpitations. Holter monitor pending. On chronic anticoagulation due to chronic bilateral DVT. Still has mild transaminitis that will be follow and he does see Gastroenterology for this matter. He is obese with a BMI of 33.9 and was advised to do diet and exercise to reach BMI goal less than 30. [facility] Medical History (Updated 02/11/25 @ 20:37 by Xochilt Campbell MD) Chronic bilateral deep vein thrombosis (DVT) of femoral veins Pulmonary embolism Pleuritic chest pain DVT, bilateral lower limbs Chest pain Heartburn Colon cancer screening Neck pain Nocturnal hypoxemia Obesity (BMI 30-39.9) History of renal failure Hypercholesteremia History of DVT (deep vein thrombosis) JESSICA (obstructive sleep apnea) Surgical History History of hip surgery H/O knee surgery History of back surgery H/O kidney removal Family History Mother Essential hypertension Father CAD (coronary artery disease) Maternal Grandfather Cancer Social History Household Members: Spouse Housing: House Are you a primary family member caretaker to a significant other at home: No Do you presently have visiting nurse or other home services: No Alcohol intake: current Alcohol intake frequency: does not drink Alcohol type: beer Patient Tobacco Use Status: Never used Tobacco Tobacco use type: Cigarette e-Cigarette/Vaping Use: Never Used Second Hand Smoke Exposure: No service: No Current occupational status: employed Current occupational exposures/hazards: No Cognitive needs: No Hearing needs: No Vision needs: Yes Questionnaire PHQ-9 Over the last 2 weeks, how often have you been bothered by any of the following problems? 1. Little interest or pleasure in doing things: several days 2. Feeling down, depressed, or hopeless: not at all 3. Trouble falling or staying asleep, or sleeping too much: nearly every day 4. Feeling tired or having little energy: more than half the days 5. Poor appetite or overeating: several days 6. Feeling bad about yourself - or that you are a failure or have let yourself or your family down: not at all 7. Trouble concentrating on things, such as reading the newspaper or watching television: not at all 8. Moving or speaking so slowly that other people could have noticed. Or the opposite - being so fidgety or restless that you have been moving around a lot more than usual: several days 9. Thoughts that you would be better off or of hurting yourself in some way: not at all Total score: 8 Depression Screening Interpretation: Positive Depression Screening Follow-up: Existing condition and Follow-up Visit Requested Depression Screening Done: Yes 02023 - PHQ-9 Billing: Yes Source: Developed by Drs. Hieu Rothman, Tina Greenberg, Kennedy Nicholson and colleagues, with an educational tera from [employer]. Thrive Questionnaire Date Thrive assessed: 11/29/24 I am a: Patient What is your living situation today?: I have a steady place to live Within the past 12 months, did the food you bought not last and you didn't have the money to get more?: Never true Within the past 12 months, did you worry whether your food would run out before you got money to buy more?: Never true Do you have trouble paying for medicines?: No Do you have trouble getting transportation to medical appointments?: No Do you have trouble paying your heating and electricity bill?: No Do you have trouble taking care of your child, family member or friend?: No Do you have trouble with day-to-day activities such as bathing, preparing meals, shopping, managing finances, etc.?: No Are you currently unemployed and looking for a job?: No Are you interested in more education?: I choose not to answer this question Please select the resources that you would like help with: None Currently or been in a relationship where the following occur: No concerns reported THRIVE Score: 0 AUDIT C Alcohol Use Questionnaire (AUDIT-C) 1. How often do you have a drink containing alcohol?: Monthly or less 2. How many drinks containing alcohol do you have on a typical day when you are drinking?: 1 or 2 3. How often do you have six or more drinks on one occasion?: Less than monthly Total Score: 2 Score Reviewed/Action Taken: No ANGELIC-7 AMB Questionnaire ANGELIC-7 Date ANGELIC - 7 assessed: 02/11/25 Feeling nervous, anxious, or on edge: 1 = Several days Not being able to stop or control worryin = Several days Worrying too much about different things: 1 = Several days Trouble relaxin = Several days Being so restless that it is hard to sit still: 1 = Several days Becoming easily annoyed or irritable: 1 = Several days Feeling afraid as if something awful might happen: 1 = Several days Total ANGELIC-7 score (0-4 normal; 5-9 mild; 10-14 moderate; 15-21 severe): 7 Source: Developed by Drs. Hieu Rothman, Tina Greenberg, Kennedy Nicholson and colleagues, with an educational tera from [employer] ANGELIC-7 Assessment Billing ANGELIC-7 Assessment Tool: ANGELIC-7 Assessment 68830 Review of Systems Const All systems reviewed & are unremarkable except as noted in HPI and below Card Denies chest pain at rest, Denies chest pain with activity, Denies edema, Denies irregular heart rhythm, Denies claudication, Denies dyspnea, Denies dyspnea on exertion, Denies orthopnea, Denies paroxysmal nocturnal dyspnea and Denies slow heart rate Resp Denies cough, Denies dyspnea and Denies dyspnea on exertion Physical exam (Primary Care) Vital Signs: Last Vital Signs Pulse 67 02/11/25 17:21 BP 114/62 02/11/25 17:21 Pulse Ox 96 02/11/25 17:21 Oxygen Delivery Method Room Air 02/11/25 17:21 BMI result Body Mass Index 33.9 Tobacco/Smoking Status: Tobacco use Status Tobacco use date assessed 07/26/24 02/11/25 17:24 Patient Tobacco Use Status Never used Tobacco 02/11/25 17:24 Tobacco use type Cigarette 02/11/25 17:24 e-Cigarette/Vaping Use Never Used 02/11/25 17:24 PHQ-9: PHQ-9 Score PHQ-9: Total score 8 02/11/25 17:34 Depression Screening Interpretation: Positive Depression Screening Follow-up: Existing condition and Follow-up Visit Requested Thrive Assessment: Date of Thrive Assessment Date Thrive assessed 11/29/24 02/11/25 17:24 Currently or been in a relationship where the following occur: No concerns reported Resp Effort & Inspection: normal respiratory effort Auscultation: clear to auscultation bilaterally Cardio Jugular venous distension: no JVD Rate: regular rate Rhythm: regular rhythm Heart sounds: S1 normal heart sound present and S2 normal heart sound present Extrem General: Yes full ROM Coding Level of Care Code Add On Preventative Visit Only Diagnoses Stented coronary artery Z95.5 Transaminitis R74.01 Chronic bilateral deep vein thrombosis (DVT) of femoral veins I82.513 Additional Codes ANGELIC-7 Assessment Billing - ANGELIC-7 Assessment Tool: ANGELIC-7 Assessment [id number] ([id number]) PHQ-9 - 02679 - PHQ-9 Billing: Yes ([id number]) Time Spent (min) 19 Assessment & Plan Assessment & Plan (1) Stented coronary artery: Comment: 01/17/2025, lad stent Code(s): Z95.5 - Presence of coronary angioplasty implant and graft Category: Surgical (2) Transaminitis: Code(s): R74.01 - Elevation of levels of liver transaminase levels Category: Medical (3) Chronic bilateral deep vein thrombosis (DVT) of femoral veins: Code(s): I82.513 - Chronic embolism and thrombosis of femoral vein, bilateral Category: Medical Plan Continue chronic anticoagulation. Repeat liver panel. Lipid panel ordered. Continue aspirin for secondary prophylaxis of coronary artery disease. Start diet and exercise to reach BMI goal less than 30.
== END 2025-02-11 17:46 | disposition home or self-care (01) ==
LOC: HO.HMCH 17:13
PROVIDERS: PCP Internal Medicine; Visit Provider Internal Medicine
DX: R74.01 Elevation of levels of liver transaminase levels (principal); I82.513 Chronic embolism and thrombosis of femoral vein, bilateral; Z95.5 Presence of coronary angioplasty implant and graft

== ENCOUNTER → 2025-02-11 17:13 | Outpatient (BNVA) | payer BC, SELFPAY | PROVIDERS: PCP Internal Medicine; Visit Provider Internal Medicine | DX: R74.01 Elevation of levels of liver transaminase levels (principal); I82.513 Chronic embolism and thrombosis of femoral vein, bilateral; Z95.5 Presence of coronary angioplasty implant and graft | CPT/HCPCS: 96127 ==